=== PATIENT | male | born 1985 | race Caucasian/White ===

== ENCOUNTER 2023-12-01 16:04 | Inpatient (IN) | payer OTHER, SELFPAY ==
[2023-12-01] VITALS (11 sets, daily range): BP systolic 125–167; BP diastolic 82–116; BMI 19.1
--- NOTE | 2023-12-01 11:17 | ED.GENMED ---
History of Present Illness
General
Chief Complaint: Withdrawal Symptoms
Source: patient
Exam Limitations: none
Time Seen by Provider: 12/01/23 10:47
Nursing documentation reviewed up to this point in time: agreed with
Travel History
Have you had any contact with someone who has COVID-19?: No
Do you have any symptoms of coronavirus? Fever > 100 degrees, chills, cough, shortness of breath, sore throat, loss of taste or smell, muscle aches, or headache?: No
History of Present Illness
History of Present Illness:
38-year-old male with a history of hypertension, alcohol abuse disorder, pancreatitis
here with symptoms of alcohol withdrawal since he stopped drinking alcohol
was drinking 1 pint of whiskey a day
had been sober at the beginning of this year after most recent hospitalization in 06/29 but then relapsed a month later and has been drinking more regularly the past few weeks, binge drinking, having withdrawal shakes and n/v int he morning that
will only stop if he drinks more
he stopped drinking 2 days ago and has had many episodes of vomiting since, most recnet while in ED room
some mild upper abd pain
feels anxious, a little agitated, having some tactile disturbances/burning/crawlers
no halluciations auditory or visual
no headche
no confusion
no h/o alcohol withrawal seizure
Past History
Past History
ED Past Medical History: Other (Alcohol abuse)
ED Past Surgical History: None
Social History
Tobacco: Smoker
Alcohol: Chronic alcoholic
Drug: None
Personal: Single
Living: with family
Employment: Employed
Family History
Family History: Other (Noncontributory)
Review of Systems
Review of Systems
Allergies reviewed?: Yes
All Other Systems: Not applicable
Phy Exam
Physical Exam
Physical Exam:
GENERAL: Alert , in no apparent distress
EYE: pupils equal and reactive
NECK: Supple
ENT: o/p clr, mmm.
CARDIAC: tachycardia
LUNGS: Clear breath sounds bilaterally, no acute respiratory distress, no wheezes/rales/rhonchi
ABDOMEN: Soft, without focal tenderness, no r/g, no cvat, normal bowel sounds
NEUROLOGICAL: Alert and oriented, no focal neuro deficits, tremor with movement only
SKIN: Warm and dry, skin intact. no diparhoesis
MUSCULOSKELETAL: No edema, well perfused. neg lali's sign
PSYCH: Normal and appropriate interaction mild anxiety;
Scores
Withdrawal Assessment of Alcohol
Withdrawal Assessment Completed?: Yes
Nausea and Vomiting: Constant nausea, frequent dry heaves and vomiting
Tactile Disturbances: Mild itching, pins and needles, burning or numbness
Tremor: Not visible, but can be felt fingertip to fingertip
Auditory Disturbances: Not present
Paroxysmal Sweats: No sweat visible
Visual Disturbances: Not present
Anxiety: Mild anxiety
Headache, Fullness in Head: Not present
Agitation: Normal activity
Orientation and clouding of sensorium: Oriented and can do serial additions
Total CIWA Score: 11
Alcohol Withdrawal Medication Recommendation: Equal to MSAS Score 5-7. Lorazepam 1mg IV or PO NOW & re-assess q2hrs
Course
Orders/Labs/Results
Orders:
Orders
12/01/23 10:39
EKG [Electrocardiogram (*1)] Urgent
Reason for Study: Tachycardia
EKG- Treatment ONCE
12/01/23 11:12
Urinalysis Reflex To Culture Urgent
Date Specimen was Collected: 12/01/23
Time Specimen was Collected: 11:18
Urine Drug Abuse Screen Urgent
Date Specimen was Collected: 12/01/23
Time Specimen was Collected: 11:18
Lorazepam [Ativan] 1 mg IV NOW STA
Ondansetron Injectable [Zofran] 4 mg IV NOW STA
Thiamine Injection 100 mg IV NOW STA
12/01/23 11:15
0.9% Sodium Chloride 1000 ml [Nss] 1,000 ml IV 1,000 mls/hr
12/01/23 11:17
Alcohol Urgent
Complete Blood Count/With Diff Urgent
Comprehensive Metabolic Panel Urgent
Lipase Urgent
Comment: ADD ON
Magnesium Urgent
Phosphorus Urgent
Prothrombin Time Urgent
12/01/23 11:20
0.9% Sodium Chloride 1000 ml [Nss] 1,000 ml IV BOLUS
12/01/23 11:42
Add On- LAB Urgent
Tests Added?: lipase
12/01/23 12:36
CT Abd/Pel (IV only)-DH only Urgent
Comment:
Reason For Exam: pancreaitis
12/01/23 12:42
Lactated Ringers [Lr] 1,000 ml IV BOLUS
12/01/23 13:34
Pantoprazole [Protonix IV] 40 mg IV NOW STA
12/01/23 13:40
Venous Blood Gas Urgent
%Oxygen/Room Air: 21
12/01/23 13:53
Dextrose 5%/Lactringers 1000ML [D5lr] 1,000 ml IV 1,000 mls/hr
12/01/23 14:00
Dextrose 5%/Lactringers 1000ML [D5lr] 1,000 ml IV 1,000 mls/hr
Dextrose 5%/Lactringers 1000ML [D5lr] 1,000 ml IV 200 mls/hr
Abnormal Lab Results
12/01/23
11:17
WBC 3.3 L 10^3/uL
(4.8-10.8)
MCH 33.3 H pg
(27.0-31.0)
Absolute Lymphs (auto) 0.7 L 10^3/uL
(1.2-3.4)
Lymphocytes % 20.2 L %
(20.5-51.1)
Monocytes % 16.0 H %
(1.7-9.3)
Sodium 130 L mmol/L
(135-145)
Chloride 80 L mmol/L
(98-107)
Phosphorus 2.1 L mg/dl
(2.5-4.5)
Total Bilirubin 1.8 H mg/dl
(0.2-1.3)
AST 291 H U/L
(17-59)
ALT 295 H U/L
(0-50)
Alkaline Phosphatase 129 H U/L
(38-126)
Total Protein 8.9 H g/dl
(6.3-8.2)
Albumin 5.4 H g/dl
(3.5-5.0)
Lipase 539 H U/L
(23-300)
12/01/23 11:17
12/01/23 11:17
Vital Signs
Initial and Last Documented VS:
Initial Vital Signs
Temp Pulse Resp BP Pulse Ox
98.3 F 104 20 167/116 100
12/01/23 10:34 12/01/23 10:34 12/01/23 10:34 12/01/23 10:34 12/01/23 10:34
Last Documented Vital Signs
Temp Pulse Resp BP Pulse Ox
98.3 F 84 19 141/104 100
12/01/23 10:34 12/01/23 12:30 12/01/23 12:30 12/01/23 12:00 12/01/23 12:30
MDM/Problems Addressed
Differential Diagnosis Includes:
pancreatitis, alcohol withdrawal
MDM/Problems Addressed:
james spears 38 y/o M alcoholic pancreatitis/vomiting/withdrawal
stopped drinking saturday night
vomiting for the past few days even before he stopped drinking
ciwa was 11 initially
1 mg ativan and now 7 or8
labs show transamitiis, which pt whas h/o but this is acutely worse
na 130
AG 21 will add dextrose to LR fluids
will check VBG
lipase 500s and ct shows some peripancreatic edema
pt requires admission
*Critical Care Note
Total Time (30-74mins, 75-104mins- exclusive of procedures): Not Applicable
ED Attending Note
-
Portions of this chart may have been created with voice recognition software.� Occasional wrong word or��sound alike� substitutions may have occurred due to the inherent limitations of voice recognition software.
Discharge Plan
Departure
Patient Disposition: Admit
Date of Disposition: 12/01/23
Time of Disposition: 13:29
Admit to: Med/Surg
Presentation/result/management discussed w/ accepting MD/DO: Hospitalist
Condition: Fair
Covid-19: Not Applicable
Discharge Problem:
Acute pancreatitis, Alcohol withdrawal
Prescriptions:
No Action
thiamine HCl (vitamin B1) 100 MG tablet
100 mg PO DAILY
multivitamin with folic acid [Tab-A-Bernie] 1 TABLET tablet
1 tab PO DAILY
folic acid 1 mg tablet
1 mg PO DAILY
pantoprazole [Protonix] 40 mg tablet,delayed release (DR/EC)
40 mg PO DAILYPRN PRN (Reason: gerd)
Referrals:
Mauro Abraham MD [Family Provider] -
Interventions
Interventions:
*Risk Screen - Suicide Last Done: 12/01/23 10:34
*General Assessment Last Done: 12/01/23 10:34
*Neglect/Abuse Screening Last Done: 12/01/23 10:34
*ED COVID-19 Vaccine History Last Done: 12/01/23 10:34
ED- Neurological Assessment Last Done: 12/01/23 11:13
ED-Psychological Assessment Last Done: 12/01/23 11:13
Discharge Date and Time
Print Language: TAJIK
[2023-12-01] MEDS: ZOFRAN 4 MG IV ×2 (11:20→21:57)
[2023-12-01] MEDS: THIAMINE INJECTION 100 MG IV (11:20)
[2023-12-01] MEDS: ATIVAN 1 MG IV (11:22)
[2023-12-01 11:24] LABS: % Basophils 0.9 % (0-2); % Eosinophils 0.3 % (0-6); % Immature Granulocytes 0.3 % (0-0.5); % Lymphocytes 20.2 % (20.5-51.1); % Neutrophils 62.3 % (42.2-75.2); Absolute Lymphocytes 0.7 10^3/uL (1.2-3.4); Absolute Monocytes 0.5 10^3/uL (0.1-0.6); Hematocrit 43.5 % (39.0-52.0); Hemoglobin 15.9 g/dL (13.0-18.0); Mean Corp Hgb Conc. 36.6 g/dL (33.0-37.0); Mean Corpuscular Hgb 33.3 pg (27.0-31.0); Mean Platelet Volume 9.9 fL (7.4-10.4); Nucleated Red Blood Cells % 0 % (-); Platelet Count 168 10^3/uL (130-400); Red Blood Cell Count 4.78 10^6/uL (4.70-6.10); Red Cell Dist. Width 12.3 % (11.5-14.5); White Blood Cell Count 3.3 10^3/uL (4.8-10.8)
[2023-12-01] MEDS: NSS 1000 IV ×3 (11:24→21:57)
[2023-12-01 11:33] LABS: INR 1.01; PT 13.1 Sec (11.4-14.6)
[2023-12-01 11:40] LABS: ALT (SGPT) 295 U/L (0-50); AST (SGOT) 291 U/L (17-59); Albumin 5.4 g/dl (3.5-5.0); Alcohol None Detected; Alkaline Phosphatase 129 U/L (38-126); Blood Urea Nitrogen 14 mg/dl (9-20); Calcium 10.2 mg/dl (8.4-10.2); Carbon Dioxide 29 mmol/L (22-30); Chloride 80 mmol/L (98-107); Glucose 85 mg/dl (70-99); Magnesium 1.9 mg/dl (1.6-2.3); Phosphorus 2.1 mg/dl (2.5-4.5); Potassium 3.7 mmol/L (3.5-5.1); Sodium 130 mmol/L (135-145); Total Bilirubin 1.8 mg/dl (0.2-1.3); Total Protein 8.9 g/dl (6.3-8.2); eGFR > 60.00
[2023-12-01 11:59] LABS: Lipase 539 U/L (23-300)
[2023-12-01] MEDS: LR 1000 IV (13:29)
[2023-12-01] MEDS: PROTONIX IV 40 MG IV (13:51)
[2023-12-01] MEDS: D5LR 1000 IV (13:57)
[2023-12-01 14:10] LABS: Venous Blood Gas B.E. 5.4 mmol/L (-4 to +4); Venous Blood Gas O2 Sat % 99.2 %; Venous Blood Gas pCO2 38 mmHg (35-48); Venous Blood Gas pH 7.49 (7.32-7.43); Venous Blood Gas pO2 96 mmHg (30-50)
--- NOTE | 2023-12-01 15:31 | HPS.HSE ---
Family Physician
-
Family Physician: Mauro Abraham
Chief Complaint
-
nausea, vomiting
History of Present Illness
38-year-old man with a history of hypertension, alcohol abuse disorder, pancreatitis comes to hospital today with symptoms of alcohol withdrawal since he stopped drinking alcohol. He was drinking 1 pint of whiskey a day, he had been sober at the
beginning of this yea,r after most recent hospitalization in 06/29, but then relapsed a month later and has been drinking since then. He has also been binge drinking, and having withdrawal shakes, and n/v int he morning that will only stop if he
drinks more. He stopped drinking 2 days ago and has had many episodes of vomiting since then. While in ED he has had mild upper abd pain, feels anxious, agitated, tactile disturbances/burning/crawlers. However, he has had no halluciations
auditory or visual, no headache, no confusion, no h/o alcohol withrawal seizure.
Medical History
Past Medical History
Past Medical History: Reports Other
Additional Past Medical History:
Alcohol abuse
Pancreatitis
Gerd
Evelyne-Sage tear
alcoholic hepatitis
Past Surgical History: Reports None
Social History
Tobacco: Non-smoker
Alcohol: Chronic Alcoholic
Drug: None
Family History
Family History: Not pertinent
Allergies / Home Medications
Allergies reflects when Allergies were last updated in [facility].
Home Medications with original date entered in [facility]
Allergy/Medication List:
Allergies
Allergy/AdvReac Type Severity Reaction Status Date / Time
Sulfa (Sulfonamide Allergy Mild Rash Verified 12/01/23 10:33
Antibiotics)
Home Medications
multivitamin with folic acid 400 mcg tablet (Tab-A-Bernie) 1 tab PO DAILY Supplement 10/03/21
thiamine HCl (vitamin B1) 100 mg tablet 100 mg PO DAILY Supplement 10/03/21
folic acid 1 mg tablet 1 mg PO DAILY Supplement 06/18/23
pantoprazole 40 mg tablet,delayed release (Protonix) 40 mg PO DAILYPRN PRN gerd 12/01/23
Review of Systems
-
History Source: Patient
A 12 point ROS was completed and negative except as noted: Yes
Physical Exam
Vital Signs
Vital Signs
Temp Pulse Resp BP Pulse Ox
98.3 F 96 21 141/99 100
12/01/23 10:34 12/01/23 15:00 12/01/23 15:00 12/01/23 15:00 12/01/23 15:00
Physical Exam
General: Well Developed, Well Nourished, No Apparent Distress, Comfortable and Conversant
HEENT: NormoCephalic, Moist mucous membranes, Nose Appears Normal and Ears Appear Normal
Respiratory: Clear
Cardiac: S1/S2 and Regular Rhythm
GI: Soft, Non Tender and Non Distended
Musculoskeletal: No Clubbing, No Cyanosis and No Edema
Skin: Warm and Dry; No Rash or Jaundice
Neuro: Awake, Alert, Oriented and AO x 3
Psych: Calm
Laboratory Results
-
12/01/23 11:17
12/01/23 11:17
Laboratory Results
PT 13.1 Sec (11.4-14.6) 12/01/23 11:17
INR 1.01 12/01/23 11:17
Total Bilirubin 1.8 mg/dl (0.2-1.3) H 12/01/23 11:17
AST 291 U/L (17-59) H 12/01/23 11:17
ALT 295 U/L (0-50) H 12/01/23 11:17
Alkaline Phosphatase 129 U/L (38-126) H 12/01/23 11:17
Lipase 539 U/L (23-300) H 12/01/23 11:17
Data Reviewed
-
Lab Data: Labs Reviewed by me
Impression/Plan
-
IMPRESSION:
38 man with alcohol withdrawal and pancreatitis. Significant findings:
WBC 3.3
Na 130
Phos 2.1
TB 1.8
AST 291
ALT 295
Aphos 129
Lipase 539
Suspected minimal edematous changes of the pancreas, suggesting minimal/early acute pancreatitis.
No focal abnormal peripancreatic fluid collection.
Diffuse fatty liver.
Cannot exclude small hiatal hernia.
Likely sigmoid diverticulosis.
PLAN:
1. Pancreatitis - likely from alcohol
NPO
IV saline
Pain control
2. Alcohol WD
Benzodiazepines per protocol
3. Low Na - likely hypovolemic
IV saline
4. Low phos - likely malnutrition
Supplement
5. Alcoholism - will need outpt support to maintain sobriety
Social work consult
Full code
VCD for DVTp
[2023-12-01 16:42] LABS: Urine Albumin Trace (Neg - Trace); Urine Bilirubin 1+ (Negative); Urine Character Clear (Clear); Urine Color Yellow; Urine Glucose 3+ (Negative); Urine Ketone 3+ (Negative); Urine Leukocyte Negative (Negative); Urine Nitrite Negative (Negative); Urine Occult Blood Negative (Negative); Urine Specific Gravity 1.005 (<1.030); Urine Urobilinogen 2+ (Neg - 1+)
[2023-12-01 16:52] LABS: Amphetamines Negative (Negative); Barbiturates Negative (Negative); Benzodiazepines Positive (Negative); Buprenorphine Negative (Negative); Cocaine Negative (Negative); Marijuana Positive (Negative); Methadone Negative (Negative); Methamphetamines Negative (Negative); Opiates Negative (Negative); Phencyclidine Negative (Negative); Tricyclic Antidepressants Negative (Negative)
[2023-12-01 17:08] LABS: Fentanyl, Urine Negative (Negative)
[2023-12-01 17:41] LABS: INR 1.17; PT 14.8 Sec (11.4-14.6)
[2023-12-01 17:42] LABS: APTT 27.2 Sec (23.4-35.0)
[2023-12-01 17:43] LABS: Magnesium 1.7 mg/dl (1.6-2.3); Phosphorus 1.1 mg/dl (2.5-4.5)
[2023-12-01] MEDS: THIAMINE INJECTION 200 MG IV ×2 (18:15→23:50)
--- NOTE | 2023-12-01 21:45 | PTCARENOTE ---
Pt requested sleep medication. ALTERATIONS EXPERT made aware, new order provided, see MAR. Will continue to monitor.
--- NOTE | 2023-12-01 21:50 | PTCARENOTE ---
Pt complained of post nasal drip, requested saline spray. Pt complained of 5/10 pain throughout RUQ. MARKETING AND OUTREACH COORDINATOR made aware, new orders provided, see MAR.
[2023-12-01] MEDS: PROTONIX 40 MG PO (21:57)
[2023-12-01] MEDS: MELATONIN 5 MG PO (21:57)
[2023-12-01] MEDS: OCEAN, SALINE MIST 1 SPRAYS NASAL (22:06)
[2023-12-01] MEDS: TORADOL 15 MG IV (22:30)
[2023-12-02] MEDS: NSS 1000 IV ×3 (02:53→13:09)
[2023-12-02 06:58] LABS: Hematocrit 35.7 % (39.0-52.0); Hemoglobin 12.9 g/dL (13.0-18.0); Mean Corp Hgb Conc. 36.1 g/dL (33.0-37.0); Mean Corpuscular Hgb 33.4 pg (27.0-31.0); Mean Corpuscular Volume 92.5 fL (80.0-94.0); Mean Platelet Volume 10.7 fL (7.4-10.4); Platelet Count 139 10^3/uL (130-400); Red Blood Cell Count 3.86 10^6/uL (4.70-6.10); Red Cell Dist. Width 12.1 % (11.5-14.5); White Blood Cell Count 3.9 10^3/uL (4.8-10.8)
[2023-12-02 07:00] VITALS: BP 130/93
[2023-12-02 07:21] LABS: ALT (SGPT) 189 U/L (0-50); AST (SGOT) 189 U/L (17-59); Albumin 3.8 g/dl (3.5-5.0); Alkaline Phosphatase 89 U/L (38-126); Blood Urea Nitrogen 5 mg/dl (9-20); Calcium 8.4 mg/dl (8.4-10.2); Carbon Dioxide 27 mmol/L (22-30); Chloride 96 mmol/L (98-107); Estimated Creatinine Clearance 114 ml/min; Glucose 71 mg/dl (70-99); Lipase 580 U/L (23-300); Magnesium 1.7 mg/dl (1.6-2.3); Potassium 3.4 mmol/L (3.5-5.1); Sodium 133 mmol/L (135-145); Total Bilirubin 1.9 mg/dl (0.2-1.3); Total Protein 6.5 g/dl (6.3-8.2); eGFR > 60.00
[2023-12-02] MEDS: THIAMINE INJECTION 200 MG IV ×3 (07:55→23:54)
[2023-12-02] MEDS: ZOFRAN 4 MG IV ×2 (08:04→21:33)
--- NOTE | 2023-12-02 13:07 | W.PN.HOSP.TC ---
Today's Communication/Plan
-
trial of CL diet
slow IVF
continue monitoring for alc withdrawal
Assessment / Plan
Assessment / Plan
CT a/p
Suspected minimal edematous changes of the pancreas, suggesting minimal/early acute pancreatitis. No focal abnormal peripancreatic fluid collection.
Diffuse fatty liver.
Cannot exclude small hiatal hernia.
Likely sigmoid diverticulosis.

1. Acute pancreatitis
History of recurrent pancreatitis
Elevated liver enzymes
-Presumed alcohol use related pancreatitis
-CTAP report as above
-Minimal lipase elevation of 539 at admission
-Was maintained on IV fluid overnight
-Start on trial of clear liquid diet
-Check right upper quadrant ultrasound
2. Alcohol use disorder
History of alcohol withdrawal
-Patient had tried alcohol rehab 3 times
-Was sober few months back although relapsed
-Last reported drink on Saturday
-Admitted on MSAS with Ativan
3. GERD
-Continue oral Protonix, increase frequency to twice
4. Nausea/vomiting
-Likely from pancreatitis
-Continue symptomatic care
Normocytic anemia
Mild hyponatremia
Hypokalemia
Hepatic steatosis
Diverticulosis
DVT prophylaxis -SCD
Full code
Anticipated Discharge: 24 - 48 hours
Subjective/Interval History
-
Date of Service: December 02, 2023
Denies having excessive abdominal pain
Some nausea without vomiting
Afebrile overnight
Objective Data
-
Labs:
Laboratory Results
12/02/23
05:38
WBC 3.9 L
Hgb 12.9 L
Hct 35.7 L
Plt Count 139
Sodium 133 L
Potassium 3.4 L
Chloride 96 L
Carbon Dioxide 27
BUN 5 L
Creatinine 0.7
Glucose 71
Calcium 8.4 D
Total Bilirubin 1.9 H
AST 189 H
ALT 189 H
Alkaline Phosphatase 89
Vital Signs:
Vital Signs
Temp Pulse Resp BP Pulse Ox
98.1 F 84 16 130/93 98
12/02/23 07:00 12/02/23 07:00 12/02/23 07:00 12/02/23 07:00 12/02/23 07:00
I&O
12/01/23 12/02/23 12/03/23
06:59 06:59 06:59
Intake Total 2520 / 2520
Output Total 0 / 0
Balance 2520 / 2520
Review of Systems
-
Respiratory: Reports No Symptoms
Cardiac: Reports No Symptoms
Abdomen/GI: Reports Abdominal Pain and Nausea; Denies Vomiting
Physical Exam
-
General: Negative Appears in Distress
HEENT: Negative Oxygen
GI: Soft and Tender (epigastric )
Musculoskeletal: No Edema
Neuro: Awake, Alert and Oriented
Psych: Calm
[2023-12-02] MEDS: KCL 20 MEQ PO (13:39)
[2023-12-02] MEDS: TYLENOL 650 MG PO (13:40)
[2023-12-02 15:00] VITALS: BP 134/87
[2023-12-02 15:05] VITALS: BMI 19.1
[2023-12-02] MEDS: THERAGRAN 1 TABLET PO (18:03)
[2023-12-02] MEDS: OCEAN, SALINE MIST 1 SPRAYS NASAL (21:30)
--- NOTE | 2023-12-02 21:30 | PTCARENOTE ---
Pt requested medication to sleep, REGIONAL ADMINISTRATIVE ASSISTANT made aware, new order provided, see MAR. Will continue to monitor.
[2023-12-02] MEDS: PROTONIX 40 MG PO (21:33)
[2023-12-02] MEDS: MELATONIN 5 MG PO (21:58)
[2023-12-02 23:00] VITALS: BP 128/93
[2023-12-03] MEDS: NSS 1000 IV ×2 (00:24→09:05)
[2023-12-03 06:32] LABS: ALT (SGPT) 191 U/L (0-50); AST (SGOT) 232 U/L (17-59); Albumin 4.2 g/dl (3.5-5.0); Alkaline Phosphatase 93 U/L (38-126); Blood Urea Nitrogen 2 mg/dl (9-20); Calcium 9.6 mg/dl (8.4-10.2); Carbon Dioxide 24 mmol/L (22-30); Chloride 99 mmol/L (98-107); Estimated Creatinine Clearance > 125 ml/min; Glucose 86 mg/dl (70-99); Magnesium 1.7 mg/dl (1.6-2.3); Phosphorus 2.1 mg/dl (2.5-4.5); Potassium 3.5 mmol/L (3.5-5.1); Sodium 135 mmol/L (135-145); Total Bilirubin 1.6 mg/dl (0.2-1.3); Total Protein 7.1 g/dl (6.3-8.2); eGFR > 60.00
--- NOTE | 2023-12-03 06:32 | PTCARENOTE ---
Pt complained of reflux, COLOR PRINTER OPERATOR made aware, new order provided, see MAR. Will continue to monitor.
[2023-12-03] MEDS: TUMS 1 TABLET PO (06:34)
[2023-12-03 07:00] VITALS: BP 131/91
[2023-12-03] MEDS: THERAGRAN 1 TABLET PO (09:05)
[2023-12-03] MEDS: THIAMINE INJECTION 200 MG IV ×3 (09:05→23:27)
--- NOTE | 2023-12-03 11:38 | W.PN.HOSP.TC ---
Today's Communication/Plan
-
FL diet for lunch and LF for dinner
d/c further IVF
possible d/c in 24 hrs
Assessment / Plan
Assessment / Plan
CT a/p
Suspected minimal edematous changes of the pancreas, suggesting minimal/early acute pancreatitis. No focal abnormal peripancreatic fluid collection.
Diffuse fatty liver.
Cannot exclude small hiatal hernia.
Likely sigmoid diverticulosis.

1. Acute pancreatitis
History of recurrent pancreatitis
Elevated liver enzymes
-Presumed alcohol use related pancreatitis
-CTAP report as above
-Minimal lipase elevation of 539 at admission
-Right upper quadrant ultrasound showing hepatic steatosis. No gallstones
-Start trial of full liquid diet from lunch and advance as tolerated to low-fat diet
2. Alcohol use disorder
History of alcohol withdrawal
-Patient had tried alcohol rehab 3 times
-Was sober few months back although relapsed
-Last reported drink on Saturday
-Admitted on [facility] with Ativan
-No signs of withdrawal at this point
3. GERD
-Continue oral Protonix, increase frequency to twice
4. Nausea/vomiting
-Likely from pancreatitis
-Slowly improving, continue symptomatic care
Normocytic anemia
Mild hyponatremia
Hypokalemia
Hepatic steatosis
Diverticulosis
DVT prophylaxis -SCD
Full code
Anticipated Discharge: Within 24 hours
Subjective/Interval History
-
Date of Service: December 03, 2023
Denies of having any abdominal pain and night
Nausea is improved
Able to tolerate diet without problem
Objective Data
-
Labs:
Laboratory Results
12/03/23
05:16
Sodium 135
Potassium 3.5
Chloride 99
Carbon Dioxide 24
BUN 2 L
Creatinine 0.6 L
Glucose 86
Calcium 9.6
Total Bilirubin 1.6 H
AST 232 H
ALT 191 H
Alkaline Phosphatase 93
Vital Signs:
Vital Signs
Temp Pulse Resp BP Pulse Ox
98.7 F 86 16 131/91 97
12/03/23 07:00 12/03/23 07:00 12/03/23 07:00 12/03/23 07:00 12/03/23 07:00
I&O
12/02/23 12/03/23 12/04/23
06:59 06:59 06:59
Intake Total 2520 / 2520 5880 / 5880
Output Total 0 / 0
Balance 2520 / 2520 5880 / 5880
Review of Systems
-
Respiratory: Reports No Symptoms
Cardiac: Reports No Symptoms
Abdomen/GI: Reports Nausea; Denies Abdominal Pain or Vomiting
Physical Exam
-
General: Negative Appears in Distress
HEENT: Negative Oxygen
GI: Soft, Nontender and Nondistended
Musculoskeletal: No Edema
Neuro: Awake, Alert and Oriented
Psych: Calm
[2023-12-03 15:00] VITALS: BP 130/93
--- NOTE | 2023-12-03 15:05 | CM ---
Alert awake oriented patient who lives with his parents Walt Roth who lives in a 2 story home with 3 step to enter and 30 steps to bed and bathroom. He is independent in all activities of daily living.He was offered VN he declined need.He
declined substance abuse counseling he has been in many program in past..
NO VN hx / No SNF history
Pharmacy [facility]
PCP DR Wild Bravo
PLAN Home Declined VN
[2023-12-03] MEDS: ZOFRAN 4 MG IV (17:28)
[2023-12-03] MEDS: PROTONIX 40 MG PO (21:25)
[2023-12-03] MEDS: MELATONIN 5 MG PO (21:25)
[2023-12-03 23:25] VITALS: BP 120/83
[2023-12-04 06:22] LABS: ALT (SGPT) 346 U/L (0-50); AST (SGOT) 503 U/L (17-59); Albumin 4.4 g/dl (3.5-5.0); Alkaline Phosphatase 106 U/L (38-126); Blood Urea Nitrogen 6 mg/dl (9-20); Calcium 9.9 mg/dl (8.4-10.2); Carbon Dioxide 25 mmol/L (22-30); Chloride 100 mmol/L (98-107); Estimated Creatinine Clearance 114 ml/min; Glucose 107 mg/dl (70-99); Potassium 3.9 mmol/L (3.5-5.1); Sodium 134 mmol/L (135-145); Total Bilirubin 1.3 mg/dl (0.2-1.3); Total Protein 7.4 g/dl (6.3-8.2); eGFR > 60.00
--- NOTE | 2023-12-04 06:31 | PTCARENOTE ---
Critical AST of 503 reported to KIKE Strong. No new orders at this time. Care ongoing.
[2023-12-04 07:30] VITALS: BP 123/88
[2023-12-04] MEDS: THIAMINE INJECTION 200 MG IV (08:00)
[2023-12-04] MEDS: THERAGRAN 1 TABLET PO (08:00)
--- NOTE | 2023-12-04 12:49 | CON.GI ---
Addendum entered and electronically signed by Eugenia Martin MD 12/04/23 16:00:
I saw and examined the patient.
The ETL LEAD's note was reviewed and I agree with the note.
Comment: This is a 38-year-old male who has a history of alcoholism, alcohol hepatitis, recurrent alcohol pancreatitis and has had multiple visits to the ER for alcohol withdrawal. He also has a history of LA grade D esophagitis which did improve
on PPI on repeat endoscopy in 2022 and has been on Protonix. He has been in rehab a few times in the past both inpatient and outpatient but unfortunately had relapsed he says he also has tried naltrexone in the past. He had been drinking alcohol
up until 11/28 and he presented to the emergency room on 11/30 with symptoms of nausea vomiting and withdrawal and also was noted to have mild alcohol pancreatitis with abnormal LFTs. His symptoms had improved and he was actually going to be
discharged home today but he was noted to have an acute rise in transaminitis with AST greater than ALT for which we were consulted. He says that he been drinking excessive amounts of alcohol especially during COVID in 2018 and he was drinking
about 2 pints of whiskey daily then and he has been cutting back to 1 pint daily.
Assessment and plan 1 alcohol withdrawal symptoms which have improved and mild recurrent alcohol pancreatitis which also has improved
2 abnormal LFTs with worsening AST and ALT today, bilirubin and alkaline phosphatase have trended down. I do still think this is most likely alcohol hepatitis, ultrasound shows hepatic steatosis no obvious cirrhosis noted and no gallstones noted no
ductal dilatation seen. Will get acute viral hepatitis serologies and repeat LFTs in a.m. if they are still trending up then will proceed with further workup to rule out other underlying chronic liver diseases including autoimmune hepatitis. may
also need MRI. If LFTs are trending down will need further workup as outpatient including FibroScan and also advised strict alcohol abstinence told him to follow-up for outpatient rehab he does not want to go for inpatient alcohol rehab and also
consider restarting naltrexone he said he did not really have much success with AA meetings in the past.
3. History of esophagitis continue PPI
Original Note:
Consultation
-
Date/Time Consultation Requested: 12/04/23 @ 08:09
Date/Time Consultation Performed: 12/04/23 @ 14:00
Requesting Provider: Dr. Glasgow
Performing Provider: KIKE Barakat; Dr. Martin
Reason for Consultation: acute transaminitis
Medical History
Chief Complaint / HPI
Chief Complaint: nausea, vomiting
History of Present Illness:
The pt is a 38 yo male with a PMH significant for HTN, alcohol abuse, prior episode of pancreatitis, alcoholic hepatitis, LA grade D esophagitis on PPI, who initially presented to the ER with complaints of nausea and vomiting on 11/30. He presented
with symptoms of alcohol withdrawal after stopping alcohol use. He had stopped drinking 2 days prior to admission, and developed nausea with vomiting. Also with complaints of abdominal pain, anxiety, and shakes. He underwent CT imaging of the
abdomen and pelvis which showed findings consistent with minimal/early pancreatitis with no fluid collections or necrosis. Other findings include diffuse fatty liver, possible small hiatal hernia, and sigmoid diverticulosis without evidence of
diverticulitis although limited given no oral contrast. Initially on admission his LFTs were elevated showing a total bilirubin of 1.8, AST 291, ALT 295, and alk phos 129. His lipase was mildly elevated at 539. He was treated for pancreatitis
with IV fluids along with clear liquid diet as he improved. Also being monitored for alcohol withdrawal. He was treated symptomatically for his nausea and vomiting. He subsequently underwent ultrasound of the abdomen which did not show any acute
findings such as biliary ductal dilation or evidence of cholecystitis or gallstone. This morning his LFTs were repeated and noted to be up-trending with an AST of 503, and ALT 346 with a normalized alk phos and total bilirubin. Pertinent lab
findings include sodium 134, WBC 3.9, hemoglobin 12.9, albumin 4.4, potassium 3.9. We are now being asked to evaluate for his increasing transaminases. Upon review of prior records, he was seen by our group in June 2022 with hematemesis. At
that time thought to be secondary to Evelyne-Sage tear with a normal hemoglobin. He underwent EGD with Dr. Mcneill on 06/12/2022 which did show LA grade D esophagitis and was advised to continue on PPI twice daily. He had subsequent endoscopy
outpatient on August 03, 2022 which showed improvement with LA grade a reflux esophagitis with no evidence of Kaiser's esophagus and mild gastritis. He was advised to continue on PPI twice daily and then taper to once daily. The patient notes he
has had recurrent ER evaluations and admissions due to alcohol abuse. He notes trying to quit multiple times in the past and has been through rehab with no success. He notes that his last drink was on Saturday. After stopping he developed
significant sweats, nausea, and vomiting. These are very typical symptoms he experiences when he stops alcohol. He does note he has had some increased indigestion with near regurgitation, despite taking pantoprazole 40 mg daily, but he notes that
he did taper off of this recently. He developed significant pain in the upper abdomen that radiated to his back, that was severe in nature therefore warranting ER evaluation. He denies any unintentional weight loss, change in bowel habits, signs
of bleeding such as melena, hematochezia, or hematemesis, fevers, or chills.He denies any unintentional weight loss, change in bowel habits, signs of bleeding such as melena, hematochezia, or hematemesis, fevers, or chills.He denies any history of
hepatitis or liver disease. He does drink alcohol chronically about 1 pint of liquor daily. He was smoking cigarettes up to 6 months ago and has since quit. He denies any history of IV drug use but does have a history of opioid use in the past.
He notes at this point in time his nausea and vomiting has subsided and he is tolerating a regular diet. His pain is also improving as well. Prior EGD as noted above. He has never had a colonoscopy. He does note he has a family history of
autoimmune disease in which his brother and father have celiac disease. He was tested in the past and was negative. He has had pancreatitis in the past thought to be secondary to alcohol use. He notes he does take Tylenol as needed but not in
excess. He denies any new medications started at home. I did review his medication list here and there are no significant medications that would induce liver injury. Upon review of prior labs he does have chronic elevation of his AST and ALT
anywhere from normal to the upper 300 range over the past 4 years.
Past Medical History
Past Medical History: GERD, HTN and Other (Alcohol abuse, pancreatitis, alcoholic hepatitis, Evelyne-Sage tear)
Past Surgical History: None
Social History
Tobacco: Former Smoker
Alcohol: Chronic Alcoholic
Drug: Former User (opiates)
Living: With Family
Family History
Family History: Other (celiac disease- brother and father)
Allergies / Home Medications
Allergy/AdvReac Type Severity Reaction Status Date / Time
Sulfa (Sulfonamide Allergy Rash Verified 12/03/23 21:20
Antibiotics)
�Medication �Instructions �Recorded
multivitamin with folic acid 400 1 tab PO DAILY Supplement 10/03/21
mcg tablet (Tab-A-Bernie)
thiamine HCl (vitamin B1) 100 mg 100 mg PO DAILY Supplement 10/03/21
tablet
folic acid 1 mg tablet 1 mg PO DAILY Supplement 06/18/23
pantoprazole 40 mg tablet,delayed 40 mg PO DAILYPRN PRN gerd 12/01/23
release (Protonix)
Review of Systems
-
History Source: Patient
Constitutional: Reports Night Sweats
EENT: Reports No Symptoms
Respiratory: Reports No Symptoms
Cardiac: Reports No Symptoms
Abdomen/GI: Reports Abdominal Pain, Nausea and Vomiting
: Reports No Symptoms
Vital Signs
Temp Pulse Resp BP Pulse Ox
98.2 F 100 16 123/88 98
12/04/23 07:30 12/04/23 07:30 12/04/23 07:30 12/04/23 07:30 12/04/23 07:30
Physical Exam
Exam
General: Well Developed, Well Nourished and Other (Thin appearing male, appears stated age, in no acute distress)
HEENT: Normocephalic, Anicteric and Atraumatic
Respiratory: Clear
Cardiac: S1/S2 and Regular Rhythm
Breast: N/A
GI: Soft, Non Tender, Non Distended, Normal Bowel Sounds and Flat
Rectal: Deferred by Provider
Musculoskeletal: No Edema
Skin: Warm and Dry
Neuro: Awake, Alert and Oriented
Psych: Calm
Results
WBC 3.9 10^3/uL (4.8-10.8) L 12/02/23 05:38
Hgb 12.9 g/dL (13.0-18.0) L 12/02/23 05:38
Hct 35.7 % (39.0-52.0) L 12/02/23 05:38
MCV 92.5 fL (80.0-94.0) 12/02/23 05:38
Plt Count 139 10^3/uL (130-400) 12/02/23 05:38
Absolute Neuts (auto) 2.0 10^3/uL (1.4-6.5) 12/01/23 11:17
PT 14.8 Sec (11.4-14.6) H 12/01/23 17:24
INR 1.17 12/01/23 17:24
APTT 27.2 Sec (23.4-35.0) 12/01/23 17:24
Sodium 134 mmol/L (135-145) L 12/04/23 05:18
Potassium 3.9 mmol/L (3.5-5.1) 12/04/23 05:18
Chloride 100 mmol/L (98-107) 12/04/23 05:18
Carbon Dioxide 25 mmol/L (22-30) 12/04/23 05:18
BUN 6 mg/dl (9-20) L 12/04/23 05:18
Creatinine 0.7 mg/dL (0.7-1.3) 12/04/23 05:18
Calcium 9.9 mg/dl (8.4-10.2) 12/04/23 05:18
Total Bilirubin 1.3 mg/dl (0.2-1.3) 12/04/23 05:18
AST 503 U/L (17-59) H* 12/04/23 05:18
ALT 346 U/L (0-50) H 12/04/23 05:18
Alkaline Phosphatase 106 U/L (38-126) 12/04/23 05:18
Lipase 580 U/L (23-300) H 12/02/23 05:38
Diagnostic Image Results:
12/03/23 US abdomen:
'1. Increased hepatic echogenicity most consistent with severe fatty infiltration.
2. Limited pancreatic evaluation at ultrasound. No abnormal focal pancreatic lesion or peripancreatic collection is identified.'
12/01/23 CT A/P w/IV contrast only: IMPRESSION: 'Suspected minimal edematous changes of the pancreas, suggesting minimal/early acute pancreatitis. No focal abnormal peripancreatic fluid collection. Diffuse fatty liver. Cannot exclude small hiatal
hernia. Likely sigmoid diverticulosis.'
Prior GI Procedures:
EGD: Dr. Mcneill on 06/12/2022 which did show LA grade D esophagitis. celiac negative.
August 03, 2022, Dr. Mcneill: LA grade a reflux esophagitis with no evidence of Kaiser's esophagus and mild gastritis.
Colonoscopy: none
Assessment / Plan
-
The pt is a 38 yo male with a PMH significant for HTN, alcohol abuse, prior episode of pancreatitis, alcoholic hepatitis, LA grade D esophagitis on PPI, who initially presented to the ER with complaints of nausea and vomiting on 11/30. He presented
with symptoms of alcohol withdrawal after stopping alcohol use. Upon CT imaging he was found to have findings consistent with a very mild pancreatitis with no complications. His LFTs were elevated on admission with normalization of his bilirubin
and alkaline phosphatase, but up-trending AST and ALT with unclear etiology. Ultrasound imaging was done which showed no acute findings. There have been no new medications. He denies history of hepatitis or IV drug use. AST in the 500s and ALT
in the 300s, possibly secondary to alcoholic hepatitis. On admission his INR was normal with a minimally elevated PT. he has been improved symptomatically from a pancreatitis perspective and is tolerating a low-fat diet.
Problem list:
-pancreatitis 2/2 alcohol use
-chronic ETOH abuse
-Abnormal LFT's, hepatocellular pattern
-mild hyponatremia
-family hx of celiac disease
-CT/US imaging showing hepatic steatosis
-hx GERD/LA grade D esophagitis
Recommendations:
-Etiology of rising LFT's possibly secondary to alcoholic induced liver injury v underlying autoimmune component v other. AST>ALT pattern consistent with alcohol.
---Imaging with no significant findings aside from hepatic steatosis.
-At this time will check hepatitis serologies and autoimmune markers, given chronicity of LFT elevation primarily transaminases
-Recheck INR to make sure this is not up-trending
-Check Tylenol level
-DF is low at 9.6, no steroids indicated
-Avoid hepatotoxins
-Consider MRI imaging for further evaluation if LFT's are up-trending
-Advised on alcohol abstinence
-He will need OP GI follow-up for fatty liver eval for Fibroscan and further underlying liver work-up
-Alcohol withdrawal protocol
-Further recommendations pending above
Data Reviewed
-
CT Scan: Report Reviewed by me
Ultrasound: Report Reviewed by me
-
-
Thank you for consultation and allowing me to participate in the patient's care. Please call the media relations manager GI physician during the after hours with any questions or concerns.
--- NOTE | 2023-12-04 12:52 | W.PN.HOSP.TC ---
Today's Communication/Plan
-
GI eval
f/u LFT in AM
Assessment / Plan
Assessment / Plan
CT a/p
Suspected minimal edematous changes of the pancreas, suggesting minimal/early acute pancreatitis. No focal abnormal peripancreatic fluid collection.
Diffuse fatty liver.
Cannot exclude small hiatal hernia.
Likely sigmoid diverticulosis.

1. Acute pancreatitis
History of recurrent pancreatitis
-Presumed alcohol use related pancreatitis
-CTAP report as above
-Minimal lipase elevation of 539 at admission
-Right upper quadrant ultrasound showing hepatic steatosis. No gallstones
-tolerating LF diet
2. Acute transaminitis
-LFT uptrending today.
-concern of possible alcoholic hepatitis
-GI involved in care for further help
2. Alcohol use disorder
History of alcohol withdrawal
-Patient had tried alcohol rehab 3 times
-Was sober few months back although relapsed
-Last reported drink on Saturday
-No signs of withdrawal at this point
-stop further MSAS/ativan, out of window
3. GERD
-Continue oral Protonix, increase frequency to twice
4. Nausea/vomiting - resolved
-Likely from pancreatitis
-Slowly improving, continue symptomatic care
Normocytic anemia
Mild hyponatremia
Hypokalemia
Hepatic steatosis
Diverticulosis
DVT prophylaxis -SCD
Full code
Anticipated Discharge: Within 24 hours
Subjective/Interval History
-
Date of Service: December 04, 2023
denies abd pain/n/v
no new issues reported overnight
Objective Data
-
Labs:
Laboratory Results
12/04/23
05:18
Sodium 134 L
Potassium 3.9
Chloride 100
Carbon Dioxide 25
BUN 6 L
Creatinine 0.7
Glucose 107 H
Calcium 9.9
Total Bilirubin 1.3
AST 503 H*
ALT 346 H
Alkaline Phosphatase 106
Vital Signs:
Vital Signs
Temp Pulse Resp BP Pulse Ox
98.2 F 100 16 123/88 98
12/04/23 07:30 12/04/23 07:30 12/04/23 07:30 12/04/23 07:30 12/04/23 07:30
I&O
12/03/23 12/04/23 12/05/23
06:59 06:59 06:59
Intake Total 5880 / 5880 2360 / 2360
Balance 5880 / 5880 2360 / 2360
Review of Systems
-
Respiratory: Reports No Symptoms
Cardiac: Reports No Symptoms
Abdomen/GI: Reports No Symptoms
Physical Exam
-
General: Negative Appears in Distress
HEENT: Negative Oxygen
GI: Soft, Nontender and Nondistended
Musculoskeletal: No Edema
Neuro: Awake, Alert and Oriented
Psych: Calm
[2023-12-04 15:15] VITALS: BP 122/88
[2023-12-04 15:33] LABS: INR 0.98
[2023-12-04 16:07] LABS: Acetaminophen < 10 ug/ml (10-30)
[2023-12-04] MEDS: MELATONIN 5 MG PO (20:50)
--- NOTE | 2023-12-04 21:00 | PTCARENOTE ---
Patient rang call lora and stated that he was having some back pain r/t the bed. Patient rates pain at 3/10. Patient requesting Tylenol, Tylenol discontinued r/t increasing AST/ALT. KIKE Perez notified, order received for Liodocaine Patch. Care
ongoing.
[2023-12-04] MEDS: LIDOCAINE 4% PATCH 1 PATCH TOPICAL (21:22)
[2023-12-04 23:27] VITALS: BP 118/79
--- NOTE | 2023-12-05 04:40 | PTCARENOTE ---
Patient reports he is having back pain again, states it is 4/10. KIKE Bergeron notified. No new medications ordered d/t increasing LFTs. Patient encouraged to sit in chair, ambulate, or change positions to alleviate back pain from hospital bed.
Care ongoing.
[2023-12-05 06:37] LABS: ALT (SGPT) 456 U/L (0-50); AST (SGOT) 521 U/L (17-59); Albumin 4.4 g/dl (3.5-5.0); Alkaline Phosphatase 82 U/L (38-126); Blood Urea Nitrogen 13 mg/dl (9-20); Calcium 10.1 mg/dl (8.4-10.2); Carbon Dioxide 26 mmol/L (22-30); Chloride 96 mmol/L (98-107); Estimated Creatinine Clearance 114 ml/min; Glucose 83 mg/dl (70-99); Potassium 3.6 mmol/L (3.5-5.1); Sodium 135 mmol/L (135-145); Total Bilirubin 0.8 mg/dl (0.2-1.3); Total Protein 7.3 g/dl (6.3-8.2); eGFR > 60.00
[2023-12-05 07:00] VITALS: BP 142/95
[2023-12-05] MEDS: PROTONIX 40 MG PO (07:47)
[2023-12-05] MEDS: THERAGRAN 1 TABLET PO (07:47)
--- NOTE | 2023-12-05 10:10 | CM ---
Addendum entered by Zoraida Leach 12/05/23 16:35:
Patient stated that he is for discharge home and that his father was present to take him home. Patient indicated that he has no needs at this time and that he felt better about his stay following his conversations with nursing. CM will continue to
follow for discharge planning needs.
Original Note:
Patient seen at bedside with mother also present. Patient with concerns about stay, nursing and reverse unit operator fisherman updated. Patient anticipates discharge home with no needs at this time. CM will continue to follow for discharge planning needs.
Plan; home with no needs anticipated currently
--- NOTE | 2023-12-05 13:25 | W.PN.HOSP.TC ---
Today's Communication/Plan
-
f/u LFT
await repeat GI eval today
Assessment / Plan
Assessment / Plan
CT a/p
Suspected minimal edematous changes of the pancreas, suggesting minimal/early acute pancreatitis. No focal abnormal peripancreatic fluid collection.
Diffuse fatty liver.
Cannot exclude small hiatal hernia.
Likely sigmoid diverticulosis.

1. Acute pancreatitis - resolved
History of recurrent pancreatitis
-Presumed alcohol use related pancreatitis
-CTAP report as above
-Minimal lipase elevation of 539 at admission
-Right upper quadrant ultrasound showing hepatic steatosis. No gallstones
-tolerating LF diet
2. Acute transaminitis
-LFT remains up trended, plateauing somewhat
-concern of possible alcoholic hepatitis
-Await GI eval, considering possible MRI abd
-Serology collected for ROMELIA/mitochondrial antibody/F-actin ab
2. Alcohol use disorder
History of alcohol withdrawal
-Patient had tried alcohol rehab 3 times
-Was sober few months back although relapsed
-Last reported drink on Saturday
-No signs of withdrawal at this point
-stop further MSAS/ativan, out of window
3. GERD
-Continue oral Protonix, increase frequency to twice
4. Nausea/vomiting - resolved
-Likely from pancreatitis
-Slowly improving, continue symptomatic care
Normocytic anemia
Mild hyponatremia
Hypokalemia
Hepatic steatosis
Diverticulosis
DVT prophylaxis -SCD
Full code
Anticipated Discharge: Within 24 hours
Subjective/Interval History
-
Date of Service: December 05, 2023
Denies abdominal pain/nausea/vomiting
No other acute issues overnight
Objective Data
-
Labs:
Laboratory Results
12/05/23
05:10
Sodium 135
Potassium 3.6
Chloride 96 L
Carbon Dioxide 26
BUN 13
Creatinine 0.7
Glucose 83
Calcium 10.1
Total Bilirubin 0.8
AST 521 H*
ALT 456 H
Alkaline Phosphatase 82
Vital Signs:
Vital Signs
Temp Pulse Resp BP Pulse Ox
97.7 F 111 17 142/95 100
12/05/23 07:00 12/05/23 07:00 12/05/23 07:00 12/05/23 07:00 12/05/23 07:00
I&O
12/04/23 12/05/23 12/06/23
06:59 06:59 06:59
Intake Total 2360 / 2360 2099
Balance 2360 / 2360 2099
Review of Systems
-
Respiratory: Reports No Symptoms
Cardiac: Reports No Symptoms
Abdomen/GI: Reports No Symptoms
Physical Exam
-
General: Negative Appears in Distress
HEENT: Negative Oxygen
GI: Soft, Nontender and Nondistended
Musculoskeletal: No Edema
Neuro: Awake, Alert and Oriented
Psych: Calm
[2023-12-05 15:00] VITALS: BP 125/88
--- NOTE | 2023-12-05 15:42 | PTCARENOTE ---
Pt arrived from [facility] around 1535. Pt was a stand and pivot to the bed, no complaints of dizziness. Pt is alert and oriented x3. Denies any pain. Tele monitor placed on patient. VSS. Pt is currently resting in bed. Call lora is within reach.
--- NOTE | 2023-12-05 16:38 | W.PN.GI.CBS2 ---
Addendum entered and electronically signed by Eugenia Martin MD 12/05/23 17:46:
I saw and examined the patient.
The AUTOMOBILE RADIATOR MECHANIC's note was reviewed and I agree with the note.
Comment: No abdominal pain. LFTs still elevated but only slightly higher than yesterday. DF is still low. Advised strict alcohol abstinence. okay for DC home with repeat LFTs on Saturday and again 1 week after discharge to follow-up in the GI
office and he already has an appointment made for 12/25. His hepatitis serologies,ROMELIA, AMA and ASMA are pending. If his repeat LFTs from next week are also still elevated will need other labs. Will also schedule for FibroScan as outpatient.
Original Note:
Today's Communication / Plan
-
Okay for discharge from GI standpoint. Repeat labs on Saturday, prescription provided. Follow-up in the GI office in 2 to 3 weeks, office visit 12/25 @ 11:30am. He should abstain from alcohol.
Assessment / Plan
-
The pt is a 38 yo male with a PMH significant for HTN, alcohol abuse, prior episode of pancreatitis, alcoholic hepatitis, LA grade D esophagitis on PPI, who initially presented to the ER with complaints of nausea and vomiting on 11/30. He presented
with symptoms of alcohol withdrawal after stopping alcohol use. Upon CT imaging he was found to have findings consistent with a very mild pancreatitis with no complications. His LFTs were elevated on admission with normalization of his bilirubin
and alkaline phosphatase, but up-trending AST and ALT with unclear etiology. Ultrasound imaging was done which showed no acute findings. There have been no new medications. He denies history of hepatitis or IV drug use. AST in the 500s and ALT
in the 300s, possibly secondary to alcoholic hepatitis. On admission his INR was normal with a minimally elevated PT. he has been improved symptomatically from a pancreatitis perspective and is tolerating a low-fat diet.
Problem list:
-pancreatitis 2/2 alcohol use
-chronic ETOH abuse
-Abnormal LFT's, hepatocellular pattern
-mild hyponatremia
-family hx of celiac disease
-CT/US imaging showing hepatic steatosis
-hx GERD/LA grade D esophagitis
Recommendations:
-Etiology of rising LFT's possibly secondary to alcoholic induced liver injury v underlying autoimmune component v other. AST>ALT pattern consistent with alcohol.
---Imaging with no significant findings aside from hepatic steatosis.
-His LFTs seem to be plateauing although still elevated. He has no complaints of pain and imaging does not reveal any concern for stones. His LFTs are likely related to alcohol hepatitis.
-Discussed with Dr. Martin, okay for discharge today with close follow-up in the office outpatient. We have gotten him an office visit on December 25 at 11:30 AM with our physician or assistant Stella.
-He will repeat his liver enzymes along with CBC and INR on Saturday, and the prescription was provided to him.
-Will plan for further outpatient liver workup and FibroScan.
-Awaiting autoimmune labs and hepatitis serologies which can be reviewed at his follow-up unless abnormal we will call him with the results.
-He should avoid hepatotoxins
-I again reinforced alcohol cessation
-If he develops any recurrent abdominal pain or jaundice he should return to the hospital for further evaluation.
-I did send a [place] text to the hospitalist notifying him he is okay for discharge from GI standpoint with the above recommendations.
Discharge recommendations: Follow-up in the office in 2 to 3 weeks scheduled for December 25 at 11:30 AM. Repeat CBC, PT/INR, and LFTs on Friday 12/08. Abstain from alcohol completely. Avoid hepatotoxins. Follow-up on autoimmune labs and hepatitis
serologies. He will need FibroScan outpatient along with additional underlying liver lab workup pending the autoimmune hepatitis serologies.
Subjective
Subjective
Date of Service: December 05, 2023
The patient was seen and examined at the bedside. He has no complaints of pain. He is tolerating a low-fat diet. Noted with a mild increase in LFTs primarily AST and ALT otherwise normal bilirubin and alk phos. He is hopeful to go home today.
Objective
Data Reviewed
Laboratory Data:
Laboratory Results
12/02/23 05:38
12/05/23 05:10
Laboratory Results
PT 13.0 Sec (11.4-14.6) 12/04/23 14:43
INR 0.98 12/04/23 14:43
APTT 27.2 Sec (23.4-35.0) 12/01/23 17:24
Phosphorus 2.1 mg/dl (2.5-4.5) L 12/03/23 05:16
Magnesium 1.7 mg/dl (1.6-2.3) 12/03/23 05:16
Total Bilirubin 0.8 mg/dl (0.2-1.3) 12/05/23 05:10
AST 521 U/L (17-59) H* 12/05/23 05:10
ALT 456 U/L (0-50) H 12/05/23 05:10
Alkaline Phosphatase 82 U/L (38-126) 12/05/23 05:10
Lipase 580 U/L (23-300) H 12/02/23 05:38
Vital Signs and I&O:
Vital Signs
Temp Pulse Resp BP Pulse Ox
98.4 F 96 16 125/88 99
12/05/23 15:00 12/05/23 15:00 12/05/23 15:00 12/05/23 15:00 12/05/23 15:00
I&O
12/04/23 12/05/23 12/06/23
06:59 06:59 06:59
Intake Total 2359
Balance 2359
Physical Exam
Physical Exam
HEENT: Anicteric
Pulmonary: Clear
GI: Soft, Non Distended, Non Tender and Normal Bowel Sounds
Neuro: Non Focal
[2023-12-05 17:50] VITALS: BP 135/91
--- NOTE | 2023-12-05 18:47 | W.DCSUMMARY ---
Discharge Summary
Discharge Data
Date of Admission: 12/01/23
Date of Discharge: 12/05/23
-
Pending Results: No
Hospital Course
Discharging Physician : Dr Rad Glasgow
Disposition : Home
Primary care physician : Dr Mauro Abraham
Principal Discharge diagnosis :
Acute pancreatitis from alcohol use
Alcoholic hepatitis
Alcohol use disorder
Alcohol withdrawal
Chronic Discharge diagnosis :
History of recurrent pancreatitis
History of alcohol withdrawal
Gastroesophageal reflux disease
Hepatic steatosis
History of diverticulosis
Hospital Course :
Patient is a 38-year-old male with above-mentioned past medical history came to ER for having abdominal pain nausea and vomiting. Patient have history of alcohol abuse and was noted to be tremulous/anxious and concern of alcohol withdrawal at
admission. Patient was started on as needed Ativan protocol to help with the symptoms of withdrawal. CT abdomen pelvis was done this part of workup which was showing some edematous changes of pancreas and minimal lipase elevation of 540. Patient
was simultaneously diagnosed to having mild acute pancreatitis as well likely from alcohol use related. Right upper quadrant ultrasound was done which showed hepatic steatosis and no gallstones. Patient had improvement in symptoms of pancreatitis
and alcohol withdrawal in next 48 hours. Patient had a new elevation in LFT and GI was involved in care. Patient was diagnosed to have minor alcohol hepatitis and LFT was monitored. Low discriminant score and not a candidate for steroid therapy.
After improvement clinically patient was discharged home with follow-up LFT outpatient and GI office.
Important imaging findings :
None
Procedure findings :
None
Discharge Plan
-
Patient Disposition: Home (Routine Discharge)
Discharge Diagnosis/Procedures: Acute pancreatitis, acute trans-aminitis
Condition: Fair
Diet: Regular
Additional Diets: Avoid alcohol use
Activity: With assistance
Driving Restrictions: As prior to admission
Bathing Restrictions: OK to Shower
Blood Work: CMP in 1-2 week
Referrals:
Mauro Abraham MD [Family Provider] - in one week
Stella Soto PA-C [Specified Professional Personl] - 12/26/23 11:30 am (call if you cannot make this appt)
Prescriptions:
Continued
thiamine HCl (vitamin B1) 100 MG tablet
100 mg PO DAILY
multivitamin with folic acid [Tab-A-Bernie] 1 TABLET tablet
1 tab PO DAILY
folic acid 1 mg tablet
1 mg PO DAILY
pantoprazole [Protonix] 40 mg tablet,delayed release (DR/EC)
40 mg PO DAILYPRN PRN (Reason: gerd)
Discharge Orders:
Discharge Patient (As Directed); Ordered 12/05/23
Ordered By: Rad Glasgow
Discharge Date and Time
Discharge Date/Time: 12/05/23 18:05
Print Language: CONGOLESE
[2023-12-05 20:30] LABS: Hepatitis B Surface Antibody Positive
[2023-12-05 21:13] LABS: Hepatitis B Surface Antigen Negative (Negative)
[2023-12-05 21:31] LABS: Hepatitis B Core Ab, Total Negative (Negative); Hepatitis C Antibody Negative (Negative)
[2023-12-05 22:13] LABS: Hepatitis A Antibody, Total Negative (Negative)
[2023-12-07 02:45] LABS: F-Actin Antibody IgG 9 Units (0-19); Mitochondrial M2 Ab, IgG 16.3 Units (0.0-24.9)
[2023-12-07 03:02] LABS: ANA, IgG Reflex to HEp-2 Detected (None Detected)
[2023-12-09 08:34] LABS: ANA, HEp-2, IgG <1:80 (<1:80)
== END 2023-12-05 18:05 | disposition home or self-care (01) | DRG 439 ==
LOC: 3 WEST ACU 16:04
PROVIDERS: Nurse Practitioner Family; Physician Assistant; ADMITTING PHYSICIAN Internal Medicine; ATTENDING PHYSICIAN Hospitalist; CONSULT PHYSICIAN Internal Medicine Gastroenterology; EMERGENCY PHYSICIAN Student in an Organized Health Care Education/Training Program; FAMILY PHYSICIAN Family Medicine
DX: K85.90 Acute pancreatitis without necrosis or infection, unspecified (principal); E87.1 Hypo-osmolality and hyponatremia; F10.239 Alcohol dependence with withdrawal, unspecified; F17.200 Nicotine dependence, unspecified, uncomplicated; K21.00 Gastro-esophageal reflux disease with esophagitis, without bleeding; K76.0 Fatty (change of) liver, not elsewhere classified; K57.30 Diverticulosis of large intestine without perforation or abscess without bleeding; K70.10 Alcoholic hepatitis without ascites
CPT/HCPCS: 74177; 76700; 80053; 80143; 80306; 80307; 81003; 82077; 82805; 83690; 83735; 84100; 85025; 85027; 85610; 85730; 86015; 86038; 86039; 86381; 86704; 86706; 86708; 86709; 86803; 87340; 93005; 96361; 96374; 96375; 99285; Q9967

== ENCOUNTER 2024-01-18 19:10 | Emergency (ER) | payer OTHER, SELFPAY ==
[2024-01-18 19:14] VITALS: BP 156/110
[2024-01-18 19:29] LABS: % Basophils 0.3 % (0-2); % Immature Granulocytes 0.4 % (0-0.5); % Lymphocytes 5.5 % (20.5-51.1); % Monocytes 5.7 % (1.7-9.3); % Neutrophils 88.1 % (42.2-75.2); Absolute Lymphocytes 0.6 10^3/uL (1.2-3.4); Absolute Monocytes 0.6 10^3/uL (0.1-0.6); Absolute Neutrophils 9.4 10^3/uL (1.4-6.5); Hematocrit 46.1 % (39.0-52.0); Hemoglobin 16.4 g/dL (13.0-18.0); Mean Corp Hgb Conc. 35.6 g/dL (33.0-37.0); Mean Corpuscular Hgb 32.3 pg (27.0-31.0); Mean Corpuscular Volume 90.9 fL (80.0-94.0); Mean Platelet Volume 9.5 fL (7.4-10.4); Nucleated Red Blood Cells % 0 % (-); Platelet Count 304 10^3/uL (130-400); Red Blood Cell Count 5.07 10^6/uL (4.70-6.10); Red Cell Dist. Width 12.4 % (11.5-14.5); White Blood Cell Count 10.6 10^3/uL (4.8-10.8)
[2024-01-18 20:17] LABS: ALT (SGPT) 43 U/L (0-50); AST (SGOT) 68 U/L (17-59); Albumin 5.8 g/dl (3.5-5.0); Alkaline Phosphatase 123 U/L (38-126); Blood Urea Nitrogen 17 mg/dl (9-20); Calcium 10.6 mg/dl (8.4-10.2); Carbon Dioxide 16 mmol/L (22-30); Chloride 87 mmol/L (98-107); Glucose 124 mg/dl (70-99); Potassium 4.4 mmol/L (3.5-5.1); Sodium 134 mmol/L (135-145); Total Bilirubin 2.1 mg/dl (0.2-1.3); Total Protein 9.3 g/dl (6.3-8.2); eGFR > 60.00
[2024-01-18 20:26] LABS: Lipase 112 U/L (23-300)
[2024-01-18 20:28] LABS: Alcohol None Detected
[2024-01-18] MEDS: ATIVAN 1 MG IV (20:42)
[2024-01-18 21:16] LABS: Creatine Phosphokinase 228 U/L (55-170)
[2024-01-18] MEDS: MULTIVITAMIN 1011 ML IV (21:18)
[2024-01-18] MEDS: MULTIVITAMIN 1011 MG IV (21:18)
--- NOTE | 2024-01-18 21:40 | ED.GENMED ---
History of Present Illness
General
Chief Complaint: Abdominal Symptoms
Source: patient and family
Exam Limitations: none
Time Seen by Provider: 01/18/24 20:31
Nursing documentation reviewed up to this point in time: agreed with
History of Present Illness
History of Present Illness:
38-year-old male presents with symptoms of alcohol withdrawal and dehydration. Patient is an admitted alcoholic who states that he was clean for a while but started drinking again 3 weeks ago. He drinks half a pint of whiskey per day. His last
drink was yesterday. Patient was on vacation in [place] and started to feel heat related symptoms while there. He tried consuming more water but still feels shakiness and dehydration. Denies chest pain or shortness of breath. Reports no
headache. He does report upper abdominal pain and has a history of pancreatitis.
Vital signs are stable. Patient not hypoxic
Nursing note reviewed. I agree with nursing documentation up to this point in time.
Home Meds and allergies reviewed.
NUMBER AND COMPLEXITY OF PROBLEMS ADDRESSED AT THE ENCOUNTER
� Chronic conditions affecting care: Alcoholism
� Acute Exacerbation and/or Progression of Chronic Illness: Alcoholism
� Differential Diagnosis includes: Dehydration, alcohol withdrawal
AMOUNT AND/OR COMPLEXITY OF DATA TO BE REVIEWED AND ANALYZED
I performed an independent evaluation of the following and my interpretation is:
EKG:
CT:
X-rays:
Ultrasound:
Laboratory Studies: Lipase is 112. T. bili is 2.1. AST is 68. CK is 228.
Other:
Review of other/old records:
Clinical information was obtained by an independent historian:
Prescriptions/Medications Considered but not given:
Further testing considered but not performed:
RISK OF COMPLICATIONS AND/OR MORBIDITY OR MORTALITY OF PATIENT MANAGEMENT
Social determinants of health affecting care: Good Social Support
Discussion with other providers: Patient spoke with the cares. Patient refused all help. He wishes to be discharged to home.
Escalation of care including admission/observation vs risk of discharge considered: Patient does not wish to have help with his alcohol issue
CRITICAL CARE NOTE:
Total Time (exclusive of procedures):
Update:
Past History
Past History
ED Past Medical History: Other (Alcohol abuse)
ED Past Surgical History: None
Social History
Tobacco: Smoker
Alcohol: Chronic alcoholic
Drug: None
Personal: Single
Living: with family
Employment: Employed
Family History
Family History: Other (Noncontributory)
Phy Exam
Physical Exam
Physical Exam:
Physical Exam
Vital signs and allergy list reviewed and agreed with.
GENERAL: Alert , in minimal apparent distress
EYE: pupils equal, EOMI, anicteric
NECK: Supple, no significant adenopathy. No masses. Trachea midline
ENT: Oropharynx is clear, mmm.
CARDIAC: Regular rate and rhythm . No M/R/G
LUNGS: Clear breath sounds bilaterally, no acute respiratory distress, no wheezes/rales/rhonchi
ABDOMEN: Soft, without focal tenderness, no r/g, no cvat. Normal BSx4q
NEUROLOGICAL: Alert and oriented, no focal neuro deficits
SKIN: Warm and dry, skin intact.
MUSCULOSKELETAL: No edema, well perfused. Moves all 4 extremities
PSYCH: Normal and appropriate interaction.
Course
Orders/Labs/Results
Orders:
Orders
01/18/24 19:19
ECG [Electrocardiogram (*1)] Urgent
Reason for Study: Abdominal Pain
Cardiology Consult: Unknown
01/18/24 19:20
EKG- Treatment ONCE
01/18/24 19:21
Alcohol Urgent
Complete Blood Count/With Diff Urgent
Comprehensive Metabolic Panel Urgent
Creatine Phosphokinase Urgent
Lipase Urgent
01/18/24 20:39
Lorazepam [Ativan] 1 mg IV NOW STA
01/18/24 20:40
Add On- LAB Urgent
Tests Added?: cpk
01/18/24 21:00
0.9% Sodium Chloride 1000 ml [Nss] 1,000 ml Mvi, Adult [Multivitamin] 10 ml Thiamine Injection 100 mg IV 250 mls/hr
01/18/24 21:42
Pantoprazole [Protonix IV] 80 mg IV NOW STA
Sucralfate Suspension [Carafate Suspension] 1 gm PO NOW STA
Abnormal Lab Results
01/18/24
19:21
MCH 32.3 H pg
(27.0-31.0)
Absolute Neuts (auto) 9.4 H 10^3/uL
(1.4-6.5)
Absolute Lymphs (auto) 0.6 L 10^3/uL
(1.2-3.4)
Neutrophils % 88.1 H %
(42.2-75.2)
Lymphocytes % 5.5 L %
(20.5-51.1)
Sodium 134 L mmol/L
(135-145)
Chloride 87 L mmol/L
(98-107)
Carbon Dioxide 16 L mmol/L
(22-30)
Glucose 124 H mg/dl
(70-99)
Calcium 10.6 H mg/dl
(8.4-10.2)
Total Bilirubin 2.1 H mg/dl
(0.2-1.3)
AST 68 H U/L
(17-59)
Creatine Kinase 228 H U/L
(55-170)
Total Protein 9.3 H g/dl
(6.3-8.2)
Albumin 5.8 H g/dl
(3.5-5.0)
01/18/24 19:21
01/18/24 19:21
Vital Signs
Initial and Last Documented VS:
Initial Vital Signs
Temp Pulse Resp BP Pulse Ox
98.1 F 85 20 156/110 98
01/18/24 19:14 01/18/24 19:14 01/18/24 19:14 01/18/24 19:14 01/18/24 19:14
Last Documented Vital Signs
Temp Pulse Resp BP Pulse Ox
98.1 F 86 20 143/80 100
01/18/24 19:14 01/19/24 00:50 01/18/24 19:14 01/19/24 00:50 01/19/24 00:50
*Critical Care Note
Total Time (30-74mins, 75-104mins- exclusive of procedures): Not Applicable
ED Attending Note
-
Portions of this chart may have been created with voice recognition software.� Occasional wrong word or��sound alike� substitutions may have occurred due to the inherent limitations of voice recognition software.
Discharge Plan
Departure
Patient Disposition: Home (Routine Discharge)
Date of Disposition: 01/19/24
Time of Disposition: 01:29
Patient with high blood pressure during this ER visit?: Yes
Discharge Problem:
Acute dehydration, Alcohol use disorder
Instructions: Dehydration, Adult (DC), Alcohol Use Disorder (DC), BLOOD PRESSURE
Prescriptions:
New
lorazepam [Ativan] 0.5 mg tablet
0.5 mg PO BID PRN (Reason: alcohol withdrawal) Qty: 10 0RF
No Action
thiamine HCl (vitamin B1) 100 MG tablet
100 mg PO DAILY
multivitamin with folic acid [Tab-A-Bernie] 1 TABLET tablet
1 tab PO DAILY
folic acid 1 mg tablet
1 mg PO DAILY
pantoprazole [Protonix] 40 mg tablet,delayed release (DR/EC)
40 mg PO DAILYPRN PRN (Reason: gerd)
Referrals:
Mauro Abraham MD [Family Provider] -
Activity Restrictions/Additional Instructions:
[facility] cares will follow-up with you tomorrow.
It was a pleasure meeting you and taking part in your care. We hope for your continued healing and wellness.
Please read discharge instructions in their entirety. However, they are for general education and may not describe your exact diagnosis at discharge. Information on your ER visit and medical conditions were discussed with you along with appropriate
follow up information...
If indicated, please take your medications as instructed and indicated on discharge paperwork.
Please schedule a follow up appointment as directed. Call to schedule an appointment
Please return to the emergency department with ANY change in, persisting, or worsening of symptoms. If any of your symptoms do not improve, or persist, or become more severe within 6-12 hours, please return to the emergency department for further
care.
Please return to the emergency department if you develop a headache, neck pain/stiffness, fever greater than 100.4F, chest pain, shortness of breath, persistent nausea, vomiting, slurred speech, difficulty walking, numbness/tingling, weakness, signs
of infection or any other symptoms that are worrisome to you.
If you have any questions or concerns please do not hesitate to call the Hospital at or E-mail me directly at [email or web address]
Interventions
Interventions:
*Risk Screen - Suicide Last Done: 01/18/24 19:14
*General Assessment Last Done: 01/18/24 19:14
*Neglect/Abuse Screening Last Done: 01/18/24 19:14
ED- Fall Risk Assessment Last Done: 01/18/24 19:14
*ED COVID-19 Vaccine History Last Done: 01/18/24 19:14
*Nursing Disposition Last Done: 01/19/24 02:07
VS-Allzot-Qvmwrxrybj Assessment Last Done: 01/18/24 21:46
ED- Neurological Assessment Last Done: 01/18/24 21:46
ED-Psychological Assessment Last Done: 01/18/24 21:46
Discharge Date and Time
Discharge Date/Time: 01/19/24 02:07
Print Language: SCOTTISH
[2024-01-18] MEDS: PROTONIX IV 80 MG IV (22:02)
[2024-01-18] MEDS: CARAFATE SUSPENSION 1 GM PO (22:02)
[2024-01-19 00:50] VITALS: BP 143/80
== END 2024-01-19 02:07 | disposition home or self-care (01) ==
LOC: EMR 19:10
PROVIDERS: Student in an Organized Health Care Education/Training Program; EMERGENCY PHYSICIAN Student in an Organized Health Care Education/Training Program; FAMILY PHYSICIAN Family Medicine
DX: R10.10 Upper abdominal pain, unspecified (principal); E86.0 Dehydration; F10.20 Alcohol dependence, uncomplicated; R03.0 Elevated blood-pressure reading, without diagnosis of hypertension; F17.200 Nicotine dependence, unspecified, uncomplicated; F41.9 Anxiety disorder, unspecified; Z86.16 Personal history of COVID-19; Z87.19 Personal history of other diseases of the digestive system
CPT/HCPCS: 99284; 96365; 96366 ×2; 96375 ×2; 80053; 82077; 82550; 83690; 85025; 93005

== ENCOUNTER 2024-02-11 19:07 | Inpatient (IN) | payer OTHER, SELFPAY ==
[2024-02-11] VITALS (11 sets, daily range): BP systolic 116–163; BP diastolic 75–108; BMI 20.7
[2024-02-11 13:00] LABS: % Basophils 0.3 % (0-2); % Immature Granulocytes 0.7 % (0-0.5); % Lymphocytes 4.7 % (20.5-51.1); % Monocytes 6.9 % (1.7-9.3); % Neutrophils 87.4 % (42.2-75.2); Absolute Immature Granulocytes 0.1 10^3/uL (0-0.05); Absolute Lymphocytes 0.7 10^3/uL (1.2-3.4); Absolute Neutrophils 12.5 10^3/uL (1.4-6.5); Hematocrit 51.4 % (39.0-52.0); Hemoglobin 17.4 g/dL (13.0-18.0); Mean Corp Hgb Conc. 33.9 g/dL (33.0-37.0); Mean Corpuscular Hgb 32.3 pg (27.0-31.0); Mean Corpuscular Volume 95.5 fL (80.0-94.0); Mean Platelet Volume 9.8 fL (7.4-10.4); Nucleated Red Blood Cells % 0 % (-); Platelet Count 314 10^3/uL (130-400); Red Blood Cell Count 5.38 10^6/uL (4.70-6.10); Red Cell Dist. Width 13.4 % (11.5-14.5); White Blood Cell Count 14.4 10^3/uL (4.8-10.8)
--- NOTE | 2024-02-11 13:11 | ED.GENMED ---
History of Present Illness
General
Chief Complaint: Abdominal Symptoms
Time Seen by Provider: 02/11/24 12:34
History of Present Illness
History of Present Illness:
38-year-old male with history of alcohol abuse presenting to the emergency department for nausea, vomiting, abdominal discomfort. Patient reports 3 days ago he was in the sun and felt like he was starting to get dehydrated. The following day, he
started to have nausea and vomiting and has since been unable to tolerate p.o. He also reports that he has been drinking half a pint of whiskey a day with last ingestion 6 PM yesterday. He reports some generalized abdominal cramping. He has been
having chills without fever. Denies chest pain or difficulty breathing. Denies any drug abuse. Reports that this has happened to him in the past, requiring IV fluids and sometimes hospitalization. Denies additional acute complaints
Past History
Past History
ED Past Medical History: Other (Alcohol abuse)
ED Past Surgical History: None
Social History
Tobacco: Smoker
Alcohol: Chronic alcoholic
Drug: None
Personal: Single
Living: with family
Employment: Employed
Family History
Family History: Other (Noncontributory)
Phy Exam
Physical Exam
Physical Exam:
General: Well-appearing, no clinical signs of dehydration, nontoxic and in no acute distress
HEENT: protecting airway
Neck: appears supple
CV: Tachycardic, regular rhythm, no evidence of cyanosis
Resp: No accessory muscle use, no increased work of breathing, lungs clear to auscultation bilaterally
Abd: Soft and non-distended, no tenderness to palpation, normal bowel sounds
Extremities: No deformities, no swelling, no erythema, pulses and sensation intact
Neuro: alert, no focal neurologic deficit
: deferred
Rectal: deferred
Psych: Normal affect
Skin: Intact
Course
Orders/Labs/Results
Orders:
Orders
02/11/24 12:46
Alcohol Urgent
CBC/With Diff [Complete Blood Count/With Diff] Urgent
CMP [Comprehensive Metabolic Panel] Urgent
Lipase Urgent
02/11/24 12:57
Add On- LAB Urgent
Tests Added?: lipase
0.9% Sodium Chloride 1000 ml [Nss] 1,000 ml IV BOLUS
Lorazepam [Ativan] 1 mg IV NOW STA
Ondansetron Injectable [Zofran] 4 mg IV NOW STA
Thiamine Injection 100 mg IM NOW STA
02/11/24 13:07
Thiamine Injection 100 mg IV NOW STA
02/11/24 15:39
0.9% Sodium Chloride 1000 ml [Nss] 1,000 ml IV BOLUS
Ondansetron Injectable [Zofran] 4 mg IV NOW STA
Abnormal Lab Results
02/11/24
12:46
WBC 14.4 H 10^3/uL
(4.8-10.8)
MCV 95.5 H fL
(80.0-94.0)
MCH 32.3 H pg
(27.0-31.0)
Abs Immat Gran (auto) 0.1 H 10^3/uL
(0-0.05)
Absolute Neuts (auto) 12.5 H 10^3/uL
(1.4-6.5)
Absolute Lymphs (auto) 0.7 L 10^3/uL
(1.2-3.4)
Absolute Monos (auto) 1.0 H 10^3/uL
(0.1-0.6)
Immature Gran % 0.7 H %
(0-0.5)
Neutrophils % 87.4 H %
(42.2-75.2)
Lymphocytes % 4.7 L %
(20.5-51.1)
Potassium 5.3 H mmol/L
(3.5-5.1)
Chloride 95 L mmol/L
(98-107)
Carbon Dioxide 6 L* mmol/L
(22-30)
Glucose 232 H mg/dl
(70-99)
Total Bilirubin 1.5 H mg/dl
(0.2-1.3)
AST 75 H U/L
(17-59)
ALT 63 H U/L
(0-50)
Alkaline Phosphatase 181 H U/L
(38-126)
Total Protein 9.5 H g/dl
(6.3-8.2)
Albumin 5.8 H g/dl
(3.5-5.0)
02/11/24 12:46
02/11/24 12:46
Vital Signs
Initial and Last Documented VS:
Initial Vital Signs
Temp Pulse Resp BP Pulse Ox
97 F 125 22 163/108 99
02/11/24 12:21 02/11/24 12:21 02/11/24 12:21 02/11/24 12:21 02/11/24 12:21
Last Documented Vital Signs
Temp Pulse Resp BP Pulse Ox
97 F 107 16 129/82 100
02/11/24 12:21 02/11/24 17:15 02/11/24 17:15 02/11/24 17:00 02/11/24 17:15
MDM/Problems Addressed
MDM/Problems Addressed:
38-year-old male with history of alcohol abuse presenting for nausea, vomiting, inability to tolerate p.o. Vital signs and arrival significant for tachycardia.
On exam, patient is resting comfortably, no acute distress. Slight dryness to mucous membranes. Benign cardiac and pulmonary exam with the exception of mild tachycardia. No reproducible tenderness to abdomen. Suspect source of symptoms and
secondary to alcohol abuse, possible mild withdrawal, dehydration. Patient notes that he has had electrolyte abnormality in the past. Will screen with laboratory analysis and treat with IV fluids. Patient requesting thiamine, Ativan, Zofran.
Will administer.
15:45 -Labs relatively unremarkable with normal lipase. On reassessment, still reporting some nausea after fluids. Requesting another bag. Will administer as well as another dose of Zofran and reassess
18:00 -patient unable to tolerate p.o. after multiple rounds of antiemetics. For this reason we will admit for intractable vomiting. Patient agreeable plan, requesting banana bag
*Critical Care Note
Total Time (30-74mins, 75-104mins- exclusive of procedures): Not Applicable
ED Attending Note
-
Portions of this chart may have been created with voice recognition software.� Occasional wrong word or��sound alike� substitutions may have occurred due to the inherent limitations of voice recognition software.
Discharge Plan
Departure
Prescriptions:
No Action
multivitamin with folic acid [Tab-A-Bernie] 1 TABLET tablet
1 tab PO DAILY
pantoprazole [Protonix] 40 mg tablet,delayed release (DR/EC)
40 mg PO DAILYPRN PRN (Reason: gerd)
milk thistle 175 mg Tablet
175 mg PO DAILY
cyanocobalamin (vitamin B-12) 1,000 mcg Tablet
1,000 mcg PO DAILY
potassium 99 mg Tablet
99 mg PO DAILY
ascorbic acid (vitamin C) [Vitamin C] 500 mg Tablet
500 mg PO DAILY
ibuprofen [Advil] 200 mg Tablet
400 mg PO Q8HPRN PRN (Reason: mild pain)
folic acid 1 mg Tablet
1 mg PO DAILY
cholecalciferol (vitamin D3) [Vitamin D3] 25 mcg (1,000 unit) Tablet
25 mcg PO DAILY
magnesium oxide 400 mg magnesium Tablet
400 mg PO DAILY
turmeric 400 mg Capsule
400 mg PO DAILY
Referrals:
Mauro Abraham MD [Family Provider] -
Interventions
Interventions:
*Risk Screen - Suicide Last Done: 02/11/24 12:21
*General Assessment Last Done: 02/11/24 12:21
*Neglect/Abuse Screening Last Done: 02/11/24 12:21
*ED COVID-19 Vaccine History Last Done: 02/11/24 15:19
FN-Xpuqzg-Gcwktroact Assessment Last Done: 02/11/24 13:01
Discharge Date and Time
Print Language: ROMANSH
[2024-02-11] MEDS: NSS 1000 IV ×2 (13:20→15:45)
[2024-02-11 13:21] LABS: AST (SGOT) 75 U/L (17-59); Albumin 5.8 g/dl (3.5-5.0); Alkaline Phosphatase 181 U/L (38-126); Blood Urea Nitrogen 12 mg/dl (9-20); Carbon Dioxide 6 mmol/L (22-30); Chloride 95 mmol/L (98-107); Glucose 232 mg/dl (70-99); Potassium 5.3 mmol/L (3.5-5.1); Sodium 136 mmol/L (135-145); Total Bilirubin 1.5 mg/dl (0.2-1.3); Total Protein 9.5 g/dl (6.3-8.2); eGFR > 60.00
[2024-02-11] MEDS: ZOFRAN 4 MG IV ×3 (13:21→20:41)
[2024-02-11] MEDS: THIAMINE INJECTION 100 MG IV (13:22)
[2024-02-11] MEDS: ATIVAN 1 MG IV ×2 (13:24→21:07)
[2024-02-11 14:41] LABS: ALT (SGPT) 63 U/L (0-50); Alcohol None Detected; Lipase 114 U/L (23-300)
--- NOTE | 2024-02-11 18:33 | HPS.HSE ---
Family Physician
-
Family Physician: Mauro Abraham
Chief Complaint
-
alcohol withdrawal
History of Present Illness
38-year-old male past medical history of alcohol use disorder, alcoholic hepatitis, recurrent alcoholic pancreatitis, GERD, diverticulosis presenting with nausea and vomiting and abdominal discomfort. 3 days ago he was in the sun and felt like he
was dehydrated. The next day he was having nausea and vomiting and since has been unable to tolerate p.o. He has been drinking half a pint of whiskey per day last ingestion at 6 PM yesterday. He has some generalized abdominal cramping. He has
chills and sweating without fever. He has tremors and anxiety. Denies any chest pain or shortness of breath.
He is having intermittent abdominal pain/cramping focus in the epigastric region with radiation up to the throat.
Uses marijuana occasionally. He stopped smoking nicotine 6 months ago.
Medical History
Past Medical History
Past Medical History: Reports Other ( alcohol use disorder, alcoholic hepatitis, recurrent alcoholic pancreatitis, GERD, diverticulosis)
Past Surgical History: Reports None
Social History
Tobacco: Former Smoker
Alcohol: Daily
Drug: Marijuana
Family History
Family History: Not pertinent
Allergies / Home Medications
Allergies reflects when Allergies were last updated in [employer].
Home Medications with original date entered in [employer]
Allergy/Medication List:
Allergies
Allergy/AdvReac Type Severity Reaction Status Date / Time
Sulfa (Sulfonamide Allergy Rash Verified 02/11/24 12:21
Antibiotics)
Home Medications
multivitamin with folic acid 400 mcg tablet (Tab-A-Bernie) 1 tab PO DAILY Supplement 10/03/21
pantoprazole 40 mg tablet,delayed release (Protonix) 40 mg PO DAILYPRN PRN gerd 12/01/23
ascorbic acid (vitamin C) 500 mg tablet (Vitamin C) 500 mg PO DAILY 02/11/24
cholecalciferol (vitamin D3) 25 mcg (1,000 unit) tablet (Vitamin D3) 25 mcg PO DAILY 02/11/24
cyanocobalamin (vitamin B-12) 1,000 mcg tablet 1,000 mcg PO DAILY 02/11/24
folic acid 1 mg tablet 1 mg PO DAILY 02/11/24
ibuprofen 200 mg tablet (Advil) 400 mg PO Q8HPRN PRN mild pain 02/11/24
magnesium oxide 400 mg PO DAILY 02/11/24
milk thistle 175 mg tablet 175 mg PO DAILY 02/11/24
potassium 99 mg tablet 99 mg PO DAILY 02/11/24
turmeric 400 mg capsule 400 mg PO DAILY 02/11/24
Review of Systems
-
History Source: Patient
A 12 point ROS was completed and negative except as noted: Yes
Constitutional: Reports No Symptoms
EENT: Reports No Symptoms
Respiratory: Reports No Symptoms
Cardiac: Reports No Symptoms
Abdomen/GI: Reports See HPI
: Reports No Symptoms
Musculoskeletal: Reports No Symptoms
Skin: Reports No Symptoms
Neurological: Reports No Symptoms
Endocrine: Reports No Symptoms
Hematologic/Lymphatic: Reports No Symptoms
Psych: Reports No Symptoms
Physical Exam
Vital Signs
Vital Signs
Temp Pulse Resp BP Pulse Ox
97 F 107 16 129/82 100
02/11/24 12:21 02/11/24 17:15 02/11/24 17:15 02/11/24 17:00 02/11/24 17:15
Physical Exam
General: Well Developed, Well Nourished and No Apparent Distress
HEENT: NormoCephalic, Moist mucous membranes and Atraumatic
Respiratory: Clear
Cardiac: S1/S2 and Regular Rhythm; No Murmur or Rub
GI: Soft, Non Distended, Normal Bowel Sounds and Tender (diffusely ); No Organomegaly
Rectal: Deferred by Provider
Musculoskeletal: No Clubbing, No Cyanosis and No Edema
Skin: No Rash
Neuro: Nonfocal/grossly intact
Laboratory Results
-
02/11/24 12:46
02/11/24 12:46
Laboratory Results
Total Bilirubin 1.5 mg/dl (0.2-1.3) H 02/11/24 12:46
AST 75 U/L (17-59) H 02/11/24 12:46
ALT 63 U/L (0-50) H 02/11/24 12:46
Alkaline Phosphatase 181 U/L (38-126) H 02/11/24 12:46
Lipase 114 U/L (23-300) 02/11/24 12:46
Data Reviewed
-
Lab Data: Labs Reviewed by me
Old Records: Reviewed
Impression/Plan
-
IMPRESSION:
PLAN:
# Alcohol withdrawal exacerbated by dehydration
-banana bag +NS fluids
-Thiamine and folate
-Alcohol withdrawal protocol
-Zofran
-N.p.o., advance diet as tolerated
# Anion gap metabolic acidosis secondary to alcoholic ketoacidosis
-IV fluids with normal saline since blood sugar elevated
# Hyperkalemia secondary to potassium supplementation/hypovolemia
-Hold potassium supplement
# Abdominal pain likely alcoholic gastritis
-Lipase 100
-Continue Protonix daily
-Hold ibuprofen
# Transaminitis secondary to alcohol use
-Continue to monitor
Full code
DVT prophylaxis�heparin
N.p.o.
[2024-02-11] MEDS: MULTIVITAMIN 1011 ML IV (19:02)
[2024-02-11] MEDS: MULTIVITAMIN 1011 MG IV (19:02)
[2024-02-11] MEDS: NSS (PRESERVATIVE FREE) 0.5 ML IV (21:07)
[2024-02-11] MEDS: TUMS 1 TABLET PO (22:16)
[2024-02-11] MEDS: HEPARIN 5000 UNITS SC (22:17)
[2024-02-12] MEDS: ATIVAN 1 MG PO (01:13)
[2024-02-12] MEDS: NSS 1000 IV ×3 (02:05→23:53)
[2024-02-12] MEDS: MULTIVITAMIN 1011 MG IV (02:05)
[2024-02-12] MEDS: MULTIVITAMIN 1011 ML IV (02:05)
[2024-02-12 03:02] VITALS: BP 122/77
[2024-02-12 07:00] VITALS: BP 122/75
[2024-02-12] MEDS: VITAMIN B-12 1000 MCG PO (07:49)
[2024-02-12] MEDS: FOLVITE 1 MG PO (07:49)
[2024-02-12] MEDS: THERAGRAN 1 TABLET PO (07:49)
[2024-02-12] MEDS: VITAMIN C 500 MG PO (07:50)
[2024-02-12] MEDS: HEPARIN 5000 UNITS SC ×2 (07:50→20:20)
[2024-02-12] MEDS: VITAMIN D3 (cholecalciferol) 25 MCG PO (07:50)
[2024-02-12] MEDS: MAG-TAB SR 84 MG PO (07:50)
[2024-02-12 09:31] LABS: % Basophils 0.1 % (0-2); % Immature Granulocytes 0.4 % (0-0.5); % Monocytes 13.6 % (1.7-9.3); % Neutrophils 69.9 % (42.2-75.2); Absolute Lymphocytes 1.3 10^3/uL (1.2-3.4); Absolute Monocytes 1.1 10^3/uL (0.1-0.6); Absolute Neutrophils 5.6 10^3/uL (1.4-6.5); Mean Corpuscular Hgb 33.6 pg (27.0-31.0); Mean Corpuscular Volume 95.9 fL (80.0-94.0); Mean Platelet Volume 9.8 fL (7.4-10.4); Nucleated Red Blood Cells % 0 % (-); Platelet Count 207 10^3/uL (130-400); Red Blood Cell Count 4.17 10^6/uL (4.70-6.10); Red Cell Dist. Width 13.2 % (11.5-14.5)
[2024-02-12 10:19] LABS: ALT (SGPT) 35 U/L (0-50); AST (SGOT) 42 U/L (17-59); Albumin 3.9 g/dl (3.5-5.0); Alkaline Phosphatase 115 U/L (38-126); Blood Urea Nitrogen 10 mg/dl (9-20); Calcium 8.7 mg/dl (8.4-10.2); Carbon Dioxide 17 mmol/L (22-30); Chloride 105 mmol/L (98-107); Estimated Creatinine Clearance 99 ml/min; Glucose 63 mg/dl (70-99); Sodium 133 mmol/L (135-145); Total Bilirubin 1.2 mg/dl (0.2-1.3); Total Protein 6.5 g/dl (6.3-8.2); eGFR > 60.00
[2024-02-12 11:00] VITALS: BP 131/87
[2024-02-12] MEDS: ZOFRAN 4 MG IV (11:26)
[2024-02-12 15:00] VITALS: BP 138/90
[2024-02-12] MEDS: NSS (PRESERVATIVE FREE) 10 ML IV (15:11)
[2024-02-12] MEDS: PROTONIX IV 40 MG IV (15:11)
[2024-02-12] MEDS: LUMINAL 97.2 MG PO ×2 (15:15→22:29)
[2024-02-12 16:50] LABS: TSH 0.28 uIU/ml (0.47-4.68)
--- NOTE | 2024-02-12 17:38 | W.PN.HOSP.TC ---
Today's Communication/Plan
-
Continue DVT management
Continue IV fluids for severe metabolic acidosis.
Assessment / Plan
Assessment / Plan
Impression:
Alcohol withdrawal with risk for delirium tremens.
Severe dehydration.
Alcoholic ketoacidosis
Hyperkalemia
Alcoholic hepatitis
Abdominal pain suspect alcoholic gastritis
Plan:
Alcohol withdrawal with risk for delirium tremens.
Awake with no tremors or distress.
Patient does have severe alcohol use disorder with multiple rehospitalizations, as well as history of inpatient treatment.
Continue MSAS with lorazepam.
Add oral phenobarbital taper starting at 97 mg p.o. 3 times daily
Continue thiamine
Social work consultation for disposition. Currently patient would not consider inpatient option.
Evaded LFTs secondary to alcoholic hepatitis
Normal lipase.
Trending down.
Continue to follow
Severe increased anion gap metabolic acidosis/alcoholic ketoacidosis.
Hyperkalemia secondary to above and dehydration.
Improving with IV fluids
Continue normotonic solution
Hold potassium supplements
Follow BMP
Epigastric pain.
Lipase normal.
Suspect alcoholic gastritis.
Hold and avoid NSAIDs.
Start PPI
Patient reports family history of thyroid disease.
TSH slightly suppressed, possibly euthyroid sick syndrome in acute settings
Will check free T4
Anticipated Discharge: > 48 hours
Subjective/Interval History
-
Date of Service: February 12, 2024
Objective Data
-
Labs:
Laboratory Results
02/12/24
07:24
WBC 8.0
Hgb 14.0
Hct 40.0
Plt Count 207 D
Sodium 133 L
Potassium 4.0
Chloride 105
Carbon Dioxide 17 L
BUN 10
Creatinine 0.9
Glucose 63 L
Calcium 8.7
Total Bilirubin 1.2
AST 42
ALT 35
Alkaline Phosphatase 115
Vital Signs:
Vital Signs
Temp Pulse Resp BP Pulse Ox
98.6 F 90 18 138/90 97
02/12/24 15:00 02/12/24 15:00 02/12/24 15:00 02/12/24 15:00 02/12/24 15:00
I&O
02/11/24 02/12/24 02/13/24
06:59 06:59 06:59
Intake Total 1500 / 1500
Balance 1500 / 1500
Physical Exam
-
General: Well Developed and No Apparent Distress
HEENT: Normocephalic, Atraumatic and Moist Mucous Membranes
Respiratory: Clear to Auscultation
Cardiac: Regular Rhythm and S1/S2; Negative Murmur, Rub or Gallop
GI: Soft, Nontender, Nondistended and Normal Bowel Sounds; Negative Organomegaly
Rectal: Deferred by Provider
Musculoskeletal: No Clubbing, No Cyanosis and No Edema
Skin: Negative Rash
Neuro: Awake, Alert, Oriented, AO x 3 and Nonfocal/Grossly Intact; Negative Tremors
[2024-02-12 18:36] LABS: Free T4 1.05 ng/dl (0.78-2.19)
[2024-02-12 19:31] VITALS: BP 139/89
[2024-02-12] MEDS: TUMS 1 TABLET PO (20:17)
[2024-02-12 22:27] VITALS: BP 140/93
[2024-02-13 02:52] VITALS: BP 126/78
[2024-02-13 06:39] LABS: % Basophils 0.5 % (0-2); % Eosinophils 0.5 % (0-6); % Immature Granulocytes 0.4 % (0-0.5); % Monocytes 15.3 % (1.7-9.3); % Neutrophils 46.3 % (42.2-75.2); Absolute Lymphocytes 2.1 10^3/uL (1.2-3.4); Absolute Monocytes 0.9 10^3/uL (0.1-0.6); Absolute Neutrophils 2.6 10^3/uL (1.4-6.5); Hematocrit 40.4 % (39.0-52.0); Hemoglobin 14.5 g/dL (13.0-18.0); Mean Corp Hgb Conc. 35.9 g/dL (33.0-37.0); Mean Corpuscular Hgb 33.3 pg (27.0-31.0); Mean Corpuscular Volume 92.7 fL (80.0-94.0); Mean Platelet Volume 9.4 fL (7.4-10.4); Nucleated Red Blood Cells % 0 % (-); Platelet Count 170 10^3/uL (130-400); Red Blood Cell Count 4.36 10^6/uL (4.70-6.10); Red Cell Dist. Width 12.7 % (11.5-14.5); White Blood Cell Count 5.6 10^3/uL (4.8-10.8)
[2024-02-13 07:09] LABS: ALT (SGPT) 32 U/L (0-50); AST (SGOT) 44 U/L (17-59); Albumin 3.6 g/dl (3.5-5.0); Alkaline Phosphatase 101 U/L (38-126); Blood Urea Nitrogen 4 mg/dl (9-20); Calcium 8.8 mg/dl (8.4-10.2); Carbon Dioxide 27 mmol/L (22-30); Chloride 102 mmol/L (98-107); Estimated Creatinine Clearance > 125 ml/min; Glucose 86 mg/dl (70-99); Potassium 3.6 mmol/L (3.5-5.1); Sodium 135 mmol/L (135-145); Total Bilirubin 1.3 mg/dl (0.2-1.3); Total Protein 6.3 g/dl (6.3-8.2); eGFR > 60.00
[2024-02-13 07:48] VITALS: BP 108/70
[2024-02-13] MEDS: NSS 1000 IV (07:55)
[2024-02-13] MEDS: LUMINAL 97.2 MG PO ×3 (07:56→21:07)
[2024-02-13] MEDS: MAG-TAB SR 84 MG PO (07:57)
[2024-02-13] MEDS: VITAMIN C 500 MG PO (07:57)
[2024-02-13] MEDS: THERAGRAN 1 TABLET PO (07:57)
[2024-02-13] MEDS: FOLVITE 1 MG PO (07:57)
[2024-02-13] MEDS: HEPARIN 5000 UNITS SC ×2 (07:57→21:03)
[2024-02-13] MEDS: VITAMIN D3 (cholecalciferol) 25 MCG PO (07:57)
[2024-02-13] MEDS: VITAMIN B-12 1000 MCG PO (07:57)
[2024-02-13] MEDS: PROTONIX IV 40 MG IV (07:58)
[2024-02-13] MEDS: NSS (PRESERVATIVE FREE) 10 ML IV (07:58)
[2024-02-13 11:39] VITALS: BP 146/90
--- NOTE | 2024-02-13 12:13 | W.PN.HOSP.TC ---
Today's Communication/Plan
-
await SW
cont phenobarb taper
d/c planning
Assessment / Plan
Assessment / Plan
pt is a 38 year old male
Alcohol withdrawal with risk for delirium tremens--severe alcohol use disorder with multiple hospitalizations, as well as history of inpatient treatment.
Continue MSAS with lorazepam.
Add oral phenobarbital taper starting at 97 mg p.o. 3 times daily
Continue thiamine/folate
Social work consultation for disposition. Currently patient would not consider inpatient option--wants to do on his own
Evaded LFTs secondary to alcoholic hepatitis with normal lipase--Trending down.
Severe increased anion gap metabolic acidosis/alcoholic ketoacidosis--resolved--d/c fluids--Hyperkalemia secondary to above and dehydration--Follow BMP
Epigastric pain--Lipase normal--Suspect alcoholic gastritis--Hold and avoid NSAIDs--Start PPI
Patient reports family history of thyroid disease--TSH slightly suppressed, possibly euthyroid sick syndrome in acute settings--free T4 WNL
code status -- FULL CODE
Anticipated Discharge: 24 - 48 hours
Subjective/Interval History
-
Date of Service: February 13, 2024
pt feels better--no tremors
Objective Data
-
Labs:
Laboratory Results
02/13/24
06:30
WBC 5.6
Hgb 14.5
Hct 40.4
Plt Count 170
Sodium 135
Potassium 3.6
Chloride 102
Carbon Dioxide 27
BUN 4 L
Creatinine 0.7
Glucose 86
Calcium 8.8
Total Bilirubin 1.3
AST 44
ALT 32
Alkaline Phosphatase 101
Vital Signs:
max temp for 24 hours
02/13/24
11:39
Temp 98.5 F
Vital Signs
Temp Pulse Resp BP Pulse Ox
98.5 F 67 16 146/90 100
02/13/24 11:39 02/13/24 11:39 02/13/24 11:39 02/13/24 11:39 02/13/24 11:39
I&O
02/12/24 02/13/24 02/14/24
06:59 06:59 06:59
Intake Total 1500 / 1500 720 / 720
Balance 1500 / 1500 720 / 720
Review of Systems
-
All other systems: Reviewed and negative
Physical Exam
-
General: Well Developed, Well Nourished and No Apparent Distress
HEENT: Normocephalic and Atraumatic
Respiratory: Clear to Auscultation; Negative Wheezes or Rhonchi
Cardiac: Regular Rhythm and S1/S2; Negative Murmur
GI: Soft, Nontender, Nondistended and Normal Bowel Sounds
Musculoskeletal: No Clubbing, No Cyanosis and No Edema
Neuro: Awake and Alert; Negative Tremors
Psych: Calm
--- NOTE | 2024-02-13 14:42 | CM ---
Reviewed chart, spoke with attending, met with patient to obtain information for assessment. Patient's dad was at bedside. Patient stated that he lives with his mother and father in a three story townhouse with 2 steps to enter.
Patient described himself as independent with his ADLs, personal care, dressing, bathing and he ambulates without device. 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 He drives and can get to his appointments and do all of his own shopping.
Patient denied any DME in his home.
He has not had VN services.
He has never been to a SNF.
He has a prescription plan and uses, [facility] in [place] on [phone] for all of his medications.
His provider is, Mauro Abraham.
Patient was asked if he would be agreeable to ETOH resources. He shared that he has been to various programs from residential to IOP, multiple times and found them to be helpful but not to the point that he has been able to sustain any real length
of sobriety. He has had help from [facility]. He has support from his mother and father.
Patient not currently employed, He expressed that he very much wants to get better and acknowledged that he has a lot of work to do but feels that no resource at this point would help him.
Patient was advised of how to get a hold of CM if he changes his mind. He was appreciative.
Plan: Case management will continue to follow and assist with discharge planning. Home with parents when medically cleared for discharge.
[2024-02-13 15:22] VITALS: BP 148/100
[2024-02-13 19:18] VITALS: BP 138/90
[2024-02-13 23:25] VITALS: BP 111/73
[2024-02-14 03:25] VITALS: BP 118/72
[2024-02-14 03:59] VITALS: BP 118/72
[2024-02-14 07:32] LABS: Hematocrit 46.1 % (39.0-52.0); Hemoglobin 16.5 g/dL (13.0-18.0); Mean Corp Hgb Conc. 35.8 g/dL (33.0-37.0); Mean Corpuscular Hgb 33.2 pg (27.0-31.0); Mean Corpuscular Volume 92.8 fL (80.0-94.0); Mean Platelet Volume 9.9 fL (7.4-10.4); Platelet Count 192 10^3/uL (130-400); Red Blood Cell Count 4.97 10^6/uL (4.70-6.10); Red Cell Dist. Width 12.8 % (11.5-14.5); White Blood Cell Count 4.8 10^3/uL (4.8-10.8)
[2024-02-14 07:54] VITALS: BP 132/91
[2024-02-14 08:09] LABS: ALT (SGPT) 45 U/L (0-50); AST (SGOT) 59 U/L (17-59); Albumin 4.4 g/dl (3.5-5.0); Alkaline Phosphatase 107 U/L (38-126); Blood Urea Nitrogen 10 mg/dl (9-20); Calcium 9.7 mg/dl (8.4-10.2); Carbon Dioxide 29 mmol/L (22-30); Chloride 98 mmol/L (98-107); Estimated Creatinine Clearance 111 ml/min; Glucose 89 mg/dl (70-99); Potassium 3.8 mmol/L (3.5-5.1); Sodium 133 mmol/L (135-145); Total Protein 7.3 g/dl (6.3-8.2); eGFR > 60.00
[2024-02-14] MEDS: VITAMIN D3 (cholecalciferol) 25 MCG PO (09:41)
[2024-02-14] MEDS: PROTONIX IV 40 MG IV (09:41)
[2024-02-14] MEDS: NSS (PRESERVATIVE FREE) 10 ML IV (09:41)
[2024-02-14] MEDS: HEPARIN 5000 UNITS SC (09:41)
[2024-02-14] MEDS: MAG-TAB SR 84 MG PO (09:42)
[2024-02-14] MEDS: LUMINAL 97.2 MG PO (09:42)
[2024-02-14] MEDS: VITAMIN B-12 1000 MCG PO (09:42)
[2024-02-14] MEDS: VITAMIN C 500 MG PO (09:42)
[2024-02-14] MEDS: FOLVITE 1 MG PO (09:42)
[2024-02-14] MEDS: THERAGRAN 1 TABLET PO (09:43)
--- NOTE | 2024-02-14 10:17 | W.PN.HOSP.TC ---
Addendum entered and electronically signed by Radha Simeon MD 02/14/24 13:47:
total DC time 36 min
Original Note:
Today's Communication/Plan
-
see A/P
Assessment / Plan
Assessment / Plan
A/P:
# Alcohol withdrawal POA with risk for delirium tremens
# severe alcohol use disorder with multiple hospitalizations, as well as history of inpatient treatment.
Continue MSAS with lorazepam.
Added oral phenobarbital taper
Continue thiamine/folate
Social work consultation for disposition. Currently patient would not consider inpatient option, wants to do on his own
# Evaded LFTs secondary to alcoholic hepatitis with normal lipase, LFT has normalized
# Severe increased anion gap metabolic acidosis/alcoholic ketoacidosis, resolved
Off IVF
# Resolved Hyperkalemia
# Mild hyponatremia
# Epigastric pain, Suspect alcoholic gastritis
Lipase normal
Hold and avoid NSAIDs
Started PPI
# Patient reports family history of thyroid disease
TSH slightly suppressed at 0.28, free T4 WNL at 1.05
can follow up with endo outpt
code status: FULL CODE
Anticipated Discharge: Within 24 hours
Subjective/Interval History
-
Date of Service: February 14, 2024
Objective Data
-
Labs:
Laboratory Results
02/14/24
07:08
WBC 4.8
Hgb 16.5
Hct 46.1
Plt Count 192
Sodium 133 L
Potassium 3.8
Chloride 98
Carbon Dioxide 29
BUN 10
Creatinine 0.8
Glucose 89
Calcium 9.7
Total Bilirubin 1.0
AST 59
ALT 45
Alkaline Phosphatase 107
Vital Signs:
Vital Signs
Temp Pulse Resp BP Pulse Ox
36.6 C 83 16 132/91 98
02/14/24 07:54 02/14/24 07:54 02/14/24 07:54 02/14/24 07:54 02/14/24 07:54
I&O
02/13/24 02/14/24 02/15/24
06:59 06:59 06:59
Intake Total 720 / 720 3180 / 3180
Balance 720 / 720 3180 / 3180
Review of Systems
-
All other systems: Reviewed and negative
Physical Exam
-
General: Well Developed, Well Nourished, No Apparent Distress, Comfortable and Conversant
HEENT: Normocephalic and Atraumatic
Respiratory: Clear to Auscultation and Non Labored Respirations; Negative Accessory Resp Muscle Use
Cardiac: Regular Rhythm and S1/S2; Negative Murmur
GI: Soft, Nontender, Nondistended and Normal Bowel Sounds
Musculoskeletal: No Clubbing, No Cyanosis and No Edema
Neuro: Awake and Alert; Negative Tremors
Psych: Calm and Intact Judgement/Insight
Data Reviewed
-
Labs: Labs Reviewed by me
[2024-02-14 13:15] VITALS: BP 126/79
--- NOTE | 2024-02-14 13:25 | W.DCSUMMARY ---
Discharge Summary
Discharge Data
Date of Admission: 02/11/24
Date of Discharge: 02/14/24
-
Pending Results: No
Hospital Course
Principal Diagnosis:
Alcohol withdrawal
Resolved transaminitis secondary to alcoholic hepatitis; LFT has normalized
Resolved anion gap metabolic acidosis/alcoholic ketoacidosis
Resolved epigastric pain, suspect due to alcoholic gastritis
Chronic Diagnoses:�
Severe alcohol use disorder with multiple hospitalizations, as well as history of inpatient treatment.
Consultations:�
None
Procedures:�
None
Clinical course:�
This is a 38-year-old male, with past medical history as noted above, who presented with nausea, vomiting, and epigastric pain due to alcohol withdrawal.
Problem 1:
Alcohol withdrawal on admission with resolved transaminitis and alcoholic ketoacidosis
Patient was covered with IV Ativan and was started with oral phenobarbital for alcohol withdrawal while in the hospital.
He has been informed to follow-up outpatient for rehab/counseling.
Problem 2:
Possible subclinical hyperthyroidism.
Patient reported family history of thyroid disease.
His TSH was slightly suppressed at 0.28, but his free T4 was WNL at 1.05.
He can follow up with endo outpatient.
As for the rest of his medical problems, they were stable during his hospital stay.
Discharge Plan
-
Patient Disposition: Home (Routine Discharge)
Discharge Diagnosis/Procedures: alcohol withdrawal; resolved transaminitis; resolved alcoholic ketoacidosis
Condition: Fair
Diet: As tolerated
Activity: As tolerated
Driving Restrictions: As prior to admission
Activity Restrictions/Additional Instructions:
Follow up with endocrine outpatient (your TSH slightly suppressed at 0.28, free T4 WNL at 1.05)
Referrals:
Mauro Abraham MD [Family Provider] - in less than 1 week
Prescriptions:
Continued
multivitamin with folic acid [Tab-A-Bernie] 1 TABLET tablet
1 tab PO DAILY
pantoprazole [Protonix] 40 mg tablet,delayed release (DR/EC)
40 mg PO DAILYPRN PRN (Reason: gerd)
milk thistle 175 mg Tablet
175 mg PO DAILY
cyanocobalamin (vitamin B-12) 1,000 mcg Tablet
1,000 mcg PO DAILY
potassium 99 mg Tablet
99 mg PO DAILY
ascorbic acid (vitamin C) [Vitamin C] 500 mg Tablet
500 mg PO DAILY
ibuprofen [Advil] 200 mg Tablet
400 mg PO Q8HPRN PRN (Reason: mild pain)
folic acid 1 mg Tablet
1 mg PO DAILY
cholecalciferol (vitamin D3) [Vitamin D3] 25 mcg (1,000 unit) Tablet
25 mcg PO DAILY
magnesium oxide 400 mg magnesium Tablet
400 mg PO DAILY
turmeric 400 mg Capsule
400 mg PO DAILY
Discharge Orders:
Discharge Patient (As Directed); Ordered 02/14/24
Ordered By: Radha Simeon
Discharge Date and Time
Print Language: SLOVENIAN
== END 2024-02-14 14:09 | disposition home or self-care (01) | DRG 897 ==
LOC: 3 WEST ACU 19:07
PROVIDERS: Emergency Medicine; Internal Medicine; ADMITTING PHYSICIAN Hospitalist; ATTENDING PHYSICIAN Internal Medicine; EMERGENCY PHYSICIAN Student in an Organized Health Care Education/Training Program; FAMILY PHYSICIAN Family Medicine
DX: F10.239 Alcohol dependence with withdrawal, unspecified (principal); E87.29 Other acidosis; K70.10 Alcoholic hepatitis without ascites; K29.20 Alcoholic gastritis without bleeding; E05.90 Thyrotoxicosis, unspecified without thyrotoxic crisis or storm; E86.0 Dehydration; E87.5 Hyperkalemia; E86.1 Hypovolemia; K21.9 Gastro-esophageal reflux disease without esophagitis; K57.30 Diverticulosis of large intestine without perforation or abscess without bleeding; F41.9 Anxiety disorder, unspecified; F12.90 Cannabis use, unspecified, uncomplicated; R25.1 Tremor, unspecified; R68.83 Chills (without fever); R73.9 Hyperglycemia, unspecified; Z79.899 Other long term (current) drug therapy; Z87.891 Personal history of nicotine dependence; Z87.19 Personal history of other diseases of the digestive system; Z88.2 Allergy status to sulfonamides; Z83.49 Family history of other endocrine, nutritional and metabolic diseases
CPT/HCPCS: 80053; 82077; 83690; 83735; 84439; 84443; 85025; 85027; 96361; 96374; 96375; 96376; 99285

== ENCOUNTER 2024-03-06 20:48 | Inpatient (IN) | payer OTHER, SELFPAY ==
[2024-03-06] VITALS (10 sets, daily range): BP systolic 125–154; BP diastolic 85–105; BMI 20.8; BMI 20.1
[2024-03-06 18:16] LABS: % Basophils 0.5 % (0-2); % Immature Granulocytes 0.2 % (0-0.5); % Lymphocytes 8.1 % (20.5-51.1); % Monocytes 5.1 % (1.7-9.3); % Neutrophils 86.1 % (42.2-75.2); Absolute Lymphocytes 0.5 10^3/uL (1.2-3.4); Absolute Monocytes 0.3 10^3/uL (0.1-0.6); Absolute Neutrophils 5.5 10^3/uL (1.4-6.5); Hematocrit 52.8 % (39.0-52.0); Hemoglobin 18.4 g/dL (13.0-18.0); Mean Corp Hgb Conc. 34.8 g/dL (33.0-37.0); Mean Corpuscular Hgb 32.2 pg (27.0-31.0); Mean Corpuscular Volume 92.5 fL (80.0-94.0); Mean Platelet Volume 9.6 fL (7.4-10.4); Nucleated Red Blood Cells % 0 % (-); Platelet Count 246 10^3/uL (130-400); Red Blood Cell Count 5.71 10^6/uL (4.70-6.10); Red Cell Dist. Width 13.7 % (11.5-14.5); White Blood Cell Count 6.3 10^3/uL (4.8-10.8)
[2024-03-06 18:26] LABS: AST (SGOT) 115 U/L (17-59); Albumin 5.6 g/dl (3.5-5.0); Alcohol 111 mg/dl; Alkaline Phosphatase 192 U/L (38-126); Blood Urea Nitrogen 7 mg/dl (9-20); Carbon Dioxide 8 mmol/L (22-30); Chloride 95 mmol/L (98-107); Glucose 119 mg/dl (70-99); Potassium 5.1 mmol/L (3.5-5.1); Sodium 139 mmol/L (135-145); Total Bilirubin 0.9 mg/dl (0.2-1.3); Total Protein 9.1 g/dl (6.3-8.2); eGFR > 60.00
[2024-03-06 18:28] LABS: Troponin I < 0.012 ng/ml
[2024-03-06 18:30] LABS: ALT (SGPT) 68 U/L (0-50)
[2024-03-06 19:45] LABS: Lipase 93 U/L (23-300)
--- NOTE | 2024-03-06 19:46 | ED.GENMED ---
History of Present Illness
General
Chief Complaint: Abdominal Symptoms
Source: patient
Time Seen by Provider: 03/06/24 19:19
History of Present Illness
History of Present Illness:
38-year-old male with a history of alcohol use disorder presents emergency department intractable nausea and vomiting that began this morning continues. He denies coffee-ground emesis or bright red blood in his emesis. He is unable to tolerate
solids or liquids. He tried to drink alcohol today without success, thinks he vomited back up. His last bowel movement was yesterday. He describes upper abdominal and back discomfort typical of when he develops these episodes. He feels that his
esophagus is 'burning' particular when he vomits. He denies dizziness, fever, chills, chest pain, shortness of breath, or other complaints. Patient drinks approximately a half a pint of whiskey per day. He declines to be CARES consult at this
time.
Past History
Past History
ED Past Medical History: Other (Alcohol abuse, reflux)
ED Past Surgical History: None
Social History
Tobacco: Smoker
Alcohol: Chronic alcoholic
Drug: Marijuana
Personal: Single
Living: with family
Employment: Employed
Family History
Family History: Other (Noncontributory)
Phy Exam
Physical Exam
Physical Exam:
GENERAL: Alert , in no apparent distress, appears nauseous
EYE: pupils equal and reactive
NECK: Supple, no significant adenopathy.
ENT: o/p clr, mm very dry
CARDIAC: Regular rate and rhythm .
LUNGS: Clear breath sounds bilaterally, no acute respiratory distress, no wheezes/rales/rhonchi
ABDOMEN: Soft, without focal tenderness, no r/g, no cvat
NEUROLOGICAL: Alert and oriented, no focal neuro deficits
SKIN: Warm and dry, skin intact.
MUSCULOSKELETAL: No edema, well perfused.
PSYCH: Normal and appropriate interaction.
Course
Orders/Labs/Results
Orders:
Orders
03/06/24 Dinner
Clear Liquid
At Your Request: Full Participation
Does patient need a safe tray?: No
03/06/24 17:44
Electrocardiogram (*1) Urgent
Reason for Study: Chest Pain
EKG- Treatment ONCE
03/06/24 17:56
Alcohol Urgent
Complete Blood Count/With Diff Urgent
Comprehensive Metabolic Panel Urgent
Lipase Urgent
Comment: ADD ON
Magnesium Urgent
Comment: ADDON
Phosphorus Urgent
Troponin I Urgent
03/06/24 19:11
Add On- LAB Urgent
Tests Added?: lipase
03/06/24 19:40
IV Insert/Care/Rem.- Treatment PRN
03/06/24 19:41
Urine Drug Abuse Screen Urgent
Date Specimen was Collected: 03/07/24
Time Specimen was Collected: 02:53
Thiamine Injection 200 mg IV NOW STA
03/06/24 19:45
0.9% Sodium Chloride 1000 ml [Nss] 1,000 ml IV 1,000 mls/hr
03/06/24 19:46
Lorazepam [Ativan] 1 mg IV NOW STA
03/06/24 19:47
Pantoprazole [Protonix IV] 80 mg IV NOW STA
03/06/24 19:58
Ondansetron Injectable [Zofran] 4 mg IV NOW STA
03/06/24 20:16
Admit/Transfer Patient As Directed
Co-Sign Provider:
Level of Care: Inpatient admission
Assign to:: ICU
Physician / Group: saqib keating
Diagnosis: alcoholic ketoacidosis, etoh intox, alcoholic gastritis/hepatitis
Reason for Hospitalization: alcoholic ketoacidosis, etoh intox, alcoholic gastritis/hepatitis
Expected length of stay greater than two midnights?: Yes
ELOS- Estimated Length of Stay in days: 4
I certify the patient meets the requirements for IP care: Yes
Code Status As Directed
Resuscitation Status: Full Code
03/06/24 20:20
PRN Pain Medication Management As Directed
May give lesser potent ordered pain med per pt: Yes
preference::
Protocol:: Medication orders for pain may be administered in a
manner that supports deferring to patient preference
when the pt is:
- Requesting an ordered lesser potent pain medication.
Least to most potent pain medications are defined
as: acetaminophen < NSAID < tramadol < opioids
(morphine, oxycodone, hydromorphone).
- Requesting a lesser dose of the same medication IF
ORDERED.
- Requesting a less intrusive route of administration
if both routes are prescribed by the provider (PO <
IV).
03/06/24 20:42
FOLic ACID [Folvite] 1 mg 0.9% Sodium Chloride 50 ml [Nss] 50 ml IV NOW
03/06/24 21:00
0.9% Sodium Chloride 1000 ml [Nss] 1,000 ml Mvi, Adult [Multivitamin] 10 ml Thiamine Injection 100 mg IV 500 mls/hr
03/06/24 21:18
0.9% Sodium Chloride 1000 ml [Nss] 1,000 ml IV 100 mls/hr
0.9% Sodium Chloride [Nss (Preservative Free)] See Protocol IV PRN PRN
FOLic ACID [Folvite] 1 mg 0.9% Sodium Chloride 50 ml [Nss] 50 ml IV DAILYPRN
Lorazepam [Ativan] 1 mg IV Q1HPRN PRN
Lorazepam [Ativan] 1 mg PO Q2HPRN PRN
Lorazepam [Ativan] 2 mg IV Q1HPRN PRN
03/06/24 21:18
Case Management Consult Once
Case Management Consult: Other
Comment: Substance abuse counseling
DIETARY CONSULT Routine
Reason for Consult: Nutrition support, possible refeeding guidelines
Urinalysis Routine
Date Specimen was Collected: 03/07/24
Time Specimen was Collected: 02:53
Activity As Directed
Activity Level: With Assistance
Intake/ Output As Directed
Frequency: Per unit guidelines
MSAS SCORE As Directed
MSAS Score 0-4: Repeat MSAS every 2 hours until 0-4 for three consecutive assessments, then every 4 hours x 48
hours.
MSAS Score 5-7: For MILD withdrawl symptoms. Repeat MSAS and RASS every 2 hours
MSAS Score 8-11: For MODERATE withdrawal symptoms. Repeat MSAS and RASS every 1 hour. Consider ICU or IMU
level of care.
MSAS Score > 11: For SEVERE withdrawal symptoms. Repeat MSAS and RASS every 1 hour. Notify provider, consider
ICU level of care.
MSAS Additional Instructions: If no improvement or no decrease in score from severe to moderate within 12
hours, consult psychiatry
MSAS Notify Provider: Notify provider if patient requires more than 10 mg of Lorazepam in eight hour period.
Vital Signs As Directed
Frequency: Per unit guidelines
Ot Eval And Treat Routine
Pt Eval And Treat Routine
Activity Level: As Tolerated
DX Deep Vein Thrombosis Video Routine
03/06/24 21:24
Phenobarbital Sodium [Phenobarbital] 260 mg 0.9% Sodium Chloride 100 ml [Nss] 100 ml IV NOW
03/06/24 22:00
Nystatin Suspension [Mycostatin Oral Suspension] 5 ml PO QID
03/06/24 23:00
COVID-19 Antigen Urgent
Source: Nasal Swab
PTT Urgent
Prothrombin Time Urgent
03/07/24 00:00
Thiamine Injection 200 mg IV Q8
03/07/24 02:45
Complete Blood Count/With Diff IN AM
Comprehensive Metabolic Panel IN AM
03/07/24 08:00
FOLic ACID [Folvite] 1 mg PO DAILY
Magnesium Oxide 400 mg PO DAILY
Pantoprazole [Protonix IV] 40 mg IV DAILY
Phenobarbital Sodium [Phenobarbital] 97.5 mg IV TID
03/07/24 18:00
Enoxaparin Sodium [Lovenox] 40 mg SC QPM
03/08/24 07:38
Complete Blood Count/With Diff IN AM
Comprehensive Metabolic Panel IN AM
03/09/24 08:00
Phenobarbital [Luminal] 64.8 mg PO TID
03/10/24 08:00
Thiamine HCl [Vitamin B1] 100 mg PO BID
03/11/24 08:00
Phenobarbital [Luminal] 32.4 mg PO TID
Abnormal Lab Results
03/06/24
17:56
Hgb 18.4 H g/dL
(13.0-18.0)
Hct 52.8 H %
(39.0-52.0)
MCH 32.2 H pg
(27.0-31.0)
Absolute Lymphs (auto) 0.5 L 10^3/uL
(1.2-3.4)
Neutrophils % 86.1 H %
(42.2-75.2)
Lymphocytes % 8.1 L %
(20.5-51.1)
Chloride 95 L mmol/L
(98-107)
Carbon Dioxide 8 L* mmol/L
(22-30)
BUN 7 L mg/dl
(9-20)
Glucose 119 H mg/dl
(70-99)
Phosphorus 5.1 H mg/dl
(2.5-4.5)
AST 115 H U/L
(17-59)
ALT 68 H U/L
(0-50)
Alkaline Phosphatase 192 H U/L
(38-126)
Total Protein 9.1 H g/dl
(6.3-8.2)
Albumin 5.6 H g/dl
(3.5-5.0)
03/06/24 17:56
03/06/24 17:56
Vital Signs
Initial and Last Documented VS:
Initial Vital Signs
Temp Pulse Resp BP Pulse Ox
98.4 F 119 16 154/105 97
03/06/24 17:40 03/06/24 17:40 03/06/24 17:40 03/06/24 17:40 03/06/24 17:40
Last Documented Vital Signs
Temp Pulse Resp BP Pulse Ox
98.9 F 89 18 132/96 97
03/08/24 15:37 03/08/24 15:37 03/08/24 15:37 03/08/24 15:37 03/08/24 15:37
*Critical Care Note
Total Time (30-74mins, 75-104mins- exclusive of procedures): Not Applicable
Update Note
Update Note:
Patient presents to the Emergency Department with ___intractable vomiting
Number and Complexity of Problems Addressed at the Encounter
� Chronic conditions affecting care:
� Acute Exacerbation and/or Progression of Chronic Illness:
� Differential Diagnosis includes: DKA, AKA, dehydration, pancreatitis, hepatitis, bowel obstruction, etc. etc.
Amount and/or Complexity of Data to be Reviewed and Analyzed
� I performed an independent evaluation of and my interpretation is:
EKG:
CT:
Xrays:
Laboratory Studies:
Other:
� Review of other/old records reveals: Prior hospitalization for similar event February 2024
� Clinical information was obtained by an independent historian:
� Prescriptions/Medications Considered but not given:
� Further testing considered but not performed:
Risk of Complications and/or Morbidity or Mortality of Patient Management
� Social determinants of health affecting care:
� Discussion with other providers (PCP, Hospitalists, Consultants, etc):
� Escalation of care including admission/observation vs risk of discharge considered: Treatment initiated with IV fluids, thiamine, antiemetics, benzos for potential impending alcohol withdrawal, etc. Case discussed with Dr. JENKINS
for admission suggest ICU given degree of acidosis. Patient is awake and alert. Some labs are pending including mag and Phos. Patient denies my suggestion for OB cares consult now but is agreeable to 1 in the morning, this was discussed with
Dr. MACHADO Y
ED Attending Note
-
Portions of this chart may have been created with voice recognition software.� Occasional wrong word or��sound alike� substitutions may have occurred due to the inherent limitations of voice recognition software.
Discharge Plan
Departure
Patient Disposition: Admit
Date of Disposition: 03/06/24
Time of Disposition: 19:55
Admit to: ICU
Admit to doctor: zuri
Presentation/result/management discussed w/ accepting MD/DO: Hospitalist
Condition: Critical
Discharge Problem:
Alcoholic ketoacidosis
Interventions
Interventions:
*Risk Screen - Suicide Last Done: 03/06/24 21:21
*General Assessment Last Done: 03/06/24 17:40
*Neglect/Abuse Screening Last Done: 03/06/24 17:40
ED- Fall Risk Assessment Last Done: 03/06/24 19:51
*ED COVID-19 Vaccine History Last Done: 03/06/24 21:21
*Nursing Disposition Last Done: 03/06/24 21:17
IU-Tbavvs-Bcagafowyg Assessment Last Done: 03/06/24 19:51
Discharge Date and Time
Discharge Date/Time: 03/06/24 21:18
--- NOTE | 2024-03-06 19:58 | HPS.HSE ---
Family Physician
-
Family Physician:
Chief Complaint
-
Epigastric pain, painful swallowing, oral thrush, nausea, vomiting, alcohol abuse
History of Present Illness
38-year-old male complaining of intractable nausea and vomiting that began this a.m. He is unable to tolerate solids or liquids. He reports he was able to drink alcohol today at 12 noon, but threw up several hours later. His current alcohol level
is 111 on labs. He complains of epigastric pain through to his back burning in sensation. He also complains of painful swallowing and oral thrush which she has had several times. He denies coffee-ground emesis, black stools, chest pain,
palpitations, shortness of breath, cough. He typically drinks approximately half pint of whiskey per day.
He had a recent admission 8 02/14/2024 for alcohol withdrawal, anion gap metabolic acidosis/alcoholic ketoacidosis, epigastric pain due to alcoholic gastritis with transaminase secondary to alcoholic hepatitis LFTs normalized.
He has past medical history of chronic alcohol abuse/alcoholic gastritis, alcoholic hepatitis, anion gap metabolic acidosis, GERD, active smoker, marijuana use.
Medical History
Past Medical History
Past Medical History: Reports Other ( alcohol use disorder, alcoholic hepatitis, recurrent alcoholic pancreatitis, GERD, diverticulosis)
Past Surgical History: Reports None
Social History
Tobacco: Former Smoker (Smoked from -)
Alcohol: Daily (1/2 pint of whiskey per day)
Drug: Marijuana (Smokes marijuana oil in a bong)
Personal: Single
Employment: Employed
Family History
Family History: Not pertinent
Allergies / Home Medications
Allergies reflects when Allergies were last updated in [employer]
Home Medications with original date entered in [employer]
Allergy/Medication List:
Allergies
Allergy/AdvReac Type Severity Reaction Status Date / Time
Sulfa (Sulfonamide Allergy Rash Verified 02/11/24 12:21
Antibiotics)
Home Medications
multivitamin with folic acid 400 mcg tablet (Tab-A-Bernie) 1 tab PO DAILY Supplement 10/03/21
pantoprazole 40 mg tablet,delayed release (Protonix) 40 mg PO DAILYPRN PRN gerd 12/01/23
ascorbic acid (vitamin C) 500 mg tablet (Vitamin C) 500 mg PO DAILY 02/11/24
cholecalciferol (vitamin D3) 25 mcg (1,000 unit) tablet (Vitamin D3) 25 mcg PO DAILY 02/11/24
cyanocobalamin (vitamin B-12) 1,000 mcg tablet 1,000 mcg PO DAILY 02/11/24
folic acid 1 mg tablet 1 mg PO DAILY 02/11/24
ibuprofen 200 mg tablet (Advil) 400 mg PO Q8HPRN PRN mild pain 02/11/24
magnesium oxide 400 mg PO DAILY 02/11/24
milk thistle 175 mg tablet 175 mg PO DAILY 02/11/24
potassium 99 mg tablet 99 mg PO DAILY 02/11/24
turmeric 400 mg capsule 400 mg PO DAILY 02/11/24
Review of Systems
-
History Source: Patient
A 12 point ROS was completed and negative except as noted: Yes
Constitutional: Denies Fever or Chills
EENT: Reports Sore Throat and Other (Oral thrush); Denies Runny Nose
Respiratory: Denies Cough or Trouble Breathing
Cardiac: Denies Chest Pain, Diaphoresis, Palpitations or Syncope
Abdomen/GI: Reports Abdominal Pain (Epigastric), Nausea and Vomiting; Denies Diarrhea, Constipated, Bloody Stools, Black Stools or Anorexia
: Denies Dysuria, Frequency, Flank Pain, Incontinence, Difficulty Voiding, Urgency, Bleeding or Dark Urine
Musculoskeletal: Denies Joint Pain or Edema
Skin: Denies Itching or Rash
Neurological: Reports Dizzy and Headache; Denies Weakness
Endocrine: Reports No Symptoms
Hematologic/Lymphatic: Reports No Symptoms
Psych: Reports Calm
Physical Exam
Vital Signs
Vital Signs
Temp Pulse Resp BP Pulse Ox
98.4 F 119 16 154/105 97
03/06/24 17:40 03/06/24 17:40 03/06/24 17:40 03/06/24 17:40 03/06/24 17:40
Physical Exam
General: Conversant and Pain (Epigastric burning); No Fever or Chills
HEENT: NormoCephalic, Anicteric, PERRLA, [place] Conjunctivae, No Ptosis and Other (Positive oral thrush present)
Respiratory: Clear; No Wheezes, Rales or Rhonchi
Cardiac: S1/S2 and Tachycardia (Sinus tachycardia 124 bpm on monitor); No Murmur, Rub, Gallop or Peripheral Edema
Breast: Deferred by me
GI: Soft, Non Distended, Normal Bowel Sounds and Tender (Epigastric area)
Rectal: Deferred by Provider
Genito-urinary: Deferred by me
Musculoskeletal: No Clubbing, No Cyanosis and No Edema
Skin: Warm and Dry; No Rash
Neuro: AO x 3, No Motor Deficits, Nonfocal/grossly intact, Cranial Nerves Intact and No Sensory Deficits; No Slurred Speech, Facial Droop or Tremors
Psych: Anxious
Laboratory Results
-
03/06/24 17:56
03/06/24 17:56
Laboratory Results
Total Bilirubin 0.9 mg/dl (0.2-1.3) 03/06/24 17:56
AST 115 U/L (17-59) H 03/06/24 17:56
ALT 68 U/L (0-50) H 03/06/24 17:56
Alkaline Phosphatase 192 U/L (38-126) H 03/06/24 17:56
Troponin I < 0.012 ng/ml 03/06/24 17:56
Lipase 93 U/L (23-300) 03/06/24 17:56
Impression/Plan
-
Impression/plan:
Admit to ICU
#Recurrent anion gap metabolic acidosis/alcoholic ketoacidosis
Carbon dioxide serum 8
-NSS with MVI and thiamine x 1 L in ER then NSS 100 cc/h
#Acute on chronic alcohol abuse
Alcohol level 111
MSSA screen with protocol
-Start phenobarb taper
-IV thiamine, folate
-Consult psychiatry
#Intractable vomiting likely secondary to alcoholic gastritis
-IV Protonix 80 mg given in ER
-Start IV PPI 40 mg daily
#Concern for oral thrush
-Will give nystatin swish and swallow
#Acute on chronic transaminitis secondary to alcoholic hepatitis
Will follow CMP
DVT prophylaxis
Subcu Lovenox
Full code
[2024-03-06] MEDS: NSS 1000 IV (20:05)
[2024-03-06] MEDS: PROTONIX IV 80 MG IV (20:06)
[2024-03-06] MEDS: ATIVAN 1 MG IV ×2 (20:06→22:56)
[2024-03-06] MEDS: ZOFRAN 4 MG IV (20:06)
--- NOTE | 2024-03-06 20:09 | W.PN.UPDATE ---
Addendum entered and electronically signed by Bryan Guzman MD 03/06/24 20:21:
This note serves as an addendum to the H&P by lien searcher SPRING Katharine AGUIRRE
- Consult Psych
Original Note:
Update Note
Progress Note Update
HPI
38M HX significant EIH Use disorder, ETOH gastritis seen at ER for intractable nausea and vomiting
- onset since this AM
- vomited with ETOH intake today
- associated with upper abdominal and back discomfort
- reports drinks approximately a half a pint of whiskey per day.
ROS
denies coffee-ground emesis or bright red blood in his emesis
denies dizziness, fever, chills, chest pain, shortness of breath, or other complaints.
PMHX: (Alcohol abuse, reflux)
PSHX: None
SHX:
Tobacco: Smoker
Alcohol: Chronic alcoholic
Drug: Marijuana
Personal: Single
Living: with family
Employment: Employed
FHX: Other (Noncontributory)
Reviewed VS: Afebrile HR: ST 119 BP 155.105 RR 16
PE
Gen: thin , appropriate, alert
HEENT: anicteric . severely coated tongue, can not scrapped with wooden sabulum, did not see oral mucalsal thrush
Neck: supple
Lungs: CTA
Cor:RRR S1 S2
Abdomen: soft , NT NG
TELEGRAPH REPEATER TECHNICIAN: AAO3, interactive and , approbate
MS: no e
Psych: normal affect, normal mood
Data
08/20/21 10/02/21 03/06/24
13:08 19:34 17:56
WBC 6.3
Hgb 18.4 H
Plt Count 246
Sodium 139
Potassium 5.1
Chloride 95 L
Carbon Dioxide 8 L*
BUN 7 L
Creatinine 1.0
eGFR > 60.00
AST 115 H
ALT 68 H
Alkaline Phosphatase 192 H
Albumin 5.6 H
U Marijuana (THC) Screen Positive H
Alcohol, Quantitative < 10 111
EKG
SINUS TACHYCARDIA
OTHERWISE NORMAL ECG
WHEN COMPARED WITH ECG OF 18-JAN-2024 19:37,
VENT. RATE HAS INCREASED BY 37 BPM
Last hospitalist admission: 02/11/24 -02/14/24
Alcohol withdrawal
Resolved transaminitis secondary to alcoholic hepatitis; LFT has normalized
Resolved anion gap metabolic acidosis/alcoholic ketoacidosis
Resolved epigastric pain, suspect due to alcoholic gastritis
ASSESSMENT & PLAN
Pending Rx reconciliation
Severe AG MA of 36 due to ETOH ketoacidosis
Asso. with intractable N & V
Associated volume contraction
- Fluid resusciciation with IV NS @ 140/H
- check B- hydroxy butyrate
- trend AG MA
Hi risk for Alcohol withdrawal syndrome
So far ETOH level is in 111
- Banana bag +NS fluids
- Thiamine and folate
- Alcohol withdrawal protocol with PHB protocol
- Zofran PRN
- clear for now and ADAT
Mild Hyperkalemia secondary to AG MA
- Hold potassium supplement
Transaminitis secondary to alcohol hepatitis
Abdominal pain likely alcoholic gastritis
- Continue IV Protonix daily
- Hold ibuprofen
DVT Px: SQH
Code: full code
ICU
[2024-03-06 20:38] LABS: Magnesium 1.7 mg/dl (1.6-2.3); Phosphorus 5.1 mg/dl (2.5-4.5)
[2024-03-06] MEDS: FOLVITE 50.2 MG IV (21:19)
[2024-03-06] MEDS: MULTIVITAMIN 1011 ML IV (21:19)
[2024-03-06] MEDS: MULTIVITAMIN 1011 MG IV (21:19)
--- NOTE | 2024-03-06 21:45 | PTCARENOTE ---
Received pt from ED, pt able to ambulate to bed, AAOx4 MSAS 5 thrush on tongue, sinus tach mildly diaphoretic + radials and pedals no edema, lungs clears B/L throughout RR 18, urinal @ bedside due to void, BSx4 pt nauseous and complains of 7/10 pain
throughout abdomen and middle of back states its from the N/V, no wounds or skin break down, 20G LFA NS 100ml, able to make needs known call lora within reach, otherwise refer to documentation.
[2024-03-06] MEDS: PHENOBARBITAL 104 MG IV (21:50)
[2024-03-06] MEDS: MAGNESIUM SULFATE 102 GRAMS IV (22:43)
[2024-03-06] MEDS: MYCOSTATIN ORAL SUSPENSION 5 ML PO (22:43)
[2024-03-06] MEDS: NSS (PRESERVATIVE FREE) 0.5 ML IV (22:56)
[2024-03-07] VITALS (24 sets, daily range): BP systolic 117–147; BP diastolic 78–98; PULSE 91–94; O2SAT 100; BMI 20.8
[2024-03-07] MEDS: NSS IV ×4 (00:10→00:12)
[2024-03-07] MEDS: THIAMINE INJECTION 200 MG IV ×4 (01:14→23:23)
[2024-03-07] MEDS: NSS 1000 IV ×3 (01:15→17:11)
[2024-03-07 03:07] LABS: COVID-19 Antigen Negative (Negative)
[2024-03-07 03:13] LABS: % Basophils 0.2 % (0-2); % Immature Granulocytes 0.4 % (0-0.5); % Lymphocytes 12.2 % (20.5-51.1); % Monocytes 11.6 % (1.7-9.3); % Neutrophils 75.6 % (42.2-75.2); Absolute Monocytes 0.9 10^3/uL (0.1-0.6); Absolute Neutrophils 6.1 10^3/uL (1.4-6.5); Hematocrit 45.6 % (39.0-52.0); Hemoglobin 15.8 g/dL (13.0-18.0); Mean Corp Hgb Conc. 34.6 g/dL (33.0-37.0); Mean Corpuscular Hgb 33.1 pg (27.0-31.0); Mean Corpuscular Volume 95.4 fL (80.0-94.0); Mean Platelet Volume 9.7 fL (7.4-10.4); Nucleated Red Blood Cells % 0 % (-); Platelet Count 182 10^3/uL (130-400); Red Blood Cell Count 4.78 10^6/uL (4.70-6.10); Red Cell Dist. Width 13.4 % (11.5-14.5); White Blood Cell Count 8.1 10^3/uL (4.8-10.8)
[2024-03-07 03:14] LABS: Urine Albumin Trace (Neg - Trace); Urine Bilirubin Negative (Negative); Urine Character Clear (Clear); Urine Color Yellow; Urine Glucose Negative (Negative); Urine Ketone 3+ (Negative); Urine Leukocyte Negative (Negative); Urine Nitrite Negative (Negative); Urine Occult Blood Negative (Negative); Urine Specific Gravity 1.025 (<1.030); Urine Urobilinogen Negative (Neg - 1+)
[2024-03-07 03:20] LABS: INR 1.15; PT 14.6 Sec (11.4-14.6)
[2024-03-07 03:21] LABS: APTT 27.5 Sec (23.4-35.0)
[2024-03-07 03:49] LABS: ALT (SGPT) 52 U/L (0-50); AST (SGOT) 73 U/L (17-59); Albumin 4.3 g/dl (3.5-5.0); Alkaline Phosphatase 130 U/L (38-126); B-Hydroxybutyrate 5.43 mmol/L (0.02-0.27); Blood Urea Nitrogen 6 mg/dl (9-20); Calcium 8.9 mg/dl (8.4-10.2); Carbon Dioxide 14 mmol/L (22-30); Chloride 99 mmol/L (98-107); Estimated Creatinine Clearance 108 ml/min; GGTP 134 U/L (15-73); Glucose 127 mg/dl (70-99); Phosphorus 2.3 mg/dl (2.5-4.5); Potassium 5.2 mmol/L (3.5-5.1); Sodium 134 mmol/L (135-145); Total Bilirubin 1.1 mg/dl (0.2-1.3); eGFR > 60.00
[2024-03-07 03:54] LABS: Barbiturates Positive (Negative)
[2024-03-07 03:55] LABS: Amphetamines Negative (Negative); Benzodiazepines Positive (Negative); Buprenorphine Negative (Negative); Cocaine Negative (Negative); Marijuana Positive (Negative); Methadone Negative (Negative); Methamphetamines Negative (Negative); Opiates Negative (Negative); Phencyclidine Negative (Negative); Tricyclic Antidepressants Negative (Negative)
--- NOTE | 2024-03-07 03:58 | PTCARENOTE ---
systems reviewed, pt remains alert and calm, 20G placed in RFA and labs drawn, pt urinated 600, otherwise refer to documentation.
[2024-03-07 04:06] LABS: Fentanyl, Urine Negative (Negative)
--- NOTE | 2024-03-07 08:10 | PTCARENOTE ---
Received pt with his eyes closed. Easily awoken with verbal and tactile stimuli. Left FA #20g protective catheter with 0.9nss@100ml/hr. Right FA#20g protective catheter flushed and patent. Good peripheral pulses, no edema. Lings CTA, RA sat 98%.
Denies SOB. Stated his abdominal symptoms improved. No nausea. He was instructed to call if he has nausea, vomiting or any S/S of withdrawal that he reported was tremors, sweating, palpitations and anxiety in the past. He verbalized his
understanding of calling for any of those symptoms. +BSX4. Tolerating clears. Hypoactive BSX4. I also reviewed the plan of care regarding managing his alcohol withdrawal symptoms and when medications would be warranted. Towels supplied for when he
is ready to get cleaned up for the day and perform mouth care.
[2024-03-07] MEDS: MAGNESIUM OXIDE 400 MG PO (08:37)
[2024-03-07] MEDS: FOLVITE 1 MG PO (08:37)
[2024-03-07] MEDS: MYCOSTATIN ORAL SUSPENSION 5 ML PO ×4 (08:38→22:14)
[2024-03-07] MEDS: PHENOBARBITAL 97.5 MG IV ×3 (08:38→22:10)
[2024-03-07] MEDS: PROTONIX IV 40 MG IV (10:30)
--- NOTE | 2024-03-07 10:30 | PTCARENOTE ---
Pt's mother at the bedside. She too was informed of the plan of care in managing his symptoms of withdrawal. She had no questions.
--- NOTE | 2024-03-07 10:39 | PTCARENOTE ---
Pt OOB to chair. His mother remains present in the room. He was encouraged to stay in the chair. No changes otherwise. Warm blanket provided. Safe environment maintained.
--- NOTE | 2024-03-07 11:06 | CON.INTV ---
Consultation
Consultation Request
Date/Time Consultation Requested: 03/07/2024
Date/Time Consultation Performed: 03/07/2024
Requesting Provider: Dr. Bowman
Performing Provider: Dr. Mirza Oconnor
Reason for Consultation: Alcohol withdrawal/metabolic acidosis
Medical History
-
History of Present Illness:
38-year-old male with history of alcoholism recently discharged from the hospital for alcoholic acidosis/starvation ketosis and alcohol withdrawal. Comes back on 03/06/2024 complaining of intractable nausea and vomiting since the morning. Unable to
tolerate any solids or liquids. He tried to drink alcohol yesterday but threw up several hours later. On admission alcohol level was 111.
Complains of epigastric pain. Reports painful to swallow and has oral thrush.
Denies any black stool, bloody vomiting, shortness of breath or cough with phlegm production.
He drinks on a daily basis mainly whiskey about a pint per day.
Again, discharged from the hospital on 02/14/2024 for alcohol withdrawal and acidosis with alcoholic gastritis and transaminitis.
See assessment and plan.
Transferred to the critical care unit for management of alcohol withdrawal
Past Medical History
Past Medical History: Other
Social History
Tobacco: Former Smoker
Alcohol: Daily
Drug: Marijuana
Personal: Single
Employment: Employed
Family History
Family History: Reviewed & Not Pertinent
Allergies / Home Medications
Allergies
Allergy/AdvReac Type Severity Reaction Status Date / Time
Sulfa (Sulfonamide Allergy Rash Verified 02/11/24 12:21
Antibiotics)
Home Medications
�Medication �Instructions �Recorded �Confirmed �Last Taken �Type
multivitamin with folic acid 400 1 tab PO DAILY Supplement 10/03/21 03/06/24 02/09/24 History
mcg tablet (Tab-A-Bernie)
pantoprazole 40 mg tablet,delayed 40 mg PO DAILY Gastrointestinal 12/01/23 03/06/24 Unknown History
release (Protonix) Issue
ascorbic acid (vitamin C) 500 mg 500 mg PO DAILY Supplement 02/11/24 03/06/24 02/09/24 History
tablet (Vitamin C)
cholecalciferol (vitamin D3) 25 25 mcg PO DAILY Supplement 02/11/24 03/06/24 02/09/24 History
mcg (1,000 unit) tablet (Vitamin
D3)
cyanocobalamin (vitamin B-12) 1,000 mcg PO DAILY Supplement 02/11/24 03/06/24 02/09/24 History
1,000 mcg tablet
folic acid 1 mg tablet 1 mg PO DAILY Supplement 02/11/24 03/06/24 02/09/24 History
ibuprofen 200 mg tablet (Advil) 400 mg PO Q8HPRN PRN mild pain 02/11/24 03/06/24 02/10/24 History
magnesium oxide 400 mg PO DAILY Supplement 02/11/24 03/06/24 02/09/24 History
milk thistle 175 mg tablet 175 mg PO DAILY Supplement 02/11/24 03/06/24 02/09/24 History
potassium 99 mg tablet 99 mg PO DAILY Supplement 02/11/24 03/06/24 02/09/24 History
turmeric 400 mg capsule 400 mg PO DAILY Supplement 02/11/24 03/06/24 02/09/24 History
thiamine HCl (vitamin B1) 100 mg 100 mg PO DAILY Supplement 03/06/24 03/06/24 Unknown History
tablet
Review of Systems
-
History Source: Patient
All other systems: Negative unless noted
Vitals / Labs / Diagnostic Testing
Vital Signs
Temp Pulse Resp BP Pulse Ox
98 F 100 20 136/97 98
03/07/24 10:39 03/07/24 10:00 03/07/24 10:00 03/07/24 10:00 03/07/24 10:39
Lab Data
03/07/24 02:45
03/07/24 02:45
Laboratory Results
03/07/24
02:45
PT 14.6
INR 1.15
APTT 27.5
Diagnostic Testing:
Physical Exam
-
HEENT: Normocephalic
Cardiovascular: S1/S2
Respiratory: Clear and Non-Labored Respirations
GI: Soft and Tender
Neurology: Awake, Alert, AO x 3, No Motor Deficits and Other (Cooperative. Out of bed)
Skin: Warm
General: Comfortable
Assessment
-
38-year-old man with history of alcohol abuse, readmitted for nausea vomiting, abdominal pain. Found to be again on acidosis. Likely related to alcohol and starvation. Abdominal pain likely due to alcoholic gastritis.
Metabolic acidosis-likely alcoholic/starvation-recurrent
Bicarbonate on admission was 8.
Alcohol withdrawal
Alcohol level on admission 111
Abdominal pain likely related to alcohol gastritis
Alcoholic hepatitis
Conditions present prior admission:
Alcohol abuse
History of alcohol hepatitis
Recurrent alcohol pancreatitis
GERD
Fatty liver
Diverticulosis
Chest x-ray 03/07/2024: Bilateral lung hyperinflation. Otherwise clear
Assessment and plan:
Anion gap metabolic acidosis: Somewhat improved with IV fluids.
Continue IV fluids for now normal saline 100 cc an hour. Seems to be improving with it.
Hopefully as alcohol level decreases acidosis will improve.
Repeat labs at 1 PM today. Will adjust IV fluids depending on results.
If there is worsening acidosis may need to consider bicarbonate drip. Hold for now.
-
Monitor for alcohol withdrawal
Currently sitting out of bed, eating independently.
Cooperative.
MSAS protocol
Phenobarbital taper-monitor respiratory status closely
Aspiration precautions
Thiamine/folate
Monitor for arrhythmias
Daily electrolytes and replete as necessary
-
Gastritis: Continue pantoprazole
Lipase was normal
Will advance diet once nausea and vomiting subside
-
Trend LFTs.
-
DVT prophylaxis subcu Lovenox
-
Critical care statement: A total of 31 minutes of critical care time was provided for this patient today. This includes management of unstable vital signs, evaluation of the patient at bedside, reviewing the patient's pertinent medical records
including ventilator settings, arterial blood gases, radiographs, microbiology, laboratory evaluations and discussion with primary team, critical care nursing, and respiratory therapy.
--- NOTE | 2024-03-07 11:36 | W.PN.UPDATE ---
Update Note
Progress Note Update
At this point, no critical care needs.
Will downgrade to telemetry.
Critical care team will sign off
--- NOTE | 2024-03-07 12:44 | CM ---
CM following re: discharge planning.
Reviewed pt's chart, met with pt.
Pt is a 38 year old male, admitted with primary dx of Metabolic acidosis-likely alcoholic/starvation-recurrent.
Pt reports he lives with parents and a brother in a 2SH, 2 steps to enter. [facility] [place] [facility]/o alcohol abuse. Pt reports he used to drink a gallon of whisky daily, went 3 times to inpatient D&A rehab at [facility] in 4 months. Pt reports he
usually drinks now half a pint to a pint of whisky daily. Pt expressed his agreement to meet with [facility] team. A referral to [facility] made.
D/C plan: most likely inpatient D&A rehab at [facility]. [facility] following.
CM will follow with discharge plan updates as hospitalization progresses
--- NOTE | 2024-03-07 12:57 | CON.MD ---
Consultation - Medical
-
patient seen chart reviewed. spoke with cm. this patient is known to me from [facility] in april of 2020. since that time he has had several admits for etoh rehab. he relapsed soon after. he had a run in with the law when neighbors called police when
he and family were loudly arguing when he was intoxicated. this prompted him to begin to take his addiction seriously and he engaged in a number of rehab in pt and iop stays succeeding at several months of sobriety at a time. he has been
hospitalized medically on several occasions since that time for detox as well most recently earlier this month at . he seems committed this go around to getting sober for good. he is drinking 1/2 to full pint of whiskey daily at some points
consuming much more. etoh level on admit 111. the patient does feel he is a very anxious person but acknowledging that between intoxication, withdrawal sometimes he does not know if this is secondary to that cycle or would be present even if he were
sober. he says he believes he needs to be sober for a time to reassess. he is no depressed. there is no si. there is nothing to suggest psychosis. sleep not great. appetite down. he was admitted this time for n/v/abd pain/ unable to tolerate
eating or drinking.
past psych hx patient had when seen in the past denied psych issues. today he thinks he may have an anxiety disorder see above
medical hx patient w hx pancreatitis, liver inflammation (abd cat shows fatty liver and mild edema pancreas). gerd gp 136/97. patient currently on phenobarb taper and msas. he has not had any ativan prn today. sodium normal current
transaminitis oral thrush macrocytic indices on cbc nl hgb
fh pggf etoh
substance abuse see above re etoh. denies other abuse
social resides w family. parents are supportive of him. close to [employer] [facility]. college grad from [employer]. has a degree in interdisciplinary health services. 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 has friends and a gf no hx abuse currently
not employed
mse alert 0x3 cooperative and pleasant nl speech and thought process mood neutral affect ok no si no psychosis above aver intell insight judgment improving
dx etoh use d/o r/o anxiety d/o
recommendations patient has evolved a bit since last seen when he was rather disparaging of therapy. he seems to realize at this point he needs help to get sober and has been willing for the past couple of years to participate. he has not yet
achieved senior care sobriety but is willing to continue to work towards it. parents favor in patient. he agrees to consider. [facility] to see. for now phenobarb taper and msas. psych iwll follow
[2024-03-07] MEDS: NSS (PRESERVATIVE FREE) 10 ML IV (13:11)
--- NOTE | 2024-03-07 13:59 | W.PN.HOSP.TC ---
Today's Communication/Plan
-
see outlined plan
transfer to floors
Assessment / Plan
Assessment / Plan
Assessment:
Metabolic acidosis-likely alcoholic + starvation ketoacidosis-recurrent
- bicarbonate on admission was 8
- continue IVF
- monitor repeat labs
- diet: advance to regular, monitor Mag/Phos for refeeding syndrome concerns
Hyperkalemia
- monitor BMP
Mild acute alcohol withdrawal
- MSAS protocol
Alcohol gastritis
Hx of GERD
- continue PPI
Hx of Chronic Alcoholism
Hx of Alcoholic hepatitis (underlying history of fatty liver)
HX of Alcoholic pancreatitis
- psych following; CM following for resources
- continue MV/Thiamine/Folate
DVT ppx: SC Heparin
Code: Full
Anticipated Discharge: Within 24 hours
Subjective/Interval History
-
Date of Service: March 07, 2024
denies any significant withdrawal symptoms at present
Objective Data
-
Labs:
Laboratory Results
03/07/24 03/07/24
02:45 13:00
WBC 8.1
Hgb 15.8
Hct 45.6
Plt Count 182 D
PT 14.6
INR 1.15
APTT 27.5
Sodium 134 L Pending
Potassium 5.2 H Pending
Chloride 99 Pending
Carbon Dioxide 14 L* Pending
BUN 6 L Pending
Creatinine 0.8 Pending
Glucose 127 H Pending
Calcium 8.9 Pending
Total Bilirubin 1.1
AST 73 H
ALT 52 H
Alkaline Phosphatase 130 H
Vital Signs:
Vital Signs
Temp Pulse Resp BP Pulse Ox
98 F 93 18 132/85 100
03/07/24 10:39 03/07/24 13:00 03/07/24 13:00 03/07/24 13:00 03/07/24 13:00
I&O
03/06/24 03/07/24 03/08/24
06:59 06:59 06:59
Intake Total 2572.2 / 2672.2 1759
Output Total 600 / 600
Balance 1972.2 / 2.2 1759
Physical Exam
-
General: No Apparent Distress
HEENT: Normocephalic and Atraumatic
Respiratory: Negative Wheezes or Rales
Cardiac: Regular Rhythm and S1/S2
GI: Soft
Genito-urinary: No Costovertebral Tender
Musculoskeletal: No Edema
Neuro: AO x 3
Psych: Calm
Data Reviewed
-
Total Time Spent with Patient (in minutes): 41
Labs: Labs Reviewed by me
[2024-03-07 15:39] LABS: Blood Urea Nitrogen 4 mg/dl (9-20); Calcium 8.7 mg/dl (8.4-10.2); Carbon Dioxide 23 mmol/L (22-30); Chloride 100 mmol/L (98-107); Estimated Creatinine Clearance > 125 ml/min; Glucose 115 mg/dl (70-99); Magnesium 1.9 mg/dl (1.6-2.3); Phosphorus 0.8 mg/dl (2.5-4.5); Potassium 3.5 mmol/L (3.5-5.1); Sodium 133 mmol/L (135-145); eGFR > 60.00
[2024-03-07] MEDS: POTASSIUM PHOSPHATE 259.0909 MEQ IV (16:55)
[2024-03-07] MEDS: LOVENOX 40 MG SC (17:24)
[2024-03-07] MEDS: NEUTRA-PHOS POWDER PACKET 250 MG PO ×2 (17:24→22:07)
--- NOTE | 2024-03-07 17:49 | TRANSFER ---
Report called to [facility] for room 405-1. Pt to be transported via W/C.
--- NOTE | 2024-03-07 18:25 | PTCARENOTE ---
pt. arrived via wheelchair from ICU, no c/o pain, VSS, call lora within reach.
[2024-03-08] MEDS: NSS 1000 IV (03:28)
[2024-03-08 03:38] VITALS: BP 123/87
[2024-03-08 07:35] VITALS: BP 131/87
[2024-03-08 08:23] LABS: % Eosinophils 0.7 % (0-6); % Immature Granulocytes 0.2 % (0-0.5); % Lymphocytes 37.9 % (20.5-51.1); % Monocytes 15.3 % (1.7-9.3); % Neutrophils 44.9 % (42.2-75.2); Absolute Lymphocytes 1.6 10^3/uL (1.2-3.4); Absolute Monocytes 0.6 10^3/uL (0.1-0.6); Absolute Neutrophils 1.9 10^3/uL (1.4-6.5); Hematocrit 43.2 % (39.0-52.0); Hemoglobin 15.4 g/dL (13.0-18.0); Mean Corp Hgb Conc. 35.6 g/dL (33.0-37.0); Mean Corpuscular Hgb 33.3 pg (27.0-31.0); Mean Corpuscular Volume 93.3 fL (80.0-94.0); Mean Platelet Volume 10.2 fL (7.4-10.4); Nucleated Red Blood Cells % 0 % (-); Platelet Count 149 10^3/uL (130-400); Red Blood Cell Count 4.63 10^6/uL (4.70-6.10); Red Cell Dist. Width 13.3 % (11.5-14.5); White Blood Cell Count 4.2 10^3/uL (4.8-10.8)
[2024-03-08 08:50] LABS: ALT (SGPT) 44 U/L (0-50); AST (SGOT) 76 U/L (17-59); Albumin 3.4 g/dl (3.5-5.0); Alkaline Phosphatase 97 U/L (38-126); Blood Urea Nitrogen < 2 mg/dl (9-20); Calcium 8.5 mg/dl (8.4-10.2); Carbon Dioxide 28 mmol/L (22-30); Chloride 100 mmol/L (98-107); Estimated Creatinine Clearance > 125 ml/min; Glucose 83 mg/dl (70-99); Magnesium 1.7 mg/dl (1.6-2.3); Phosphorus 2.2 mg/dl (2.5-4.5); Potassium 3.7 mmol/L (3.5-5.1); Sodium 137 mmol/L (135-145); eGFR > 60.00
[2024-03-08] MEDS: THIAMINE INJECTION 200 MG IV (08:58)
[2024-03-08] MEDS: MYCOSTATIN ORAL SUSPENSION 5 ML PO ×2 (08:58→12:13)
[2024-03-08] MEDS: PHENOBARBITAL 97.5 MG IV (08:58)
[2024-03-08] MEDS: MAGNESIUM OXIDE 400 MG PO (08:58)
[2024-03-08] MEDS: NSS (PRESERVATIVE FREE) 10 ML IV (08:59)
[2024-03-08] MEDS: NEUTRA-PHOS POWDER PACKET 250 MG PO ×2 (08:59→12:13)
[2024-03-08] MEDS: FOLVITE 1 MG PO (08:59)
[2024-03-08] MEDS: PROTONIX IV 40 MG IV (08:59)
--- NOTE | 2024-03-08 09:29 | W.PN.HOSP.TC ---
Addendum entered and electronically signed by Olga Salgado MD 03/08/24 16:20:
More than 30 minutes spent in discharge including
Final examination of the patient
Summarizing hospital stay
Instructions for continuing care to all relevant caregivers
Preparation of discharge records, prescriptions, and referral forms
Total time spent (in minutes): 41
Original Note:
Today's Communication/Plan
-
repeat PM labs if stable, likely DC if tolerating regular diet
[facility] to visit patient today
Assessment / Plan
Assessment / Plan
Assessment:
Metabolic acidosis-likely alcoholic + starvation ketoacidosis-recurrent
- bicarbonate on admission was 8; resolved with IVF
- diet: advance to regular, monitor Mag/Phos for refeeding syndrome concerns
- on phos replacement and received IV
- repeat IV today
- repeat labs 4pm
Hyperkalemia
- monitor BMP
Mild acute alcohol withdrawal
- MSAS protocol, score currently 0 on phenobarbital
Alcohol gastritis
Hx of GERD
- continue PPI
Hx of Chronic Alcoholism
Hx of Alcoholic hepatitis (underlying history of fatty liver)
HX of Alcoholic pancreatitis
- psych following; CM following for resources. [facility] notified.
- continue MV/Thiamine/Folate
Possible oral thrush
- on Nystatin S+S x 14 total days
DVT ppx: Lovenox
Code: Full
Anticipated Discharge: Within 24 hours
Subjective/Interval History
-
Date of Service: March 08, 2024
tolerating full liquids
denies any complaints
Objective Data
-
Labs:
Laboratory Results
03/08/24
07:38
WBC 4.2 L
Hgb 15.4
Hct 43.2
Plt Count 149
Sodium 137
Potassium 3.7
Chloride 100
Carbon Dioxide 28
BUN < 2 L
Creatinine 0.7
Glucose 83
Calcium 8.5
Total Bilirubin 1.0
AST 76 H
ALT 44
Alkaline Phosphatase 97
Vital Signs:
Vital Signs
Temp Pulse Resp BP Pulse Ox
98.3 F 78 16 131/87 97
03/08/24 07:35 03/08/24 07:35 03/08/24 07:35 03/08/24 07:35 03/08/24 07:35
I&O
03/07/24 03/08/24 03/09/24
06:59 06:59 06:59
Intake Total 2572.2 / 2672.2 2460 / 2460
Output Total 600 / 600 1440 / 1440
Balance 1972.2 / 2072.2 1020 / 1020
Physical Exam
-
General: No Apparent Distress
HEENT: Normocephalic and Atraumatic
Respiratory: Negative Wheezes
Cardiac: Regular Rhythm
GI: Soft
Musculoskeletal: No Cyanosis
Neuro: AO x 3
Hematologic / Lymphatic: No Lymphadenopathy
Psych: Calm
Data Reviewed
-
Total Time Spent with Patient (in minutes): 41
Labs: Labs Reviewed by me
--- NOTE | 2024-03-08 09:34 | CM ---
Patient transferred to [facility]. Call to [facility] (Jeff) to confirm he has referral and will be seeing Walt today.
Plan for [facility] visit with Walt today to discuss possible ETOH rehab/counseling services.
[2024-03-08] MEDS: POTASSIUM PHOSPHATE 259.0909 MEQ IV (10:16)
[2024-03-08 10:42] VITALS: BMI 20.8
--- NOTE | 2024-03-08 11:14 | W.PN.UPDATE ---
Update Note
Progress Note Update
Patient is in good spirits, pleasant and cooperative. No symptoms of withdrawal noted, no cognitive deficits.
He has been through several rehabs and OP treatments; he states he does well but than feels he already knows what the therapist will say and starts feeling bored and starts drinking again. He also feels that he may be self medicating with alcohol to
deal with his anxiety; was tried on Zoloft but it apparently did not help.
At this point he wants to have OP psychiatric F/U as well as OP treatment for SA.
I discussed with him several strategies to maintain sobriety.
[2024-03-08 11:20] VITALS: BP 133/86
--- NOTE | 2024-03-08 13:56 | CM ---
Jeff from [facility] met with Walt today to discuss resources for ETOH cessation. Jeff has known Walt for some time; provided him with outpatient resources at [facility], discussed MAT as an option and Walt may consider vivitrol or
another form of MAT. Support Provided.
Psychiatry has been involved in support for Walt during hospitalization; He intends to follow up with an outpatient psychiatrist following discharge.
Plan: Discharge to home with outpatient services at [facility] and to obtain psychiatric care as outpatient.
[2024-03-08 15:37] VITALS: BP 132/96
[2024-03-08 15:52] LABS: Blood Urea Nitrogen < 2 mg/dl (9-20); Calcium 9.4 mg/dl (8.4-10.2); Carbon Dioxide 29 mmol/L (22-30); Chloride 95 mmol/L (98-107); Estimated Creatinine Clearance > 125 ml/min; Glucose 86 mg/dl (70-99); Magnesium 1.6 mg/dl (1.6-2.3); Phosphorus 3.5 mg/dl (2.5-4.5); Potassium 3.7 mmol/L (3.5-5.1); Sodium 135 mmol/L (135-145); eGFR > 60.00
--- NOTE | 2024-03-08 16:02 | W.DS.TRANS ---
DC Summary - Telephone Advice Nurse
-
Discharge Instructions:
Discharge Diagnosis/Procedures acute Alcohol intake, mild withdrawal,
electrolyte disturbances
Diet Regular
Activity As tolerated
Instructions:
Stand-Alone Forms:
Changes to Home Medications: No
Discharge Medications:
DC Medications w/original date entered in [facility]
multivitamin with folic acid 400 mcg tablet (Tab-A-Bernie) 1 tab PO DAILY Supplement 10/03/21
ascorbic acid (vitamin C) 500 mg tablet (Vitamin C) 500 mg PO DAILY Supplement 02/11/24
cholecalciferol (vitamin D3) 25 mcg (1,000 unit) tablet (Vitamin D3) 25 mcg PO DAILY Supplement 02/11/24
cyanocobalamin (vitamin B-12) 1,000 mcg tablet 1,000 mcg PO DAILY Supplement 02/11/24
folic acid 1 mg tablet 1 mg PO DAILY Supplement 02/11/24
magnesium oxide 400 mg PO DAILY Supplement 02/11/24
milk thistle 175 mg tablet 175 mg PO DAILY Supplement 02/11/24
turmeric 400 mg capsule 400 mg PO DAILY Supplement 02/11/24
thiamine HCl (vitamin B1) 100 mg tablet 100 mg PO DAILY Supplement 03/06/24
nystatin 100,000 unit/mL oral suspension 5 ml PO QID #240 mL 03/08/24
pantoprazole 40 mg tablet,delayed release (Protonix) 40 mg PO DAILY Gastrointestinal Issue #30 tabs 03/08/24
Home Medication Changes
Pending Results: No
Total time spent discharging patient (in min): 41
== END 2024-03-08 16:50 | disposition home or self-care (01) | DRG 897 ==
LOC: 4 EAST ACU 20:48
PROVIDERS: Clinical Nurse Specialist Family Health; Physician Assistant; ADMITTING PHYSICIAN Internal Medicine; ATTENDING PHYSICIAN Internal Medicine; CONSULT PHYSICIAN Internal Medicine Critical Care Medicine; CONSULT PHYSICIAN Psychiatry & Neurology Psychiatry; EMERGENCY PHYSICIAN Emergency Medicine; FAMILY PHYSICIAN Family Medicine
DX: F10.239 Alcohol dependence with withdrawal, unspecified (principal); E87.29 Other acidosis; B37.0 Candidal stomatitis; K70.10 Alcoholic hepatitis without ascites; K76.0 Fatty (change of) liver, not elsewhere classified; K29.20 Alcoholic gastritis without bleeding; F10.229 Alcohol dependence with intoxication, unspecified; Y90.5 Blood alcohol level of 100-119 mg/100 ml; F12.90 Cannabis use, unspecified, uncomplicated; K21.9 Gastro-esophageal reflux disease without esophagitis; E87.5 Hyperkalemia; K57.30 Diverticulosis of large intestine without perforation or abscess without bleeding; F17.200 Nicotine dependence, unspecified, uncomplicated; R07.9 Chest pain, unspecified; Z79.899 Other long term (current) drug therapy; Z87.19 Personal history of other diseases of the digestive system; Z88.2 Allergy status to sulfonamides
CPT/HCPCS: 71045; 80048; 80053; 80306; 80307; 81003; 82010; 82077; 82977; 83690; 83735; 84100; 84484; 85025; 85610; 85730; 87811; 93005; 96374; 96375; 97162; 97166; 99285

== ENCOUNTER 2024-03-27 20:54 | Inpatient (IN) | payer OTHER, SELFPAY ==
[2024-03-27] VITALS (9 sets, daily range): BP systolic 102–167; BP diastolic 60–110; BMI 21.0; BMI 21.2
[2024-03-27] MEDS: ZOFRAN ODT (ORALLY DISINTEGRATING) 4 MG PO (15:51)
[2024-03-27] MEDS: NSS 1000 IV ×2 (19:09→21:11)
[2024-03-27] MEDS: ZOFRAN 4 MG IV (19:10)
[2024-03-27 19:19] LABS: % Basophils 0.1 % (0-2); % Immature Granulocytes 0.5 % (0-0.5); % Lymphocytes 7.8 % (20.5-51.1); % Monocytes 5.4 % (1.7-9.3); % Neutrophils 86.2 % (42.2-75.2); Absolute Immature Granulocytes 0.1 10^3/uL (0-0.05); Absolute Lymphocytes 0.9 10^3/uL (1.2-3.4); Absolute Monocytes 0.6 10^3/uL (0.1-0.6); Absolute Neutrophils 9.4 10^3/uL (1.4-6.5); Hematocrit 48.9 % (39.0-52.0); Hemoglobin 17.3 g/dL (13.0-18.0); Mean Corp Hgb Conc. 35.4 g/dL (33.0-37.0); Mean Corpuscular Hgb 31.7 pg (27.0-31.0); Mean Corpuscular Volume 89.7 fL (80.0-94.0); Mean Platelet Volume 9.7 fL (7.4-10.4); Nucleated Red Blood Cells % 0 % (-); Platelet Count 309 10^3/uL (130-400); Red Blood Cell Count 5.45 10^6/uL (4.70-6.10); Red Cell Dist. Width 13.7 % (11.5-14.5); White Blood Cell Count 10.9 10^3/uL (4.8-10.8)
[2024-03-27 19:41] LABS: ALT (SGPT) 64 U/L (0-50); AST (SGOT) 76 U/L (17-59); Albumin 5.7 g/dl (3.5-5.0); Alkaline Phosphatase 158 U/L (38-126); Blood Urea Nitrogen 13 mg/dl (9-20); Calcium 10.4 mg/dl (8.4-10.2); Carbon Dioxide 10 mmol/L (22-30); Chloride 96 mmol/L (98-107); Estimated Creatinine Clearance 90 ml/min; Glucose 141 mg/dl (70-99); Lipase 53 U/L (23-300); Potassium 5.5 mmol/L (3.5-5.1); Sodium 139 mmol/L (135-145); Total Bilirubin 1.1 mg/dl (0.2-1.3); eGFR > 60.00
[2024-03-27 19:42] LABS: Alcohol None Detected
--- NOTE | 2024-03-27 20:10 | ED.GENMED ---
History of Present Illness
General
Chief Complaint: Abdominal Pain
Source: patient
Exam Limitations: none
Time Seen by Provider: 03/27/24 18:12
Nursing documentation reviewed up to this point in time: agreed with
History of Present Illness
History of Present Illness:
Patient to ED with complaint of n/v. Symptoms started overnight and continued today. States he was here last month for tx of pancreatitis. Hx of chronic alcohol use but states he has been sober since his last admission here. Started drinking
again last weekend and has been drinking all week. Radha self to ED for eval.
Past History
Past History
ED Past Medical History: Other (Alcohol abuse, reflux)
ED Past Surgical History: None
Social History
Tobacco: Smoker
Alcohol: Chronic alcoholic
Drug: Marijuana
Personal: Single
Living: with family
Employment: Employed
Family History
Family History: Other (Noncontributory)
Review of Systems
Review of Systems
Allergies reviewed?: Yes
All Other Systems: ROS reviewed and negative except as documented in HPI and ROS
Constitutional: Reports fatigue
Respiratory: Reports no symptoms
Cardiac: Reports no symptoms
ABD/GI: Reports abdominal pain, nausea and vomiting
: Reports no symptoms
Musculoskeletal: Reports no symptoms
Skin: Reports no symptoms
Neurological: Reports headache and weakness
Psychiatric: Reports no symptoms
Phy Exam
General Physical Exam
General Presentation: moderate distress
General age: appears stated age
General Skin: warm and dry
General Habitus: normal
General Mental: alert
Cardiovascular Exam
Cardiovascular Exam: regular rate/rhythm and no edema
Pulmonary Exam
Pulmonary Exam: lungs clear and no respiratory distress
Gastrointestinal Exam
Gastrointestinal Exam: normal bowel sounds, soft and no organomegaly
Palpation: generalized: Mild tenderness
Musculoskeletal Exam
Musculoskeletal Exam: full ROM and neuro vasc intact
Skin Exam
Skin Exam: normal color, warm/dry and no rash
Psychiatric Exam
Psychiatric Exam: normal mood/affect
Scores
Withdrawal Assessment of Alcohol
Withdrawal Assessment Completed?: Yes
Nausea and Vomiting: Constant nausea, frequent dry heaves and vomiting
Tactile Disturbances: None
Tremor: No tremor
Auditory Disturbances: Not present
Paroxysmal Sweats: No sweat visible
Visual Disturbances: Not present
Anxiety: Moderately anxious, or guarded, so anxiety is inferred
Headache, Fullness in Head: Very mild
Agitation: Normal activity
Orientation and clouding of sensorium: Oriented and can do serial additions
Total CIWA Score: 12
Alcohol Withdrawal Medication Recommendation: Equal to MSAS Score 5-7. Lorazepam 1mg IV or PO NOW & re-assess q2hrs
Course
Orders/Labs/Results
Orders:
Orders
03/27/24 Dinner
NPO
Allow oral meds: Yes
Allow clear liquids: Sips of Clears
03/27/24 15:50
Ondansetron Orally Disint [Zofran Odt (Orally Disintegrating)] 4 mg PO NOW STA
03/27/24 15:52
Ondansetron Orally Disint [Zofran Odt (Orally Disintegrating)] 4 mg .ROUTE .STK-MED ONE
03/27/24 18:13
Add On- LAB Urgent
Tests Added?: alcohol
03/27/24 18:15
0.9% Sodium Chloride 1000 ml [Nss] 1,000 ml IV BOLUS
03/27/24 18:44
Ondansetron Injectable [Zofran] 4 mg .ROUTE .STK-MED ONE
03/27/24 18:50
Ondansetron Injectable [Zofran] 4 mg IV NOW STA
03/27/24 19:09
Alcohol Urgent
Complete Blood Count/With Diff Urgent
Comprehensive Metabolic Panel Urgent
Lipase Urgent
03/27/24 20:08
Sodium Bicarbonate 50 meq IV NOW STA
03/27/24 20:10
0.9% Sodium Chloride 1000 ml [Nss] 1,000 ml IV BOLUS
03/27/24 20:11
Lorazepam [Ativan] 1 mg IV NOW STA
03/27/24 20:40
Admit/Transfer Patient As Directed
Co-Sign Provider:
Level of Care: Inpatient admission
Assign to:: Telemetry
Physician / Group: evaristo
Diagnosis: alcohol withdrawal
Reason for Telemetry: Arrhythmia
Date to Stop Telemetry: 03/30/24
Time to Stop Telemetry: 11:00
Reason for Hospitalization: alcohol withdrawal
Expected length of stay greater than two midnights?: Yes
ELOS- Estimated Length of Stay in days: 2
I certify the patient meets the requirements for IP care: Yes
PRN Pain Medication Management As Directed
May give lesser potent ordered pain med per pt: Yes
preference::
Protocol:: Medication orders for pain may be administered in a
manner that supports deferring to patient preference
when the pt is:
- Requesting an ordered lesser potent pain medication.
Least to most potent pain medications are defined
as: acetaminophen < NSAID < tramadol < opioids
(morphine, oxycodone, hydromorphone).
- Requesting a lesser dose of the same medication IF
ORDERED.
- Requesting a less intrusive route of administration
if both routes are prescribed by the provider (PO <
IV).
03/27/24 20:41
Code Status As Directed
Resuscitation Status: Full Code
03/27/24 21:09
Venous Blood Gas Urgent
%Oxygen/Room Air: 100/RA
03/27/24 22:00
0.9% Sodium Chloride 1000 ml [Nss] 1,000 ml Mvi, Adult [Multivitamin] 10 ml Thiamine Injection 100 mg IV 20 mls/hr
0.9% Sodium Chloride [Nss (Preservative Free)] See Protocol IV PRN PRN
FOLic ACID [Folvite] 1 mg 0.9% Sodium Chloride 50 ml [Nss] 50 ml IV DAILYPRN
Lorazepam [Ativan] 1 mg IV Q1HPRN PRN
Lorazepam [Ativan] 1 mg PO Q2HPRN PRN
Lorazepam [Ativan] 2 mg IV Q1HPRN PRN
Ondansetron Injectable [Zofran] 4 mg IV Q6HPRN PRN
Sterile Water For Inj [Sterile Water For Injection 1000 ml] 1,000 ml Sodium Bicarbonate 150 meq IV 80 mls/hr
03/27/24 22:00
Case Management Consult Once
Case Management Consult: Other
Comment: Substance abuse counseling
DIETARY CONSULT Routine
Reason for Consult: Nutrition support, possible refeeding guidelines
Activity As Directed
Activity Level: As Tolerated
MSAS SCORE As Directed
MSAS Score 0-4: Repeat MSAS every 2 hours until 0-4 for three consecutive assessments, then every 4 hours x 48
hours.
MSAS Score 5-7: For MILD withdrawl symptoms. Repeat MSAS and RASS every 2 hours
MSAS Score 8-11: For MODERATE withdrawal symptoms. Repeat MSAS and RASS every 1 hour. Consider ICU or IMU
level of care.
MSAS Score > 11: For SEVERE withdrawal symptoms. Repeat MSAS and RASS every 1 hour. Notify provider, consider
ICU level of care.
MSAS Additional Instructions: If no improvement or no decrease in score from severe to moderate within 12
hours, consult psychiatry
MSAS Notify Provider: Notify provider if patient requires more than 10 mg of Lorazepam in eight hour period.
Vital Signs As Directed
Frequency: Per unit guidelines
DX Deep Vein Thrombosis Video Routine
03/27/24 22:27
Phosphorus Urgent
03/28/24 06:00
Complete Blood Count/With Diff IN AM
Comprehensive Metabolic Panel IN AM
03/28/24 08:00
FOLic ACID [Folvite] 1 mg PO DAILY
Heparin 5,000 units SC Q12
03/30/24 11:00
DC Protocol for Telemetry ONCE
Abnormal Lab Results
03/27/24
19:09
WBC 10.9 H 10^3/uL
(4.8-10.8)
MCH 31.7 H pg
(27.0-31.0)
Abs Immat Gran (auto) 0.1 H 10^3/uL
(0-0.05)
Absolute Neuts (auto) 9.4 H 10^3/uL
(1.4-6.5)
Absolute Lymphs (auto) 0.9 L 10^3/uL
(1.2-3.4)
Neutrophils % 86.2 H %
(42.2-75.2)
Lymphocytes % 7.8 L %
(20.5-51.1)
Potassium 5.5 H mmol/L
(3.5-5.1)
Chloride 96 L mmol/L
(98-107)
Carbon Dioxide 10 L* mmol/L
(22-30)
Glucose 141 H mg/dl
(70-99)
Calcium 10.4 H mg/dl
(8.4-10.2)
AST 76 H U/L
(17-59)
ALT 64 H U/L
(0-50)
Alkaline Phosphatase 158 H U/L
(38-126)
Total Protein 9.0 H g/dl
(6.3-8.2)
Albumin 5.7 H g/dl
(3.5-5.0)
03/27/24 19:09
03/27/24 19:09
Vital Signs
Initial and Last Documented VS:
Initial Vital Signs
Temp Pulse Resp BP Pulse Ox
97.9 F 101 16 167/110 100
03/27/24 15:46 03/27/24 15:46 03/27/24 15:46 03/27/24 15:46 03/27/24 15:46
Last Documented Vital Signs
Temp Pulse Resp BP Pulse Ox
97.9 F 111 15 122/80 100
03/27/24 15:46 03/27/24 21:30 03/27/24 21:30 03/27/24 21:23 03/27/24 21:30
*Critical Care Note
Total Time (30-74mins, 75-104mins- exclusive of procedures): Not Applicable
Update Note
Update Note:
Labs reviewed - metablolic acidosis. NaHCO3, IVF ordered. Will admit to hospitalist service.
ED Attending Note
-
Portions of this chart may have been created with voice recognition software.� Occasional wrong word or��sound alike� substitutions may have occurred due to the inherent limitations of voice recognition software.
Discharge Plan
Departure
Patient Disposition: Admit
Date of Disposition: 03/27/24
Time of Disposition: 20:18
Presentation/result/management discussed w/ accepting MD/DO: Hospitalist
Patient with high blood pressure during this ER visit?: No
Condition: Fair
Discharge Problem:
Metabolic acidosis, Alcohol withdrawal
Interventions
Interventions:
*Risk Screen - Suicide Last Done: 03/27/24 15:45
*General Assessment Last Done: 03/27/24 18:36
*Neglect/Abuse Screening Last Done: 03/27/24 18:36
ED- Fall Risk Assessment Last Done: 03/27/24 18:36
*ED COVID-19 Vaccine History Last Done: 03/27/24 18:36
*Nursing Disposition Last Done: 03/27/24 21:58
LV-Hxbuiq-Jvjrvfeyfk Assessment Last Done: 03/27/24 18:36
Discharge Date and Time
Discharge Date/Time: 03/27/24 21:59
--- NOTE | 2024-03-27 20:48 | HPS.HSE ---
Family Physician
-
Family Physician:
Chief Complaint
-
nausea and vomiting
History of Present Illness
38-year-old male with past medical history of alcohol use disorder, alcoholic gastritis, alcoholic hepatitis, prior alcoholic pancreatitis, GERD presenting with nausea and vomiting which started overnight and continued today. He has also been shaky
and anxious. He has been having abdominal pain with burning radiating up the chest. He did have some coffee-ground cereal when he threw up but it was minimal.
Patient states that he has been sober and not drinking alcohol since last admission but started drinking again last weekend has been drinking all week. He drinks half a pint of whiskey per day. He does use recreational marijuana. Denies smoking
or other drugs.
Medical History
Past Medical History
Past Medical History: Reports Other (alcohol use disorder, alcoholic gastritis, alcoholic hepatitis, prior alcoholic pancreatitis, GERD)
Past Surgical History: Reports None
Social History
Tobacco: Non-smoker
Alcohol: Daily
Drug: None and Marijuana
Family History
Family History: Not pertinent
Allergies / Home Medications
Allergies reflects when Allergies were last updated in [facility].
Home Medications with original date entered in [facility]
Allergy/Medication List:
Allergies
Allergy/AdvReac Type Severity Reaction Status Date / Time
Sulfa (Sulfonamide Allergy Rash Verified 03/27/24 15:49
Antibiotics)
Home Medications
multivitamin with folic acid 400 mcg tablet (Tab-A-Bernie) 1 tab PO DAILY Supplement 10/03/21
ascorbic acid (vitamin C) 500 mg tablet (Vitamin C) 500 mg PO DAILY Supplement 02/11/24
cholecalciferol (vitamin D3) 25 mcg (1,000 unit) tablet (Vitamin D3) 25 mcg PO DAILY Supplement 02/11/24
cyanocobalamin (vitamin B-12) 1,000 mcg tablet 1,000 mcg PO DAILY Supplement 02/11/24
folic acid 1 mg tablet 1 mg PO DAILY Supplement 02/11/24
magnesium oxide 400 mg PO DAILY Supplement 02/11/24
milk thistle 175 mg tablet 175 mg PO DAILY Supplement 02/11/24
turmeric 400 mg capsule 400 mg PO DAILY Supplement 02/11/24
thiamine HCl (vitamin B1) 100 mg tablet 100 mg PO DAILY Supplement 03/06/24
nystatin 100,000 unit/mL oral suspension 5 ml PO QID #240 mL 03/08/24
pantoprazole 40 mg tablet,delayed release (Protonix) 40 mg PO DAILY Gastrointestinal Issue #30 tabs 03/08/24
Review of Systems
-
History Source: Patient
A 12 point ROS was completed and negative except as noted: Yes
Constitutional: Reports No Symptoms
EENT: Reports No Symptoms
Respiratory: Reports No Symptoms
Cardiac: Reports No Symptoms
Abdomen/GI: Reports See HPI
: Reports No Symptoms
Musculoskeletal: Reports No Symptoms
Skin: Reports No Symptoms
Neurological: Reports No Symptoms
Endocrine: Reports No Symptoms
Hematologic/Lymphatic: Reports No Symptoms
Psych: Reports No Symptoms
Physical Exam
Vital Signs
Vital Signs
Temp Pulse Resp BP Pulse Ox
97.9 F 91 14 135/97 100
03/27/24 15:46 03/27/24 18:36 03/27/24 18:36 03/27/24 18:36 03/27/24 18:36
Physical Exam
General: Well Developed, Well Nourished and No Apparent Distress
HEENT: NormoCephalic, Moist mucous membranes and Atraumatic
Respiratory: Clear
Cardiac: S1/S2 and Regular Rhythm; No Murmur or Rub
GI: Soft, Non Tender, Non Distended and Normal Bowel Sounds; No Organomegaly
Rectal: Deferred by Provider
Musculoskeletal: No Clubbing, No Cyanosis and No Edema
Skin: No Rash
Neuro: Nonfocal/grossly intact
Laboratory Results
-
03/27/24 19:09
03/27/24 19:09
Laboratory Results
Total Bilirubin 1.1 mg/dl (0.2-1.3) 03/27/24 19:09
AST 76 U/L (17-59) H 03/27/24 19:09
ALT 64 U/L (0-50) H 03/27/24 19:09
Alkaline Phosphatase 158 U/L (38-126) H 03/27/24 19:09
Lipase 53 U/L (23-300) 03/27/24 19:09
Data Reviewed
-
Lab Data: Labs Reviewed by me
Old Records: Reviewed
Impression/Plan
-
IMPRESSION:
PLAN:
# Alcohol withdrawal
# Anion gap metabolic acidosis secondary to alcoholic ketoacidosis/starvation ketosis
-Check phosphorus
-Alcohol level negative
-Bicarb drip 80cc/hr+ banana bag 20cc/hr
-Alcohol withdrawal protocol
-Thiamine and folate
-Zofran, n.p.o. with ice chips
# Mild Evelyne-Sage tear
# Alcoholic gastritis
-Lipase 53
-Minimal coffee-ground emesis
-Continue to monitor
-continue Protonix
# Transaminitis secondary to alcohol
-Continue to monitor
# Hyperkalemia secondary to hypovolemia
-Monitor with fluids
History of alcoholic pancreatitis
History of alcoholic hepatitis/hepatic steatosis
GERD
-Continue Protonix
Marijuana user
Full code
DVT prophylaxis�heparin
N.p.o. with ice chips
[2024-03-27] MEDS: ATIVAN 1 MG IV (21:17)
[2024-03-27 21:18] LABS: Venous Blood Gas HCO3 14.6 mmol/L (22-27); Venous Blood Gas pCO2 29 mmHg (35-48); Venous Blood Gas pH 7.31 (7.32-7.43); Venous Blood Gas pO2 80 mmHg (30-50)
[2024-03-27] MEDS: SODIUM BICARBONATE 50 MEQ IV (21:18)
[2024-03-27] MEDS: PROTONIX IV 40 MG IV (22:28)
[2024-03-27] MEDS: NSS (PRESERVATIVE FREE) 10 ML IV (22:29)
[2024-03-27] MEDS: MULTIVITAMIN 1011 MG IV (22:44)
[2024-03-27] MEDS: MULTIVITAMIN 1011 ML IV (22:44)
[2024-03-27] MEDS: SODIUM BICARBONATE 1150 MEQ IV (22:48)
[2024-03-27 22:56] LABS: Phosphorus 2.5 mg/dl (2.5-4.5)
--- NOTE | 2024-03-27 23:06 | VATNOTE ---
while starting 2nd IV line at N request for IV fluids, pt mentioned 2 old IV sites from last admission. One is left arm basilic vein and other is right arm median antebrachial site. both are very firm. however not red or swollen. pt states pain
only when presses on veins. right arm mab vein is quite long in firmness. Heat applied. Pt. seemed concerned about them and wondered what could be done. Instructed pt. to have Md see them tomorrow on rounds. NNell informed of what this VAT RN
observed and that heat applied to both veins.
--- NOTE | 2024-03-27 23:42 | PTCARENOTE ---
Received pt from ER @ [id number]. BAIRON Ferrer. Pt ambulatory in room. Oriented to room, call lora and plan of care.
[2024-03-28] VITALS (7 sets, daily range): BP systolic 116–137; BP diastolic 72–86
[2024-03-28 06:53] LABS: ALT (SGPT) 43 U/L (0-50); AST (SGOT) 45 U/L (17-59); Alkaline Phosphatase 106 U/L (38-126); Blood Urea Nitrogen 11 mg/dl (9-20); Calcium 8.8 mg/dl (8.4-10.2); Carbon Dioxide 20 mmol/L (22-30); Chloride 99 mmol/L (98-107); Estimated Creatinine Clearance 114 ml/min; Glucose 60 mg/dl (70-99); Potassium 3.7 mmol/L (3.5-5.1); Sodium 137 mmol/L (135-145); Total Protein 6.4 g/dl (6.3-8.2); eGFR > 60.00
[2024-03-28 07:23] LABS: % Basophils 0.3 % (0-2); % Eosinophils 2.8 % (0-6); % Immature Granulocytes 0.5 % (0-0.5); % Lymphocytes 18.8 % (20.5-51.1); % Neutrophils 63.6 % (42.2-75.2); Absolute Eosinophils 0.2 10^3/uL (0-0.7); Absolute Lymphocytes 1.5 10^3/uL (1.2-3.4); Absolute Monocytes 1.1 10^3/uL (0.1-0.6); Hematocrit 40.9 % (39.0-52.0); Mean Corp Hgb Conc. 34.2 g/dL (33.0-37.0); Mean Corpuscular Hgb 31.3 pg (27.0-31.0); Mean Corpuscular Volume 91.5 fL (80.0-94.0); Mean Platelet Volume 10.2 fL (7.4-10.4); Nucleated Red Blood Cells % 0 % (-); Platelet Count 244 10^3/uL (130-400); Red Blood Cell Count 4.47 10^6/uL (4.70-6.10); Red Cell Dist. Width 13.6 % (11.5-14.5); White Blood Cell Count 7.8 10^3/uL (4.8-10.8)
[2024-03-28] MEDS: PROTONIX IV 40 MG IV ×2 (09:33→19:36)
[2024-03-28] MEDS: NSS (PRESERVATIVE FREE) 10 ML IV ×2 (09:33→19:35)
[2024-03-28] MEDS: HEPARIN 5000 UNITS SC ×2 (09:33→19:35)
[2024-03-28] MEDS: FOLVITE 1 MG PO (09:34)
--- NOTE | 2024-03-28 10:17 | CM ---
Patient seen bedside, initial assessment completed. Patient resides with his mother, father, and brother in a multiple story home, two steps to enter. Patient denies DME, VN, or SNF, has been to [facility] inpatient rehab in the past. Patient
looking for new PCP, previous with Dr. Abraham. CM will provide list. Patient pharmacy [facility].
CM received consult for substance use counseling, patient reports he has several contacts from [facility] and will reach out when ready. Patient is thinking about inpatient rehab but undecided. CM will continue to follow for all discharge planning needs.
Plan; home no needs, patient undecided regarding inpatient rehab at this time.
[2024-03-28] MEDS: DIFLUCAN 200 MG PO (10:48)
[2024-03-28] MEDS: VITAMIN B1 100 MG PO ×2 (10:48→19:34)
[2024-03-28] MEDS: SODIUM BICARBONATE 1150 MEQ IV (10:53)
[2024-03-28] MEDS: ATIVAN 0.5 MG IV (11:35)
[2024-03-28] MEDS: NSS (PRESERVATIVE FREE) 0.25 ML IV (11:35)
--- NOTE | 2024-03-28 13:36 | VATNOTE ---
Left arm basillic and right arm median antebrachial sites pt states from previous admission were re-assessed. Pt states feels better than yesterday; veins remain firm. Warm compress provided for both veins
--- NOTE | 2024-03-28 14:11 | W.PN.HOSP.TC ---
Today's Communication/Plan
-
monitor for withdrawal
check qtc
provide fluconazole
Assessment / Plan
Assessment / Plan
1. Alcohol withdrawal
Anion gap metabolic acidosis
-Patient was just discharged few weeks back after treated for alcohol withdrawal, patient was sober and then again had relapse with drinking over weekend
-Blood alcohol level negative in ER
-Patient MSAS score has been low overnight, have not required any Ativan, continue monitoring
-Patient able to tolerate oral intake, switch to oral thiamine/folate
2. Upper GI bleed
Evelyne Sage tear
History of alcoholic gastritis
-Patient had minimal coffee-ground emesis before admission
-Hemoglobin remained stable
-Have some nausea/reflux without any overt upper GI bleed
-Maintain on IV twice daily Protonix with Tums as needed
-Diet as tolerated
3. Hypoglycemia
-Due to decreased oral intake and with n/v
-Monitor and provide dextrose IV if needed
4. Oral thrush
-Patient did not finish course of oral nystatin
-Will provide oral fluconazole for now
-Check QTc
History of alcoholic pancreatitis
History of alcoholic hepatitis
Hepatic steatosis
History of marijuana use
Gastroesophageal reflux disease
Full code
DVT prophylaxis�heparin
Total time spent 53-minute
Anticipated Discharge: 24 - 48 hours
Subjective/Interval History
-
Date of Service: March 28, 2024
have some anxiety symptoms
no significant tremors
reported having some nausea/reflux symptoms
Objective Data
-
Labs:
Laboratory Results
03/28/24
04:38
WBC 7.8
Hgb 14.0
Hct 40.9
Plt Count 244 D
Sodium 137
Potassium 3.7 D
Chloride 99
Carbon Dioxide 20 L
BUN 11
Creatinine 0.8
Glucose 60 L
Calcium 8.8 D
Total Bilirubin 1.0
AST 45
ALT 43
Alkaline Phosphatase 106
Vital Signs:
Vital Signs
Temp Pulse Resp BP Pulse Ox
98.1 F 87 18 137/86 99
03/28/24 11:02 03/28/24 11:02 03/28/24 11:02 03/28/24 11:02 03/28/24 11:02
I&O
03/27/24 03/28/24 03/29/24
06:59 06:59 06:59
Intake Total 1000 / 1000
Output Total 400 / 400
Balance 600 / 600
Review of Systems
-
Respiratory: Reports No Symptoms
Cardiac: Reports No Symptoms
Abdomen/GI: Reports Abdominal Pain and GERD
Physical Exam
-
General: No Apparent Distress and Comfortable
HEENT: Negative Oxygen
Respiratory: Clear to Auscultation
Cardiac: Regular Rhythm and S1/S2; Negative Murmur or Rub
GI: Soft, Nontender, Nondistended and Normal Bowel Sounds
Musculoskeletal: No Edema
Neuro: Awake, Alert, Oriented, No Motor Deficits and Nonfocal/Grossly Intact
Psych: Calm
[2024-03-28] MEDS: ZOFRAN 4 MG IV (18:17)
[2024-03-28] MEDS: ATIVAN 1 MG PO (23:43)
[2024-03-29 03:50] VITALS: BP 124/78
[2024-03-29 07:00] VITALS: BP 127/93
[2024-03-29 07:17] LABS: Blood Urea Nitrogen 7 mg/dl (9-20); Calcium 9.5 mg/dl (8.4-10.2); Carbon Dioxide 29 mmol/L (22-30); Chloride 98 mmol/L (98-107); Estimated Creatinine Clearance 101 ml/min; Glucose 87 mg/dl (70-99); Phosphorus 2.4 mg/dl (2.5-4.5); Potassium 3.6 mmol/L (3.5-5.1); Sodium 138 mmol/L (135-145); eGFR > 60.00
[2024-03-29 08:18] VITALS: BP 127/93
[2024-03-29] MEDS: VITAMIN B1 100 MG PO (08:21)
[2024-03-29] MEDS: DIFLUCAN 100 MG PO (08:21)
[2024-03-29] MEDS: HEPARIN 5000 UNITS SC (08:22)
[2024-03-29] MEDS: NSS (PRESERVATIVE FREE) 10 ML IV (08:22)
[2024-03-29] MEDS: PROTONIX IV 40 MG IV (08:23)
[2024-03-29] MEDS: FOLVITE 1 MG PO (08:32)
[2024-03-29 10:11] VITALS: BMI 21.2
[2024-03-29 11:00] VITALS: BP 127/88
--- NOTE | 2024-03-29 11:37 | CM ---
Patient seen bedside with mother, reports no concerns to CM at this time. CM provided list of primary care providers/residency clinic. CM will continue to follow for all discharge planning needs.
Plan; home with family, has [facility] information.
[2024-03-29 12:05] VITALS: BP 127/88
--- NOTE | 2024-03-29 14:54 | W.DCSUMMARY ---
Discharge Summary
Discharge Data
Date of Admission: 03/27/24
Date of Discharge: 03/29/24
-
Pending Results: No
Hospital Course
Discharging Physician : Dr Rad Glasgow
Disposition : Home
Primary care physician : Unknown
Principal Discharge diagnosis :
Alcohol withdrawal
Nausea/vomiting
Alcoholic gastritis
Oral thrush
Chronic Discharge diagnosis :
History of upper gestational bleed from Evelyne-Sage tear
History of alcoholic pancreatitis
History of alcohol hepatitis
Hepatic steatosis
History of marijuana use
Hospital Course :
Patient is a 38-year-old male with above-mentioned past medical history came to ER for having new onset of nausea vomiting and feeling anxious. Patient was discharged from hospital earlier in the month after treatment of alcohol withdrawal and
patient was sober for some time. Unfortunately patient had relapse and over weekend patient was drinking again. Patient started having some nausea vomiting and noted to having some tremors and getting anxious. Came into ER for concern of alcohol
withdrawal. Patient was started on MSAS monitoring with as needed Ativan to help with withdrawal symptoms. Patient required 48 hours of monitoring and minimal Ativan use. Discharge patient instructed to continue following with [facility]
provided on previous visits.
Patient also had some reflux symptoms and possibly alcoholic gastritis, patient have undergone EGD in the past and no diagnosis of peptic ulcer disease. Patient was provided twice daily Protonix to take at home. Patient will need to follow-up with
GI in office if have persistent reflux issues.
Patient also had oral thrush which has not improved with nystatin in the past, patient was provided 7 days of oral fluconazole therapy.
Important imaging findings :
None
Procedure findings :
None
Discharge Plan
-
Patient Disposition: Home (Routine Discharge)
Discharge Diagnosis/Procedures: Alcohol use disorder, Alcohol withdrawal, GERD
Condition: Fair
Diet: Regular
Activity: As tolerated
Driving Restrictions: As prior to admission
Bathing Restrictions: OK to Shower
Referrals:
NONE,* [Family Provider] -
Prescriptions:
New
fluconazole 100 mg Tablet
100 mg PO DAILY Qty: 5 0RF
pantoprazole 40 mg tablet,delayed release (DR/EC)
See Rx Instructions .ROUTE .COMPLEX Qty: 60 1RF
Rx Instructions:
Take 1 Tab Twice daily for 4 weeks THEN
Take 1 Tab daily
Continued
multivitamin with folic acid [Tab-A-Bernie] 1 TABLET tablet
1 tab PO DAILY
milk thistle 175 mg Tablet
175 mg PO DAILY
cyanocobalamin (vitamin B-12) 1,000 mcg Tablet
1,000 mcg PO DAILY
ascorbic acid (vitamin C) [Vitamin C] 500 mg Tablet
500 mg PO DAILY
folic acid 1 mg Tablet
1 mg PO DAILY
cholecalciferol (vitamin D3) [Vitamin D3] 25 mcg (1,000 unit) Tablet
25 mcg PO DAILY
magnesium oxide 400 mg magnesium Tablet
400 mg PO DAILY
turmeric 400 mg Capsule
400 mg PO DAILY
thiamine HCl (vitamin B1) 100 mg Tablet
100 mg PO DAILY
nystatin 100,000 unit/mL Suspension
5 ml PO QID Qty: 240 0RF
pantoprazole [Protonix] 40 mg tablet,delayed release (DR/EC)
40 mg PO DAILY Qty: 30 0RF
Discharge Orders:
Discharge Patient (As Directed); Ordered 03/29/24
Ordered By: Rad Glasgow
Discharge Date and Time
Discharge Date/Time: 03/29/24 12:44
Print Language: BELIZEAN
== END 2024-03-29 12:44 | disposition home or self-care (01) | DRG 896 ==
LOC: 4 WEST ACU 20:54
PROVIDERS: Emergency Medicine; ADMITTING PHYSICIAN Hospitalist; ATTENDING PHYSICIAN Hospitalist; EMERGENCY PHYSICIAN Emergency Medicine
DX: F10.139 Alcohol abuse with withdrawal, unspecified (principal); K22.6 Gastro-esophageal laceration-hemorrhage syndrome; E87.29 Other acidosis; B37.0 Candidal stomatitis; K70.10 Alcoholic hepatitis without ascites; K76.0 Fatty (change of) liver, not elsewhere classified; K29.20 Alcoholic gastritis without bleeding; E87.5 Hyperkalemia; E86.1 Hypovolemia; F17.200 Nicotine dependence, unspecified, uncomplicated; F12.90 Cannabis use, unspecified, uncomplicated; K21.9 Gastro-esophageal reflux disease without esophagitis; R25.1 Tremor, unspecified; Z79.899 Other long term (current) drug therapy; Z87.19 Personal history of other diseases of the digestive system; Z88.2 Allergy status to sulfonamides
CPT/HCPCS: 80048; 80053; 82077; 82805; 83690; 83735; 84100; 85025; 93005; 96361; 96374; 96375; 99284

== ENCOUNTER 2024-04-18 03:27 | Inpatient (IN) | payer OTHER, SELFPAY ==
[2024-04-17 19:44] VITALS: BMI 21.4
[2024-04-17 20:07] VITALS: BP 162/97
--- NOTE | 2024-04-17 22:38 | ED.GENMED ---
History of Present Illness
General
Chief Complaint: Alcohol Problem
Time Seen by Provider: 04/17/24 22:19
History of Present Illness
History of Present Illness:
38-year-old male with history of alcohol abuse emergency department for evaluation of withdrawal symptoms. He reports intractable nausea and vomiting associated with generalized tremors. His last drink was last night. He was admitted to this
hospital under 1 month ago for alcohol withdrawal. He is interested in being placed in inpatient rehab. Denies SI or HI.
Past History
Past History
ED Past Medical History: Other (Alcohol abuse, reflux)
ED Past Surgical History: None
Social History
Tobacco: Smoker
Alcohol: Chronic alcoholic
Drug: Marijuana
Personal: Single
Living: with family
Employment: Employed
Family History
Family History: Other (Noncontributory)
Review of Systems
Review of Systems
Allergies reviewed?: Yes
All Other Systems: ROS reviewed and negative except as documented in HPI and ROS
Phy Exam
Physical Exam
Physical Exam:
GEN: Well appearing, NAD, WDWN
HEENT: Oral mucosa moist, no scleral icterus
Cardiac: Regular rate
Lung: No respiratory distress, no tachypnea
MSK: No gross deformity or injuries
Skin: Good color, no pallor or jaundice, no rashes
Neuro: AO x3, moves all extremities freely
Psych: Calm, cooperative
Scores
Withdrawal Assessment of Alcohol
Withdrawal Assessment Completed?: Yes
Nausea and Vomiting: Intermittent nausea with dry heaves
Tactile Disturbances: None
Tremor: Not visible, but can be felt fingertip to fingertip
Auditory Disturbances: Not present
Paroxysmal Sweats: No sweat visible
Visual Disturbances: Not present
Anxiety: Moderately anxious, or guarded, so anxiety is inferred
Headache, Fullness in Head: Not present
Agitation: Normal activity
Orientation and clouding of sensorium: Oriented and can do serial additions
Total CIWA Score: 9
Alcohol Withdrawal Medication Recommendation: Equal to MSAS Score 5-7. Lorazepam 1mg IV or PO NOW & re-assess q2hrs
Course
Orders/Labs/Results
Orders:
Orders
04/17/24 20:11
ECG [Electrocardiogram (*1)] Urgent
Reason for Study: Tachycardia
Cardiology Consult: Unknown
Alcohol Urgent
Complete Blood Count/With Diff Urgent
Comprehensive Metabolic Panel Urgent
Lipase Urgent
04/17/24 20:12
EKG- Treatment ONCE
04/17/24 22:37
Lorazepam [Ativan] 1 mg IV NOW STA
04/18/24 01:00
0.9% Sodium Chloride 1000 ml [Nss] 1,000 ml Mvi, Adult [Multivitamin] 10 ml Thiamine Injection 100 mg IV 1,000 mls/hr
04/18/24 01:49
Venous Blood Gas Urgent
%Oxygen/Room Air: 97
04/18/24 02:06
0.9% Sodium Chloride 1000 ml [Nss] 1,000 ml IV BOLUS
Abnormal Lab Results
04/18/24
00:03
MCH 31.5 H pg
(27.0-31.0)
Absolute Neuts (auto) 7.7 H 10^3/uL
(1.4-6.5)
Absolute Lymphs (auto) 0.7 L 10^3/uL
(1.2-3.4)
Neutrophils % 86.0 H %
(42.2-75.2)
Lymphocytes % 7.4 L %
(20.5-51.1)
Potassium 5.3 H mmol/L
(3.5-5.1)
Chloride 96 L mmol/L
(98-107)
Carbon Dioxide 13 L* mmol/L
(22-30)
Glucose 134 H mg/dl
(70-99)
Calcium 10.7 H mg/dl
(8.4-10.2)
Alkaline Phosphatase 132 H U/L
(38-126)
Total Protein 9.0 H g/dl
(6.3-8.2)
Albumin 5.7 H g/dl
(3.5-5.0)
04/18/24 00:03
04/18/24 00:03
Vital Signs
Initial and Last Documented VS:
Initial Vital Signs
Temp Pulse Resp BP Pulse Ox
97.9 F 71 20 162/97 98
04/17/24 20:07 04/17/24 20:07 04/17/24 20:07 04/17/24 20:07 04/17/24 20:07
Last Documented Vital Signs
Temp Pulse Resp BP Pulse Ox
97.9 F 107 19 146/106 100
04/17/24 20:07 04/18/24 01:15 04/18/24 01:15 04/18/24 01:00 04/18/24 01:15
MDM/Problems Addressed
MDM/Problems Addressed:
38-year-old male presents with acute alcohol withdrawal. His withdrawal symptoms are mild to moderate however he has noted to have significant anion gap likely from GI losses from vomiting. He was seen by [facility] and declined inpatient rehab at
this time. Will admit to the hospitalist service for further IV hydration given metabolic acidosis
*Critical Care Note
Total Time (30-74mins, 75-104mins- exclusive of procedures): Not Applicable
ED Attending Note
-
Portions of this chart may have been created with voice recognition software.� Occasional wrong word or��sound alike� substitutions may have occurred due to the inherent limitations of voice recognition software.
Discharge Plan
Departure
Patient Disposition: Admit
Date of Disposition: 04/18/24
Time of Disposition: 02:10
Presentation/result/management discussed w/ accepting MD/DO: Hospitalist
Discharge Problem:
Alcohol withdrawal, Metabolic acidosis
Prescriptions:
No Action
multivitamin with folic acid [Tab-A-Bernie] 1 TABLET tablet
1 tab PO DAILY
milk thistle 175 mg Tablet
175 mg PO DAILY
cyanocobalamin (vitamin B-12) 1,000 mcg Tablet
1,000 mcg PO DAILY
ascorbic acid (vitamin C) [Vitamin C] 500 mg Tablet
500 mg PO DAILY
folic acid 1 mg Tablet
1 mg PO DAILY
cholecalciferol (vitamin D3) [Vitamin D3] 25 mcg (1,000 unit) Tablet
25 mcg PO DAILY
magnesium oxide 400 mg magnesium Tablet
400 mg PO DAILY
turmeric 400 mg Capsule
400 mg PO DAILY
thiamine HCl (vitamin B1) 100 mg Tablet
100 mg PO DAILY
nystatin 100,000 unit/mL Suspension
5 ml PO QID Qty: 240 0RF
pantoprazole [Protonix] 40 mg tablet,delayed release (DR/EC)
40 mg PO DAILY Qty: 30 0RF
fluconazole 100 mg Tablet
100 mg PO DAILY Qty: 5 0RF
pantoprazole 40 mg tablet,delayed release (DR/EC)
See Rx Instructions .ROUTE .COMPLEX Qty: 60 1RF
Rx Instructions:
Take 1 Tab Twice daily for 4 weeks THEN
Take 1 Tab daily
Referrals:
UNKNOWN - PT DOES,NOT KNOW [Family Provider] -
Interventions
Interventions:
*Risk Screen - Suicide Last Done: 04/17/24 19:46
*General Assessment Last Done: 04/17/24 20:07
*Neglect/Abuse Screening Last Done: 04/17/24 19:46
ED- Fall Risk Assessment Last Done: 04/17/24 20:07
*ED COVID-19 Vaccine History Last Done: 04/17/24 20:07
Discharge Date and Time
Print Language: GERMAN
[2024-04-17 23:14] VITALS: BP 144/91
[2024-04-18] VITALS (11 sets, daily range): BP systolic 118–157; BP diastolic 71–113
[2024-04-18] MEDS: ATIVAN 1 MG IV ×2 (00:12→22:07)
[2024-04-18 00:32] LABS: ALT (SGPT) 38 U/L (0-50); AST (SGOT) 49 U/L (17-59); Albumin 5.7 g/dl (3.5-5.0); Alkaline Phosphatase 132 U/L (38-126); Blood Urea Nitrogen 13 mg/dl (9-20); Calcium 10.7 mg/dl (8.4-10.2); Carbon Dioxide 13 mmol/L (22-30); Chloride 96 mmol/L (98-107); Estimated Creatinine Clearance 92 ml/min; Glucose 134 mg/dl (70-99); Lipase 57 U/L (23-300); Potassium 5.3 mmol/L (3.5-5.1); Sodium 139 mmol/L (135-145); Total Bilirubin 1.2 mg/dl (0.2-1.3); eGFR > 60.00
[2024-04-18 00:34] LABS: Alcohol None Detected
[2024-04-18 00:42] LABS: % Basophils 0.2 % (0-2); % Immature Granulocytes 0.4 % (0-0.5); % Lymphocytes 7.4 % (20.5-51.1); Absolute Lymphocytes 0.7 10^3/uL (1.2-3.4); Absolute Monocytes 0.5 10^3/uL (0.1-0.6); Absolute Neutrophils 7.7 10^3/uL (1.4-6.5); Hematocrit 47.7 % (39.0-52.0); Hemoglobin 16.5 g/dL (13.0-18.0); Mean Corp Hgb Conc. 34.6 g/dL (33.0-37.0); Mean Corpuscular Hgb 31.5 pg (27.0-31.0); Mean Platelet Volume 9.9 fL (7.4-10.4); Nucleated Red Blood Cells % 0 % (-); Platelet Count 394 10^3/uL (130-400); Red Blood Cell Count 5.24 10^6/uL (4.70-6.10); Red Cell Dist. Width 13.2 % (11.5-14.5)
[2024-04-18] MEDS: MULTIVITAMIN 1011 ML IV (01:01)
[2024-04-18] MEDS: MULTIVITAMIN 1011 MG IV (01:01)
[2024-04-18] MEDS: NSS 1000 IV (02:14)
[2024-04-18 02:21] LABS: Venous Blood Gas B.E. -9.2 mmol/L (-4 to +4); Venous Blood Gas HCO3 16.3 mmol/L (22-27); Venous Blood Gas O2 Sat % 80.6 %; Venous Blood Gas pCO2 34 mmHg (35-48); Venous Blood Gas pH 7.29 (7.32-7.43); Venous Blood Gas pO2 43 mmHg (30-50)
[2024-04-18 02:23] LABS: Venous Blood Gas O2 Therapy 97
--- NOTE | 2024-04-18 03:27 | HPS.HSE ---
Family Physician
-
Family Physician: NOT KNOW UNKNOWN - PT DOES
Chief Complaint
-
This patient with history of alcohol dependence, alcohol withdrawal, thrush presents to the emergency department with persistent nausea vomiting after having last alcohol at around 8 PM on .
History of Present Illness
Patient was recently discharged from the hospital on March 29 for alcohol withdrawal. He reported that he abstained from alcohol for about 2 weeks but then started drinking again. Reports drinking about a pint of hard liquor daily over the
last 2 weeks on a regular basis. Has limited p.o. intake otherwise. Reports last drink was at 8 PM on . Patient started having nausea at 3 PM on Saturday. And then later on during the day he had incessant vomiting and was unable to keep
anything down. Denies abdominal pain. Denies flank pain. It has been no fevers or chills. Denies any coingestions.
In the emergency department the patient was afebrile and hemodynamically stable. CBC was unremarkable. Lipase was negative. LFTs unremarkable. Chemistries notable for bicarb of 13 and BUN of c 39 creatinine of 1.0. Anion gap was 30. pH was
7.29. Alcohol level was undetectable. Continued to have persistent nausea vomiting and started complaining of tremors and was noted to be tachycardic with concern for alcohol withdrawal.
Medical History
Past Medical History
Past Medical History: Reports Other
Additional Past Medical History:
EtOH dependence
Past Surgical History: Reports None
Social History
Tobacco: Non-smoker
Alcohol: Chronic Alcoholic
Drug: Marijuana
Personal: Single
Living: With Family
Employment: Not Employed
Family History
Family History: Not pertinent
Allergies / Home Medications
Allergies reflects when Allergies were last updated in [employer].
Home Medications with original date entered in [employer]
Allergy/Medication List:
Allergies
Allergy/AdvReac Type Severity Reaction Status Date / Time
Sulfa (Sulfonamide Allergy Rash Verified 04/17/24 20:06
Antibiotics)
Home Medications
multivitamin with folic acid 400 mcg tablet (Tab-A-Bernie) 1 tab PO DAILY Supplement 10/03/21
ascorbic acid (vitamin C) 500 mg tablet (Vitamin C) 500 mg PO DAILY Supplement 02/11/24
cholecalciferol (vitamin D3) 25 mcg (1,000 unit) tablet (Vitamin D3) 25 mcg PO DAILY Supplement 02/11/24
cyanocobalamin (vitamin B-12) 1,000 mcg tablet 1,000 mcg PO DAILY Supplement 02/11/24
folic acid 1 mg tablet 1 mg PO DAILY Supplement 02/11/24
magnesium oxide 400 mg PO DAILY Supplement 02/11/24
milk thistle 175 mg tablet 175 mg PO DAILY Supplement 02/11/24
turmeric 400 mg capsule 400 mg PO DAILY Supplement 02/11/24
thiamine HCl (vitamin B1) 100 mg tablet 100 mg PO DAILY Supplement 03/06/24
nystatin 100,000 unit/mL oral suspension 5 ml PO QID #240 mL 03/08/24
pantoprazole 40 mg tablet,delayed release (Protonix) 40 mg PO DAILY Gastrointestinal Issue #30 tabs 03/08/24
pantoprazole 40 mg tablet,delayed release See Rx Instructions .Route .COMPLEX #60 tabs 03/29/24
Review of Systems
-
History Source: Patient
Constitutional: Reports No Symptoms
EENT: Reports No Symptoms
Respiratory: Reports No Symptoms
Cardiac: Reports No Symptoms
Abdomen/GI: Reports Nausea and Vomiting
: Reports No Symptoms
Musculoskeletal: Reports No Symptoms
Skin: Reports No Symptoms
Neurological: Reports No Symptoms
Endocrine: Reports No Symptoms
Hematologic/Lymphatic: Reports No Symptoms
Psych: Reports No Symptoms
Physical Exam
Vital Signs
Vital Signs
Temp Pulse Resp BP Pulse Ox
97.9 F 111 17 127/71 100
04/17/24 20:07 04/18/24 02:15 04/18/24 02:15 04/18/24 02:00 04/18/24 02:15
Physical Exam
General: Well Developed and No Apparent Distress
HEENT: NormoCephalic, Anicteric, Moist mucous membranes, Atraumatic and PERRLA
Respiratory: Clear
Cardiac: S1/S2 and Tachycardia
Breast: Deferred by me
GI: Soft, Non Tender, Non Distended and Normal Bowel Sounds
Rectal: Deferred by Provider
Genito-urinary: Deferred by me
Musculoskeletal: No Clubbing, No Cyanosis and No Edema
Skin: Warm
Neuro: AO x 3
Hematologic/Lymphatic: No Lymphadenopathy
Psych: Calm
Laboratory Results
-
04/18/24 00:03
04/18/24 00:03
Laboratory Results
Total Bilirubin 1.2 mg/dl (0.2-1.3) 04/18/24 00:03
AST 49 U/L (17-59) 04/18/24 00:03
ALT 38 U/L (0-50) 04/18/24 00:03
Alkaline Phosphatase 132 U/L (38-126) H 04/18/24 00:03
Lipase 57 U/L (23-300) 04/18/24 00:03
Data Reviewed
-
Lab Data: Labs Reviewed by me
Old Records: Reviewed
Impression/Plan
-
IMPRESSION:
Patient with history of significant water dependence who has recurrent admissions for alcohol withdrawal comes in after stopping drinking at around 8 PM on (drinks about a pint of alcohol daily) with persistent nausea or vomiting. Patient
is well-appearing. Labs are mostly remarkable for anion gap acidosis. Lipase was within normal limits. LFTs are unremarkable.
PLAN:
1. Alcoholic Ketoacidosis - Pure AG acidosis, gap 30 due to chronic alcohol use and alcoholic ketoacidosis.
- clear liquid diet as tolerated
- antiemetics
- IV D5 LR at 150 ml/hr will gradually correct anomalies
- follow lytes and magnesium level in am
- advance diet as tolerated
2. ETOH withdrawal - H/O withdrawal but no seizures. Last drink about 36 hours ago. CIWA < 8
- MSAS withdrawal protocol with iv and oral ativan, deescalate as needed
- Case management for inpatient alcohol rehab
3. Thrush - minimally symptomatic
- continue nystatin oral
DVT PPX - lovenox sq
Code status - Full Code
[2024-04-18] MEDS: BENADRYL 25 MG PO (04:20)
[2024-04-18] MEDS: D5LR 1000 IV ×2 (06:21→21:55)
[2024-04-18 06:39] LABS: APTT 29.9 Sec (23.4-35.0)
[2024-04-18 07:29] LABS: Magnesium 1.7 mg/dl (1.6-2.3); Phosphorus 3.5 mg/dl (2.5-4.5)
[2024-04-18] MEDS: PROTONIX IV 40 MG IV ×2 (07:50→21:59)
[2024-04-18] MEDS: NSS (PRESERVATIVE FREE) 10 ML IV ×2 (07:51→21:59)
[2024-04-18] MEDS: THIAMINE INJECTION 200 MG IV (07:52)
[2024-04-18] MEDS: VITAMIN B-12 1000 MCG PO (07:54)
[2024-04-18] MEDS: FOLVITE 50.2 MG IV (07:55)
[2024-04-18] MEDS: MYCOSTATIN ORAL SUSPENSION 500000 UNITS PO (07:57)
[2024-04-18 09:33] LABS: Lactic Acid 0.7 mmol/L (0.7-2.0)
[2024-04-18 09:36] LABS: ALT (SGPT) 27 U/L (0-50); AST (SGOT) 37 U/L (17-59); Albumin 4.1 g/dl (3.5-5.0); Alkaline Phosphatase 85 U/L (38-126); Blood Urea Nitrogen 10 mg/dl (9-20); Calcium 9.2 mg/dl (8.4-10.2); Carbon Dioxide 15 mmol/L (22-30); Chloride 104 mmol/L (98-107); Estimated Creatinine Clearance > 125 ml/min; Glucose 109 mg/dl (70-99); Magnesium 1.7 mg/dl (1.6-2.3); Potassium 3.8 mmol/L (3.5-5.1); Sodium 137 mmol/L (135-145); Total Bilirubin 1.2 mg/dl (0.2-1.3); Total Protein 6.6 g/dl (6.3-8.2); eGFR > 60.00
[2024-04-18 09:41] LABS: B-Hydroxybutyrate 3.32 mmol/L (0.02-0.27)
[2024-04-18 09:50] LABS: Urine Albumin Negative (Neg - Trace); Urine Bilirubin Negative (Negative); Urine Character Clear (Clear); Urine Color Yellow; Urine Glucose Negative (Negative); Urine Ketone 3+ (Negative); Urine Leukocyte Negative (Negative); Urine Nitrite Negative (Negative); Urine Occult Blood Negative (Negative); Urine Urobilinogen Negative (Neg - 1+)
[2024-04-18] MEDS: LR 1000 IV ×2 (09:55→15:30)
[2024-04-18 10:24] LABS: HIV Combo Negative (Negative)
--- NOTE | 2024-04-18 11:12 | CM ---
CM reviewed chart. CM introduced self and role. Patient lives at home with his parents and brother. He is currently unemployed. He owns no DME. He is independent and can drive. He lives in a multi-level home. He lives on the 3rd floor and there are
28 steps to get to the 3rd floor. He shared there is a back entrance to his home and there about 3-4 steps. Denies any +SDOHs. One of his family members will provide transportation once he is discharged.
CM CONSULT:
CM consult for [facility] services. CM explained there was a consult placed. Patient verbalized that he was familiar with [facility] and that they already came to his room early in the morning to talk about inpatient rehab and other resources.
He shared that he has been to [facility] several times. He and his mother have discussed this, and would like him to try out another inpatient facility.
[2024-04-18] MEDS: MYCOSTATIN ORAL SUSPENSION 5 ML PO ×3 (12:33→22:00)
--- NOTE | 2024-04-18 14:23 | W.PN.UPDATE ---
Update Note
Progress Note Update
No acute events. Patient still acidotic, continue aggressive IV fluid resuscitation. Replete electrolytes including phosphorus. Beta-hydroxybutyrate 3.32, lactate 0.7. Positive ketones in the urine. Glucose 109. Patient not on SGLT2i. COnt
MSAS, aterrol prn
[2024-04-18] MEDS: SODIUM PHOSPHATE 255 MEQ IV (17:48)
[2024-04-18] MEDS: LOVENOX 40 MG SC (18:11)
[2024-04-18] MEDS: MELATONIN 5 MG PO (22:02)
[2024-04-19] MEDS: D5LR IV (00:11)
[2024-04-19] MEDS: D5LR 1000 IV ×2 (04:16→17:01)
[2024-04-19] MEDS: FOLVITE 50.2 MG IV (05:41)
[2024-04-19 07:30] VITALS: BP 129/86
[2024-04-19 08:32] LABS: Hematocrit 41.4 % (39.0-52.0); Mean Corp Hgb Conc. 36.2 g/dL (33.0-37.0); Mean Corpuscular Hgb 32.5 pg (27.0-31.0); Mean Corpuscular Volume 89.8 fL (80.0-94.0); Mean Platelet Volume 10.2 fL (7.4-10.4); Platelet Count 251 10^3/uL (130-400); Red Blood Cell Count 4.61 10^6/uL (4.70-6.10); Red Cell Dist. Width 12.8 % (11.5-14.5); White Blood Cell Count 5.2 10^3/uL (4.8-10.8)
[2024-04-19 09:01] LABS: ALT (SGPT) 24 U/L (0-50); AST (SGOT) 35 U/L (17-59); Albumin 3.7 g/dl (3.5-5.0); Alkaline Phosphatase 84 U/L (38-126); Blood Urea Nitrogen < 2 mg/dl (9-20); Carbon Dioxide 26 mmol/L (22-30); Chloride 102 mmol/L (98-107); Estimated Creatinine Clearance > 125 ml/min; Glucose 104 mg/dl (70-99); Magnesium 1.6 mg/dl (1.6-2.3); Phosphorus 2.1 mg/dl (2.5-4.5); Potassium 3.7 mmol/L (3.5-5.1); Sodium 140 mmol/L (135-145); Total Bilirubin 1.7 mg/dl (0.2-1.3); Total Protein 6.3 g/dl (6.3-8.2); eGFR > 60.00
[2024-04-19] MEDS: MYCOSTATIN ORAL SUSPENSION 5 ML PO ×4 (09:06→21:23)
[2024-04-19] MEDS: VITAMIN B-12 1000 MCG PO (09:06)
[2024-04-19] MEDS: PROTONIX IV 40 MG IV ×2 (09:07→19:55)
[2024-04-19] MEDS: NSS (PRESERVATIVE FREE) 10 ML IV ×2 (09:07→19:55)
[2024-04-19] MEDS: SODIUM PHOSPHATE 255 MEQ IV (10:48)
[2024-04-19 15:27] LABS: Phosphorus 3.7 mg/dl (2.5-4.5)
--- NOTE | 2024-04-19 15:30 | W.PN.HOSP.TC ---
Today's Communication/Plan
-
M waldo, Ativan as needed
Electrolyte repletion
LR
Assessment / Plan
Assessment / Plan
Physical Exam
General: Well Developed and No Apparent Distress
HEENT: NormoCephalic, Anicteric, Moist mucous membranes, Atraumatic and PERRLA
Respiratory: Clear
Cardiac: S1/S2 and Tachycardia
Breast: Deferred by me
GI: Soft, Non Tender, Non Distended and Normal Bowel Sounds
Rectal: Deferred by Provider
Genito-urinary: Deferred by me
Musculoskeletal: No Clubbing, No Cyanosis and No Edema
Skin: Warm
Neuro: AO x 3
Hematologic/Lymphatic: No Lymphadenopathy
Psych: Calm
Patient with history of significant water dependence who has recurrent admissions for alcohol withdrawal comes in after stopping drinking at around 8 PM on (drinks about a pint of alcohol daily) with persistent nausea or vomiting. Patient
is well-appearing. Labs are mostly remarkable for anion gap acidosis. Lipase was within normal limits. LFTs are unremarkable.
PLAN:
#Alcoholic Ketoacidosis '
# Anion gap metabolic acidosis
- Pure AG acidosis, gap 30 due to chronic alcohol use and alcoholic ketoacidosis.
-Resolved with LR/fluids
� Continue LR for now
# ETOH withdrawal
- H/O withdrawal but no seizures.
-Last drink about 2 days ago hours ago.
- MSAS withdrawal protocol with iv and oral ativan, deescalate as needed
- Case management consulted
-Thiamine, folate
# Hypophosphatemia
� Monitor and replete
� Monitor for refeeding syndrome
#Thrush - minimally symptomatic
- continue nystatin oral
� HIV negative
DVT PPX - lovenox sq
Code status - Full Code
Anticipated Discharge: 24 - 48 hours
Subjective/Interval History
-
Date of Service: April 19, 2024
Received Ativan overnight
Objective Data
-
Labs:
Laboratory Results
04/19/24
07:03
WBC 5.2
Hgb 15.0
Hct 41.4
Plt Count 251 D
Sodium 140
Potassium 3.7
Chloride 102
Carbon Dioxide 26
BUN < 2 L
Creatinine 0.7
Glucose 104 H
Calcium 9.0
Total Bilirubin 1.7 H
AST 35
ALT 24
Alkaline Phosphatase 84
Vital Signs:
Vital Signs
Temp Pulse Resp BP Pulse Ox
98.3 F 81 17 129/86 97
04/19/24 07:30 04/19/24 07:30 04/19/24 07:30 04/19/24 07:30 04/19/24 07:30
I&O
04/18/24 04/19/24 04/20/24
06:59 06:59 06:59
Intake Total 1959
Output Total 300 / 300
Balance -300 / -300 1959
Review of Systems
-
History Source: Patient
All other systems: Not reviewed unless documented
Physical Exam
-
General: No Apparent Distress and Comfortable
HEENT: Negative Oxygen
Respiratory: Clear to Auscultation
Cardiac: Regular Rhythm and S1/S2; Negative Murmur or Rub
GI: Soft, Nontender, Nondistended and Normal Bowel Sounds
Musculoskeletal: No Edema
Neuro: Awake, Alert, Oriented, No Motor Deficits and Nonfocal/Grossly Intact
Psych: Calm
Data Reviewed
-
Total Time Spent with Patient (in minutes): 41
Labs: Labs Reviewed by me
[2024-04-19 15:35] VITALS: BP 153/80
[2024-04-19] MEDS: LR 1000 IV (15:55)
[2024-04-19] MEDS: LOVENOX 40 MG SC (18:23)
[2024-04-19] MEDS: VITAMIN B1 100 MG PO (19:55)
[2024-04-19] MEDS: ATIVAN 1 MG PO (20:06)
[2024-04-19] MEDS: MELATONIN 5 MG PO (21:24)
[2024-04-19 23:36] VITALS: BP 138/74
[2024-04-20] MEDS: LR 1000 IV ×3 (04:07→22:19)
[2024-04-20 07:56] VITALS: BP 131/86
[2024-04-20 08:01] LABS: Hematocrit 43.2 % (39.0-52.0); Hemoglobin 15.8 g/dL (13.0-18.0); Mean Corp Hgb Conc. 36.6 g/dL (33.0-37.0); Mean Corpuscular Hgb 32.8 pg (27.0-31.0); Mean Corpuscular Volume 89.6 fL (80.0-94.0); Mean Platelet Volume 9.5 fL (7.4-10.4); Platelet Count 245 10^3/uL (130-400); Red Blood Cell Count 4.82 10^6/uL (4.70-6.10); Red Cell Dist. Width 12.7 % (11.5-14.5); White Blood Cell Count 5.1 10^3/uL (4.8-10.8)
[2024-04-20 08:40] LABS: ALT (SGPT) 30 U/L (0-50); AST (SGOT) 44 U/L (17-59); Albumin 4.1 g/dl (3.5-5.0); Alkaline Phosphatase 87 U/L (38-126); Blood Urea Nitrogen 5 mg/dl (9-20); Calcium 9.5 mg/dl (8.4-10.2); Carbon Dioxide 24 mmol/L (22-30); Chloride 103 mmol/L (98-107); Estimated Creatinine Clearance > 125 ml/min; Glucose 94 mg/dl (70-99); Magnesium 1.6 mg/dl (1.6-2.3); Phosphorus 3.4 mg/dl (2.5-4.5); Potassium 3.6 mmol/L (3.5-5.1); Sodium 140 mmol/L (135-145); Total Bilirubin 1.4 mg/dl (0.2-1.3); Total Protein 6.9 g/dl (6.3-8.2); eGFR > 60.00
[2024-04-20] MEDS: PROTONIX IV 40 MG IV ×2 (08:41→20:08)
[2024-04-20] MEDS: MYCOSTATIN ORAL SUSPENSION 5 ML PO ×4 (08:41→22:15)
[2024-04-20] MEDS: NSS (PRESERVATIVE FREE) 10 ML IV ×2 (08:41→20:08)
[2024-04-20] MEDS: FOLVITE 1 MG PO (08:42)
[2024-04-20] MEDS: VITAMIN B-12 1000 MCG PO (08:42)
[2024-04-20] MEDS: VITAMIN B1 100 MG PO ×2 (08:42→20:08)
[2024-04-20] MEDS: TYLENOL 650 MG PO (09:01)
--- NOTE | 2024-04-20 09:53 | CM ---
manager of financial planning reviewed patient's chart and reached out to ANASTASIA per Jeff at [facility] they have met many times with patient and patient's mother, they have provided resources, patient has been inpatient for treatment in the past, per ANASTASIA when they
met with patient this admission patient declined any further assistance from ANASTASIA saying that he would follow up himself and did not need help.
Plan; Home with mother when stable, [facility] per patient he will follow up with help from his mother after discharge.
--- NOTE | 2024-04-20 12:58 | W.PN.HOSP.TC ---
Today's Communication/Plan
-
Continue with alcohol withdrawal protocol
Continue nystatin for thrush
Assessment / Plan
Assessment / Plan
#Alcohol withdrawal
-All history of withdrawal but no seizures or DT; last drink 2 days prior to admission
-Currently on [facility] withdrawal protocol with IV and oral Ativan, de-escalating as
-Continue with folate and thiamine replacement
#Alcoholic Ketoacidosis
#Anion gap metabolic acidosis
-Pure AG acidosis, gap 30 due to chronic alcohol use and alcoholic ketoacidosis.
-Resolved with LR/fluids
#Hypophosphatemia
-Monitor and replete as needed
-Monitor for refeeding syndrome
#Thrush
-minimally symptomatic
-continue nystatin oral
-HIV testing was negative
DVT PPX - lovenox sq
Diet: Regular
Code status - Full Code
Anticipated Discharge: Within 24 hours
Subjective/Interval History
-
Date of Service: April 20, 2024
Seen and examined at bedside. No acute events overnight. AFVSS this morning
States he feels better, still having trouble with sleep due to his withdrawal.
Denies chest pain, dyspnea, fevers chills, paresthesias or weakness, bleeding or bruising, abdominal pain, nausea/vomiting/diarrhea, tremors, urinary issues
Objective Data
-
Labs:
Laboratory Results
04/20/24
07:53
WBC 5.1
Hgb 15.8
Hct 43.2
Plt Count 245
Sodium 140
Potassium 3.6
Chloride 103
Carbon Dioxide 24
BUN 5 L
Creatinine 0.7
Glucose 94
Calcium 9.5
Total Bilirubin 1.4 H
AST 44
ALT 30
Alkaline Phosphatase 87
Vital Signs:
Vital Signs
Temp Pulse Resp BP Pulse Ox
98.5 F 77 17 131/86 99
04/20/24 07:56 04/20/24 07:56 04/20/24 07:56 04/20/24 07:56 04/20/24 07:56
I&O
04/19/24 04/20/24 04/21/24
06:59 06:59 06:59
Intake Total 1959 2820 / 2820
Output Total 1550 / 1550
Balance 1959 1270 / 1270
Review of Systems
-
History Source: Patient
All other systems: Reviewed and negative
Physical Exam
-
General: Well Nourished, No Apparent Distress and Comfortable
HEENT: Normocephalic, Atraumatic and Moist Mucous Membranes
Respiratory: Clear to Auscultation and Non Labored Respirations
Cardiac: Regular Rhythm and S1/S2; Negative Murmur, Rub or Gallop
GI: Soft, Nontender, Nondistended and Normal Bowel Sounds
Musculoskeletal: No Clubbing, No Cyanosis and No Edema
Skin: Warm and Dry; Negative Rash
Neuro: AO x 3, Nonfocal/Grossly Intact and Central Nerve's Intact; Negative Tremors
Psych: Calm
Data Reviewed
-
Labs: Labs Reviewed by me and Discussed with Patient
[2024-04-20 15:15] VITALS: BP 144/98
[2024-04-20] MEDS: LOVENOX 40 MG SC (17:47)
[2024-04-20] MEDS: MELATONIN 5 MG PO (22:15)
[2024-04-20] MEDS: ATIVAN 1 MG PO (22:18)
[2024-04-20 23:54] VITALS: BP 150/75
[2024-04-21 07:45] VITALS: BP 141/88
[2024-04-21] MEDS: MYCOSTATIN ORAL SUSPENSION 5 ML PO (08:23)
[2024-04-21] MEDS: VITAMIN B-12 1000 MCG PO (08:23)
[2024-04-21] MEDS: PROTONIX IV 40 MG IV (08:23)
[2024-04-21] MEDS: VITAMIN B1 100 MG PO (08:23)
[2024-04-21] MEDS: FOLVITE 1 MG PO (08:23)
[2024-04-21] MEDS: NSS (PRESERVATIVE FREE) 10 ML IV (08:24)
[2024-04-21 08:38] LABS: % Basophils 0.8 % (0-2); % Eosinophils 2.7 % (0-6); % Immature Granulocytes 0.4 % (0-0.5); % Lymphocytes 34.9 % (20.5-51.1); % Monocytes 11.4 % (1.7-9.3); % Neutrophils 49.8 % (42.2-75.2); Absolute Eosinophils 0.1 10^3/uL (0-0.7); Absolute Lymphocytes 1.8 10^3/uL (1.2-3.4); Absolute Monocytes 0.6 10^3/uL (0.1-0.6); Absolute Neutrophils 2.6 10^3/uL (1.4-6.5); Hemoglobin 15.1 g/dL (13.0-18.0); Mean Corpuscular Hgb 31.7 pg (27.0-31.0); Mean Corpuscular Volume 88.1 fL (80.0-94.0); Mean Platelet Volume 10.5 fL (7.4-10.4); Nucleated Red Blood Cells % 0 % (-); Platelet Count 241 10^3/uL (130-400); Red Blood Cell Count 4.77 10^6/uL (4.70-6.10); Red Cell Dist. Width 12.6 % (11.5-14.5); White Blood Cell Count 5.2 10^3/uL (4.8-10.8)
[2024-04-21 09:10] LABS: ALT (SGPT) 41 U/L (0-50); AST (SGOT) 61 U/L (17-59); Alkaline Phosphatase 71 U/L (38-126); Blood Urea Nitrogen 7 mg/dl (9-20); Calcium 9.3 mg/dl (8.4-10.2); Carbon Dioxide 25 mmol/L (22-30); Chloride 102 mmol/L (98-107); Estimated Creatinine Clearance > 125 ml/min; Glucose 81 mg/dl (70-99); Magnesium 1.8 mg/dl (1.6-2.3); Potassium 3.6 mmol/L (3.5-5.1); Sodium 140 mmol/L (135-145); Total Bilirubin 1.1 mg/dl (0.2-1.3); Total Protein 6.8 g/dl (6.3-8.2); eGFR > 60.00
[2024-04-21 09:18] LABS: Phosphorus 3.2 mg/dl (2.5-4.5)
--- NOTE | 2024-04-21 10:37 | W.PN.HOSP.TC ---
Today's Communication/Plan
-
Discharge home
Assessment / Plan
Assessment / Plan
#Alcohol withdrawal
-All history of withdrawal but no seizures or DT; last drink 2 days prior to admission
-Currently on [facility] withdrawal protocol with IV and oral Ativan, de-escalating as
-Continue with folate and thiamine replacement at discharge
-No signs of withdrawal on my evaluation today
#Alcoholic Ketoacidosis
#Anion gap metabolic acidosis
-Pure AG acidosis, gap 30 due to chronic alcohol use and alcoholic ketoacidosis.
-Resolved with LR/fluids
#Hypophosphatemia
-Monitor and replete as needed
-Monitor for refeeding syndrome
#Thrush
-minimally symptomatic
-continue nystatin oral
-HIV testing was negative
DVT PPX - lovenox sq
Diet: Regular
Code status - Full Code
Anticipated Discharge: Today
Subjective/Interval History
-
Date of Service: April 21, 2024
Seen and examined at bedside. No acute events overnight. AFVSS this morning. Patient states he feels well and is regularly
Objective Data
-
Labs:
Laboratory Results
04/21/24
06:44
WBC 5.2
Hgb 15.1
Hct 42.0
Plt Count 241
Sodium 140
Potassium 3.6
Chloride 102
Carbon Dioxide 25
BUN 7 L
Creatinine 0.7
Glucose 81
Calcium 9.3
Total Bilirubin 1.1
AST 61 H
ALT 41
Alkaline Phosphatase 71
Vital Signs:
Vital Signs
Temp Pulse Resp BP Pulse Ox
98.5 F 73 20 141/88 98
04/21/24 07:45 04/21/24 07:45 04/21/24 07:45 04/21/24 07:45 04/21/24 07:45
I&O
04/20/24 04/21/24 04/22/24
06:59 06:59 06:59
Intake Total 2820 / 2820 1200 / 1200
Output Total 1550 / 1550
Balance 1270 / 1270 1200 / 1200
Review of Systems
-
History Source: Patient
All other systems: Reviewed and negative
Physical Exam
-
General: Well Nourished, No Apparent Distress and Comfortable
HEENT: Normocephalic, Atraumatic and Moist Mucous Membranes
Respiratory: Clear to Auscultation and Non Labored Respirations
Cardiac: Regular Rhythm and S1/S2
GI: Soft, Nontender, Nondistended and Normal Bowel Sounds
Musculoskeletal: No Clubbing, No Cyanosis, No Edema and Normal Gait & Station
Skin: Warm and Dry; Negative Rash
Neuro: AO x 3, Nonfocal/Grossly Intact and Central Nerve's Intact
Psych: Calm
Data Reviewed
-
Labs: Labs Reviewed by me and Discussed with Patient
--- NOTE | 2024-04-21 10:44 | W.DCSUMMARY ---
Discharge Summary
Discharge Data
Date of Admission: 04/18/24
Date of Discharge: 04/21/24
-
Pending Results: No
Hospital Course
38-year-old male with alcohol abuse history complicated by previous alcohol withdrawal (no history of DT or seizure) presented to the hospital with recurrent alcohol withdrawal. Last drink 2 days prior to admission. Was started on MSAS protocol
here and treated with oral and IV benzodiazepine taper course. Symptomatically improved over this time with resolution of his withdrawal. Encouraged alcohol cessation and follow-up with PCP, consideration for alcohol rehab if needed.
He was also treated with nystatin oral solution for oropharyngeal thrush. Unclear cause however HIV testing negative. Per outpatient pharmacy records it seems that he has had issues with this in the past as well. Directed to continue nystatin
solution 4 times daily for total of 7 to 10 days
Discharge Plan
-
Patient Disposition: Home (Routine Discharge)
Discharge Diagnosis/Procedures: Alcohol withdrawal
Oropharyngeal thrush (candidiasis)
Condition: Good
Diet: No restrictions
Additional Diets: Avoid alcohol
Activity: As tolerated
Driving Restrictions: As prior to admission
Bathing Restrictions: None
Activity Restrictions/Additional Instructions:
Schedule follow-up appointment with family doctor within 1 week of discharge
Instructions: Thrush in adults, Alcohol withdrawal
Referrals:
UNKNOWN - PT DOES,NOT KNOW [Family Provider] -
Additional Discharge Medication Instructions: Continue with 1 mg folic acid and 100 mg thiamine supplementation daily
Continue with nystatin oral solution 4 times daily for 7 days after discharge
Prescriptions:
New
nystatin 100,000 unit/mL Suspension
5 ml PO QID 7 Days Qty: 140 0RF
Continued
multivitamin with folic acid [Tab-A-Bernie] 1 TABLET tablet
1 tab PO DAILY
milk thistle 175 mg Tablet
175 mg PO DAILY
cyanocobalamin (vitamin B-12) 1,000 mcg Tablet
1,000 mcg PO DAILY
ascorbic acid (vitamin C) [Vitamin C] 500 mg Tablet
500 mg PO DAILY
folic acid 1 mg Tablet
1 mg PO DAILY
cholecalciferol (vitamin D3) [Vitamin D3] 25 mcg (1,000 unit) Tablet
25 mcg PO DAILY
magnesium oxide 400 mg magnesium Tablet
400 mg PO DAILY
turmeric 400 mg Capsule
400 mg PO DAILY
thiamine HCl (vitamin B1) 100 mg Tablet
100 mg PO DAILY
pantoprazole [Protonix] 40 mg tablet,delayed release (DR/EC)
40 mg PO DAILY Qty: 30 0RF
pantoprazole 40 mg tablet,delayed release (DR/EC)
See Rx Instructions .ROUTE .COMPLEX Qty: 60 1RF
Rx Instructions:
Take 1 Tab Twice daily for 4 weeks THEN
Take 1 Tab daily
Discontinued
nystatin 100,000 unit/mL Suspension
5 ml PO QID Qty: 240 0RF
fluconazole 100 mg Tablet
100 mg PO DAILY Qty: 5 0RF
Discharge Orders:
Discharge Patient (As Directed); Ordered 04/21/24
Ordered By: John Newberry
Discharge Date and Time
Print Language: [place]
[2024-04-21 11:32] VITALS: BP 149/98
--- NOTE | 2024-04-21 11:46 | CM ---
CM reviewed chart, patient for discharge today. Patient family to provide transport home. CM will continue to follow for all discharge planning needs.
Plan; home with family, has [facility] information.
== END 2024-04-21 11:53 | disposition home or self-care (01) | DRG 897 ==
LOC: 4 WEST ACU 03:27
PROVIDERS: Emergency Medicine; Internal Medicine; Physician Assistant; ADMITTING PHYSICIAN Internal Medicine; ATTENDING PHYSICIAN Internal Medicine; EMERGENCY PHYSICIAN Student in an Organized Health Care Education/Training Program
DX: F10.239 Alcohol dependence with withdrawal, unspecified (principal); B37.0 Candidal stomatitis; E87.29 Other acidosis; F17.200 Nicotine dependence, unspecified, uncomplicated; K21.9 Gastro-esophageal reflux disease without esophagitis; R25.1 Tremor, unspecified; Z79.899 Other long term (current) drug therapy; Z88.2 Allergy status to sulfonamides
CPT/HCPCS: 80053; 81003; 82010; 82077; 82805; 83605; 83690; 83735; 84100; 85025; 85027; 85610; 85730; 87389; 93005; 96365; 96375; 99285

== ENCOUNTER 2024-06-05 10:16 | Inpatient (IN) | payer OTHER, SELFPAY ==
[2024-06-05] VITALS (12 sets, daily range): BP systolic 132–160; BP diastolic 90–117
[2024-06-05 07:37] LABS: % Basophils 0.5 % (0-2); % Immature Granulocytes 0.3 % (0-0.5); % Lymphocytes 13.7 % (20.5-51.1); % Monocytes 18.6 % (1.7-9.3); % Neutrophils 66.9 % (42.2-75.2); Absolute Lymphocytes 0.5 10^3/uL (1.2-3.4); Absolute Monocytes 0.7 10^3/uL (0.1-0.6); Absolute Neutrophils 2.6 10^3/uL (1.4-6.5); Hematocrit 55.2 % (39.0-52.0); Hemoglobin 19.3 g/dL (13.0-18.0); Mean Corpuscular Hgb 33.5 pg (27.0-31.0); Mean Corpuscular Volume 95.8 fL (80.0-94.0); Mean Platelet Volume 10.3 fL (7.4-10.4); Nucleated Red Blood Cells % 0 % (-); Platelet Count 209 10^3/uL (130-400); Red Blood Cell Count 5.76 10^6/uL (4.70-6.10); Red Cell Dist. Width 12.9 % (11.5-14.5); White Blood Cell Count 3.9 10^3/uL (4.8-10.8)
[2024-06-05 07:49] LABS: ALT (SGPT) 348 U/L (0-50); AST (SGOT) 290 U/L (17-59); Albumin 5.9 g/dl (3.5-5.0); Alkaline Phosphatase 189 U/L (38-126); Blood Urea Nitrogen 21 mg/dl (9-20); Calcium 10.4 mg/dl (8.4-10.2); Carbon Dioxide 16 mmol/L (22-30); Chloride 87 mmol/L (98-107); Glucose 202 mg/dl (70-99); Lipase 500 U/L (23-300); Potassium 4.7 mmol/L (3.5-5.1); Sodium 136 mmol/L (135-145); Total Bilirubin 3.1 mg/dl (0.2-1.3); Total Protein 9.6 g/dl (6.3-8.2); eGFR > 60.00
[2024-06-05 07:51] LABS: Alcohol None Detected
--- NOTE | 2024-06-05 08:02 | ED.GENMED ---
History of Present Illness
<Jackie Leonard MD, Resident - Last Filed: 06/05/24 16:25>
General
Chief Complaint: Alcohol Problem
Time Seen by Provider: 06/05/24 07:58
History of Present Illness
History of Present Illness:
38-year-old male with past medical history of alcohol abuse disorder presenting to the ED with nausea and vomiting since 2 days ago and felt he was going through withdrawal. Patient notes chills, shaking, and headache. Notes last drink was 2 days
ago and usually drinks half a pint to 1 pint of vodka daily. Patient reports taking Zofran yesterday without any improvement. Denies visual changes, sweating, abdominal pain, diarrhea. Notes burning on urination since yesterday. Also notes recent
nosebleeds. Does not have a history of seizure/DT on withdrawal.
Past History
<Jackie Leonard MD, Resident - Last Filed: 06/05/24 16:25>
Past History
ED Past Medical History: HTN and Other (Alcohol abuse, reflux)
ED Past Surgical History: None
Social History
Tobacco: Smoker
Alcohol: Chronic alcoholic
Drug: Marijuana
Personal: Single
Living: with family
Employment: Employed
Family History
Family History: Other (Noncontributory)
Review of Systems
<Jackie Leonard MD, Resident - Last Filed: 06/05/24 16:25>
Review of Systems
Constitutional: Reports chills
EENT: Reports no symptoms
Respiratory: Reports no symptoms
Cardiac: Reports no symptoms
ABD/GI: Reports nausea and vomiting
: Reports dysuria
Musculoskeletal: Reports no symptoms
Skin: Reports no symptoms
Neurological: Reports headache
Endocrine: Reports no symptoms
Hematologic/Lymphatic: Reports no symptoms
Psychiatric: Reports anxiety
Phy Exam
<Jackie Leonard MD, Resident - Last Filed: 06/05/24 16:25>
Physical Exam
Physical Exam:
GENERAL: Alert , in no apparent distress
EYE: pupils equal and reactive
NECK: Supple, no significant adenopathy.
ENT: o/p clr, mmm.
CARDIAC: Regular rate and rhythm.
LUNGS: Clear breath sounds bilaterally, no acute respiratory distress, no wheezes/rales/rhonchi
ABDOMEN: Soft, without focal tenderness, no r/g, no cvat
NEUROLOGICAL: Alert and oriented, no focal neuro deficits
SKIN: Warm and dry, skin intact.
MUSCULOSKELETAL: No edema, well perfused.
PSYCH: Normal and appropriate interaction.
Scores
<Jackie Leonard MD, Resident - Last Filed: 06/05/24 16:25>
Withdrawal Assessment of Alcohol
Withdrawal Assessment Completed?: Yes
Nausea and Vomiting: Constant nausea, frequent dry heaves and vomiting
Tactile Disturbances: Very mild itching, pins and needles, burning or numbness
Tremor: Moderate, with patient's arms extended
Auditory Disturbances: Not present
Paroxysmal Sweats: No sweat visible
Visual Disturbances: Not present
Anxiety: Mild anxiety
Headache, Fullness in Head: Mild
Agitation: Moderately fidgety and restless
Orientation and clouding of sensorium: Oriented and can do serial additions
Total CIWA Score: 19
Alcohol Withdrawal Medication Recommendation: Equal to MSAS Score 8-11. Lorazepam 1-2mg IV NOW & re-assess q1hr
<Ez He, DO - Last Filed: 06/05/24 10:33>
Withdrawal Assessment of Alcohol
Total CIWA Score: 19
Alcohol Withdrawal Medication Recommendation: Equal to MSAS Score 8-11. Lorazepam 1-2mg IV NOW & re-assess q1hr
Course
<Jackie Leonard MD, Resident - Last Filed: 06/05/24 16:25>
Orders/Labs/Results
Orders:
Orders
06/05/24 07:27
Alcohol Urgent
B-Hydroxybutyrate Urgent
Comment: ADD ON
Complete Blood Count/With Diff Urgent
Comprehensive Metabolic Panel Urgent
Direct Bilirubin Urgent
Comment: ADD ON
GGTP Urgent
Comment: ADD ON
Lipase Urgent
Magnesium Urgent
Comment: ADD
Phosphorus Urgent
Comment: ADD ON
06/05/24 08:36
0.9% Sodium Chloride 1000 ml [Nss] 1,000 ml IV BOLUS
Lorazepam [Ativan] 2 mg IV NOW STA
06/05/24 08:40
US Abdomen Complete/Upper Urgent
Comment:
Reason For Exam: nausea, vomiting, elevated bilirubin
06/05/24 08:48
Add On- LAB Urgent
Tests Added?: Magnesium
06/05/24 08:50
FOLic ACID [Folvite] 1 mg 0.9% Sodium Chloride 50 ml [Nss] 50 ml IV NOW
06/05/24 09:43
Add On- LAB Routine
Tests Added?: direct bilirubin
06/05/24 09:54
Admit/Transfer Patient As Directed
Co-Sign Provider:
Level of Care: Inpatient admission
Assign to:: IMU- Intermediate Care
Physician / Group: Jose
Diagnosis: Alcohol withdrawal syndrome
Reason for Hospitalization: Treatment of alcohol w/d
Expected length of stay greater than two midnights?: Yes
ELOS- Estimated Length of Stay in days: 3
I certify the patient meets the requirements for IP care: Yes
06/05/24 09:55
PRN Pain Medication Management As Directed
May give lesser potent ordered pain med per pt: Yes
preference::
Protocol:: Medication orders for pain may be administered in a
manner that supports deferring to patient preference
when the pt is:
- Requesting an ordered lesser potent pain medication.
Least to most potent pain medications are defined
as: acetaminophen < NSAID < tramadol < opioids
(morphine, oxycodone, hydromorphone).
- Requesting a lesser dose of the same medication IF
ORDERED.
- Requesting a less intrusive route of administration
if both routes are prescribed by the provider (PO <
IV).
06/05/24 09:56
Code Status As Directed
Resuscitation Status: Full Code
06/05/24 Lunch
Clear Liquid
At Your Request: Full Participation
Oral Supplement (If unsure of flavor order apple or vanilla): Ensure Clear White
Supplement Frequency: BID
06/05/24 10:34
Prothrombin Time Urgent
06/05/24 11:41
0.9% Sodium Chloride [Nss (Preservative Free)] See Protocol IV PRN PRN
Acetaminophen [Tylenol] 650 mg PO Q6HPRN PRN
FOLic ACID [Folvite] 1 mg PO DAILY
FOLic ACID [Folvite] 1 mg 0.9% Sodium Chloride 50 ml [Nss] 50 ml IV DAILYPRN
Lactated Ringers [Lr] 1,000 ml IV 120 mls/hr
Lorazepam [Ativan] 1 mg IV Q1HPRN PRN
Lorazepam [Ativan] 1 mg PO Q2HPRN PRN
Lorazepam [Ativan] 2 mg IV Q1HPRN PRN
Phenobarbital Sodium [Phenobarbital] 260 mg 0.9% Sodium Chloride 100 ml [Nss] 100 ml IV NOW
06/05/24 11:41
Case Management Consult Once
Case Management Consult: Other
Comment: Substance abuse counseling
DIETARY CONSULT Routine
Reason for Consult: Nutrition support, possible refeeding guidelines
Activity As Directed
Activity Level: Ambulate
MSAS SCORE As Directed
MSAS Score 0-4: Repeat MSAS every 2 hours until 0-4 for three consecutive assessments, then every 4 hours x 48
hours.
MSAS Score 5-7: For MILD withdrawl symptoms. Repeat MSAS and RASS every 2 hours
MSAS Score 8-11: For MODERATE withdrawal symptoms. Repeat MSAS and RASS every 1 hour. Consider ICU or IMU
level of care.
MSAS Score > 11: For SEVERE withdrawal symptoms. Repeat MSAS and RASS every 1 hour. Notify provider, consider
ICU level of care.
MSAS Additional Instructions: If no improvement or no decrease in score from severe to moderate within 12
hours, consult psychiatry
MSAS Notify Provider: Notify provider if patient requires more than 10 mg of Lorazepam in eight hour period.
DX Deep Vein Thrombosis Video Routine
06/05/24 15:49
Urinalysis Reflex To Culture Urgent
Date Specimen was Collected: 06/05/24
Time Specimen was Collected: 08:48
Urine Drug Abuse Screen Urgent
Date Specimen was Collected: 06/05/24
Time Specimen was Collected: 08:48
06/05/24 16:00
Phenobarbital Sodium [Phenobarbital] 97.5 mg IV TID
Thiamine Injection 200 mg IV Q8
06/05/24 18:00
Enoxaparin Sodium [Lovenox] 40 mg SC QPM
06/05/24 18:30
Lactated Ringers [Lr] 1,000 ml IV 100 mls/hr
06/06/24 06:00
CBC/With Diff [Complete Blood Count/With Diff] IN AM
CMP [Comprehensive Metabolic Panel] IN AM
06/06/24 08:00
Ascorbic Acid [Vitamin C] 500 mg PO DAILY
Multivitamin [Theragran] 1 tablet PO DAILY
Pantoprazole [Protonix] 40 mg PO DAILY
06/07/24 06:00
CBC/With Diff [Complete Blood Count/With Diff] IN AM
CMP [Comprehensive Metabolic Panel] IN AM
06/07/24 16:00
Phenobarbital [Luminal] 64.8 mg PO TID
06/08/24 06:00
CMP [Comprehensive Metabolic Panel] IN AM
06/08/24 20:00
Thiamine HCl [Vitamin B1] 100 mg PO BID
06/09/24 16:00
Phenobarbital [Luminal] 32.4 mg PO TID
Abnormal Lab Results
06/05/24
07:27
WBC 3.9 L 10^3/uL
(4.8-10.8)
Hgb 19.3 H g/dL
(13.0-18.0)
Hct 55.2 H %
(39.0-52.0)
MCV 95.8 H fL
(80.0-94.0)
MCH 33.5 H pg
(27.0-31.0)
Absolute Lymphs (auto) 0.5 L 10^3/uL
(1.2-3.4)
Absolute Monos (auto) 0.7 H 10^3/uL
(0.1-0.6)
Lymphocytes % 13.7 L %
(20.5-51.1)
Monocytes % 18.6 H %
(1.7-9.3)
Chloride 87 L mmol/L
(98-107)
Carbon Dioxide 16 L mmol/L
(22-30)
BUN 21 H mg/dl
(9-20)
Glucose 202 H mg/dl
(70-99)
Calcium 10.4 H mg/dl
(8.4-10.2)
Total Bilirubin 3.1 H mg/dl
(0.2-1.3)
Direct Bilirubin 1.3 H mg/dl
(0.0-0.4)
GGT 741 H U/L
(15-73)
AST 290 H U/L
(17-59)
ALT 348 H U/L
(0-50)
Alkaline Phosphatase 189 H U/L
(38-126)
Total Protein 9.6 H g/dl
(6.3-8.2)
Albumin 5.9 H g/dl
(3.5-5.0)
Lipase 500 H U/L
(23-300)
06/05/24 07:27
06/05/24 07:27
Vital Signs
Initial and Last Documented VS:
Initial Vital Signs
Temp Pulse BP Pulse Ox
98.0 F 121 160/117 95
06/05/24 06:50 06/05/24 06:50 06/05/24 06:50 06/05/24 06:50
Last Documented Vital Signs
Temp Pulse Resp BP Pulse Ox
98.7 F 102 13 146/102 98
06/05/24 11:50 06/05/24 11:30 06/05/24 11:45 06/05/24 11:00 06/05/24 11:45
<Ez He, DO - Last Filed: 06/05/24 10:33>
Orders/Labs/Results
Orders:
Orders
06/05/24 07:27
Alcohol Urgent
B-Hydroxybutyrate Urgent
Comment: ADD ON
Complete Blood Count/With Diff Urgent
Comprehensive Metabolic Panel Urgent
Direct Bilirubin Urgent
Comment: ADD ON
GGTP Urgent
Comment: ADD ON
Lipase Urgent
Magnesium Urgent
Comment: ADD
Phosphorus Urgent
Comment: ADD ON
06/05/24 08:36
0.9% Sodium Chloride 1000 ml [Nss] 1,000 ml IV BOLUS
Lorazepam [Ativan] 2 mg IV NOW STA
06/05/24 08:40
US Abdomen Complete/Upper Urgent
Comment:
Reason For Exam: nausea, vomiting, elevated bilirubin
06/05/24 08:48
Add On- LAB Urgent
Tests Added?: Magnesium
06/05/24 08:50
FOLic ACID [Folvite] 1 mg 0.9% Sodium Chloride 50 ml [Nss] 50 ml IV NOW
06/05/24 09:43
Add On- LAB Routine
Tests Added?: direct bilirubin
06/05/24 09:54
Admit/Transfer Patient As Directed
Co-Sign Provider:
Level of Care: Inpatient admission
Assign to:: IMU- Intermediate Care
Physician / Group: Jose
Diagnosis: Alcohol withdrawal syndrome
Reason for Hospitalization: Treatment of alcohol w/d
Expected length of stay greater than two midnights?: Yes
ELOS- Estimated Length of Stay in days: 3
I certify the patient meets the requirements for IP care: Yes
06/05/24 09:55
PRN Pain Medication Management As Directed
May give lesser potent ordered pain med per pt: Yes
preference::
Protocol:: Medication orders for pain may be administered in a
manner that supports deferring to patient preference
when the pt is:
- Requesting an ordered lesser potent pain medication.
Least to most potent pain medications are defined
as: acetaminophen < NSAID < tramadol < opioids
(morphine, oxycodone, hydromorphone).
- Requesting a lesser dose of the same medication IF
ORDERED.
- Requesting a less intrusive route of administration
if both routes are prescribed by the provider (PO <
IV).
06/05/24 09:56
Code Status As Directed
Resuscitation Status: Full Code
06/05/24 Lunch
Clear Liquid
At Your Request: Full Participation
Oral Supplement (If unsure of flavor order apple or vanilla): Ensure Clear White
Supplement Frequency: BID
06/05/24 10:34
Prothrombin Time Urgent
06/05/24 11:41
0.9% Sodium Chloride [Nss (Preservative Free)] See Protocol IV PRN PRN
Acetaminophen [Tylenol] 650 mg PO Q6HPRN PRN
FOLic ACID [Folvite] 1 mg PO DAILY
FOLic ACID [Folvite] 1 mg 0.9% Sodium Chloride 50 ml [Nss] 50 ml IV DAILYPRN
Lactated Ringers [Lr] 1,000 ml IV 120 mls/hr
Lorazepam [Ativan] 1 mg IV Q1HPRN PRN
Lorazepam [Ativan] 1 mg PO Q2HPRN PRN
Lorazepam [Ativan] 2 mg IV Q1HPRN PRN
Phenobarbital Sodium [Phenobarbital] 260 mg 0.9% Sodium Chloride 100 ml [Nss] 100 ml IV NOW
06/05/24 11:41
Case Management Consult Once
Case Management Consult: Other
Comment: Substance abuse counseling
DIETARY CONSULT Routine
Reason for Consult: Nutrition support, possible refeeding guidelines
Activity As Directed
Activity Level: Ambulate
MSAS SCORE As Directed
MSAS Score 0-4: Repeat MSAS every 2 hours until 0-4 for three consecutive assessments, then every 4 hours x 48
hours.
MSAS Score 5-7: For MILD withdrawl symptoms. Repeat MSAS and RASS every 2 hours
MSAS Score 8-11: For MODERATE withdrawal symptoms. Repeat MSAS and RASS every 1 hour. Consider ICU or IMU
level of care.
MSAS Score > 11: For SEVERE withdrawal symptoms. Repeat MSAS and RASS every 1 hour. Notify provider, consider
ICU level of care.
MSAS Additional Instructions: If no improvement or no decrease in score from severe to moderate within 12
hours, consult psychiatry
MSAS Notify Provider: Notify provider if patient requires more than 10 mg of Lorazepam in eight hour period.
DX Deep Vein Thrombosis Video Routine
06/05/24 15:49
Urinalysis Reflex To Culture Urgent
Date Specimen was Collected: 06/05/24
Time Specimen was Collected: 08:48
Urine Drug Abuse Screen Urgent
Date Specimen was Collected: 06/05/24
Time Specimen was Collected: 08:48
06/05/24 16:00
Phenobarbital Sodium [Phenobarbital] 97.5 mg IV TID
Thiamine Injection 200 mg IV Q8
06/05/24 18:00
Enoxaparin Sodium [Lovenox] 40 mg SC QPM
06/05/24 18:30
Lactated Ringers [Lr] 1,000 ml IV 100 mls/hr
06/06/24 06:00
CBC/With Diff [Complete Blood Count/With Diff] IN AM
CMP [Comprehensive Metabolic Panel] IN AM
06/06/24 08:00
Ascorbic Acid [Vitamin C] 500 mg PO DAILY
Multivitamin [Theragran] 1 tablet PO DAILY
Pantoprazole [Protonix] 40 mg PO DAILY
06/07/24 06:00
CBC/With Diff [Complete Blood Count/With Diff] IN AM
CMP [Comprehensive Metabolic Panel] IN AM
06/07/24 16:00
Phenobarbital [Luminal] 64.8 mg PO TID
06/08/24 06:00
CMP [Comprehensive Metabolic Panel] IN AM
06/08/24 20:00
Thiamine HCl [Vitamin B1] 100 mg PO BID
06/09/24 16:00
Phenobarbital [Luminal] 32.4 mg PO TID
Abnormal Lab Results
06/05/24
07:27
WBC 3.9 L 10^3/uL
(4.8-10.8)
Hgb 19.3 H g/dL
(13.0-18.0)
Hct 55.2 H %
(39.0-52.0)
MCV 95.8 H fL
(80.0-94.0)
MCH 33.5 H pg
(27.0-31.0)
Absolute Lymphs (auto) 0.5 L 10^3/uL
(1.2-3.4)
Absolute Monos (auto) 0.7 H 10^3/uL
(0.1-0.6)
Lymphocytes % 13.7 L %
(20.5-51.1)
Monocytes % 18.6 H %
(1.7-9.3)
Chloride 87 L mmol/L
(98-107)
Carbon Dioxide 16 L mmol/L
(22-30)
BUN 21 H mg/dl
(9-20)
Glucose 202 H mg/dl
(70-99)
Calcium 10.4 H mg/dl
(8.4-10.2)
Total Bilirubin 3.1 H mg/dl
(0.2-1.3)
Direct Bilirubin 1.3 H mg/dl
(0.0-0.4)
GGT 741 H U/L
(15-73)
AST 290 H U/L
(17-59)
ALT 348 H U/L
(0-50)
Alkaline Phosphatase 189 H U/L
(38-126)
Total Protein 9.6 H g/dl
(6.3-8.2)
Albumin 5.9 H g/dl
(3.5-5.0)
Lipase 500 H U/L
(23-300)
06/05/24 07:27
06/05/24 07:27
Vital Signs
Initial and Last Documented VS:
Initial Vital Signs
Temp Pulse BP Pulse Ox
98.0 F 121 160/117 95
06/05/24 06:50 06/05/24 06:50 06/05/24 06:50 06/05/24 06:50
Last Documented Vital Signs
Temp Pulse Resp BP Pulse Ox
98.7 F 102 13 146/102 98
06/05/24 11:50 06/05/24 11:30 06/05/24 11:45 06/05/24 11:00 06/05/24 11:45
<Jackie Leonard MD, Resident - Last Filed: 06/05/24 16:25>
MDM/Problems Addressed
Differential Diagnosis Includes:
Alcohol withdrawal syndrome
Acute pancreatitis
Hepatitis
Cholangitis
MDM/Problems Addressed:
- IV Lorazepam 2gr
- NSS 1 L bolus
- CBC, CMP
- Abdomen US
<Jackie Leonard MD, Resident - Last Filed: 06/05/24 16:25>
*Critical Care Note
Total Time (30-74mins, 75-104mins- exclusive of procedures): Not Applicable
ED Attending Note
<Jackie Leonard MD, Resident - Last Filed: 06/05/24 16:25>
-
Portions of this chart may have been created with voice recognition software.� Occasional wrong word or��sound alike� substitutions may have occurred due to the inherent limitations of voice recognition software.
<Ez He, DO - Last Filed: 06/05/24 10:33>
ED Attending Note
Patient seen and examined by attending physician: Yes
I performed a history and physical exam of patient and discussed management with resident, I reviewed resident's note and agree with documented findings and plan of care.: Yes
ED Attending Note:
I reviewed and agree with history and treatment plan by Jackie Cabral MD. My exam revealed 38-year-old male hypertension, comfortable. Abdomen exam benign. Mild pancreatitis and alcohol withdrawal. Admit to hospitalist.
Discharge Plan
Departure
Patient Disposition: Admit
Date of Disposition: 06/05/24
Time of Disposition: 08:58
Presentation/result/management discussed w/ accepting MD/DO: Hospitalist
Discharge Problem:
Acute pancreatitis, Alcohol withdrawal
Interventions
Interventions:
*Risk Screen - Suicide Last Done: 06/05/24 12:30
*General Assessment Last Done: 06/05/24 08:04
*Neglect/Abuse Screening Last Done: 06/05/24 08:04
*ED COVID-19 Vaccine History Last Done: 06/05/24 12:23
*Nursing Disposition Last Done: 06/05/24 11:53
ED- Neurological Assessment Last Done: 06/05/24 08:04
ED-Psychological Assessment Last Done: 06/05/24 08:04
Discharge Date and Time
Discharge Date/Time: 06/05/24 11:54
[2024-06-05] MEDS: ATIVAN 2 MG IV (08:44)
[2024-06-05] MEDS: NSS 1000 IV (08:44)
[2024-06-05 09:59] LABS: Magnesium 1.8 mg/dl (1.6-2.3)
[2024-06-05 10:29] LABS: Direct Bilirubin 1.3 mg/dl (0.0-0.4)
[2024-06-05] MEDS: FOLVITE 50.2 MG IV (10:33)
[2024-06-05 11:18] LABS: INR 1.06; PT 14.1 Sec (11.4-14.6)
[2024-06-05] MEDS: PHENOBARBITAL 104 MG IV (12:09)
[2024-06-05] MEDS: LR 1000 IV ×2 (12:16→20:59)
[2024-06-05] MEDS: FOLVITE 1 MG PO (12:16)
--- NOTE | 2024-06-05 12:34 | HPS.HSE ---
Family Physician
-
Family Physician: * NONE
Chief Complaint
-
Alcohol withdrawal syndrome
History of Present Illness
38-year-old male alcoholic here with complaints of persistent vomiting and withdrawal symptoms for the past 48 hours.
He drinks alcohol on a daily basis, anywhere from half a pint to 1 pint of vodka.
Has had numerous hospitalizations for alcohol withdrawal syndrome, alcoholic ketoacidosis, pancreatitis, esophagitis.
Has been in multiple alcohol rehab programs including intensive outpatient therapy without success.
Tried oral naltrexone without success. Is not interested in intramuscular long-acting naltrexone.
He is interested in quitting alcohol but has a hard time doing so on his own.
Symptoms of nausea and vomiting started Saturday evening. He tried to drink some alcohol yesterday to alleviate the symptoms but only ended up vomiting more. Denies any abdominal pain.
Medical History
Past Medical History
Past Medical History: Reports Other
Additional Past Medical History:
Alcohol use disorder
Past Surgical History: Reports None
Social History
Tobacco: Non-smoker
Alcohol: Daily
Drug: Marijuana
Personal: Single
Living: With Family
Family History
Family History: Not pertinent
Allergies / Home Medications
Allergies reflects when Allergies were last updated in [employer].
Home Medications with original date entered in [employer]
Allergy/Medication List:
Allergies
Allergy/AdvReac Type Severity Reaction Status Date / Time
Sulfa (Sulfonamide Allergy Rash Verified 06/05/24 06:43
Antibiotics)
Home Medications
multivitamin with folic acid 400 mcg tablet (Tab-A-Bernie) 1 tab PO DAILY Supplement 10/03/21
ascorbic acid (vitamin C) 500 mg tablet (Vitamin C) 500 mg PO DAILY Supplement 02/11/24
folic acid 1 mg tablet 1 mg PO DAILY Supplement 02/11/24
magnesium oxide 400 mg PO Q48H Supplement 02/11/24
turmeric 400 mg capsule 400 mg PO Q48H Supplement 02/11/24
thiamine HCl (vitamin B1) 100 mg tablet 100 mg PO DAILY Supplement 03/06/24
pantoprazole 40 mg tablet,delayed release (Protonix) 40 mg PO DAILY Gastrointestinal Issue #30 tabs 03/08/24
potassium 99 mg tablet 99 mg PO Q48H Supplement 06/05/24
Review of Systems
-
History Source: Patient
A 12 point ROS was completed and negative except as noted: Yes
Physical Exam
Vital Signs
Vital Signs
Temp Pulse Resp BP Pulse Ox
98.7 F 102 13 146/102 98
06/05/24 11:50 06/05/24 11:30 06/05/24 11:45 06/05/24 11:00 06/05/24 11:45
Physical Exam
General: Well Developed, Well Nourished, No Apparent Distress and Comfortable
HEENT: NormoCephalic, Anicteric and Other (White coating on base of tongue that scrapes off but does not bleed); No Moist mucous membranes
Respiratory: Clear
Cardiac: S1/S2 and Regular Rhythm
GI: Soft, Non Tender and Non Distended
Musculoskeletal: No Clubbing, No Cyanosis and No Edema
Skin: Warm and Dry
Neuro: AO x 3
Hematologic/Lymphatic: No Lymphadenopathy
Psych: Calm
Laboratory Results
-
06/05/24 07:27
06/05/24 07:27
Laboratory Results
PT 14.1 Sec (11.4-14.6) 06/05/24 10:34
INR 1.06 06/05/24 10:34
Total Bilirubin 3.1 mg/dl (0.2-1.3) H 06/05/24 07:27
AST 290 U/L (17-59) H 06/05/24 07:27
ALT 348 U/L (0-50) H 06/05/24 07:27
Alkaline Phosphatase 189 U/L (38-126) H 06/05/24 07:27
Lipase 500 U/L (23-300) H 06/05/24 07:27
Impression/Plan
-
Alcohol withdrawal syndrome -admit to IMU. Start alcohol withdrawal protocol, thiamine, folic acid. Add phenobarbital and taper.
Alcoholic ketoacidosis -high anion gap metabolic acidosis, 33. Start IV fluids. Antiemetics ordered for persistent nausea due to acidosis.
Acute alcoholic hepatitis -elevated transaminases and bilirubin noted, mostly indirect hyperbilirubinemia. Ultrasound shows normal hepatobiliary anatomy. No stones or sludge or wall thickening. Increased hepatic echogenicity consistent with fatty
infiltration and steatosis noted. No focal lesions.
Elevated lipase noted but doubt clinical pancreatitis. Pancreas not well-visualized on ultrasound.
Discriminant function of 8.1, does not warrant starting steroids.
Severe alcohol use disorder -consult psychiatry for assistance. Will need rehab on discharge.
Coated tongue -due to alcohol abuse. This is not thrush. Treatment is oral hygiene including brushing of the tongue, alcohol abstinence.
Full code
--- NOTE | 2024-06-05 13:49 | CS.PSYCHR ---
Consult Summary - Psychiatry
-
Psychiatry consult for severe alcohol use disorder/withdrawal. 38 yo male admitted today in alcohol withdrawal. He admits to drinking a pint of vodka daily with last drink 2 days ago. Last treatment was a year ago at [facility]. He has had
several medical admissions for withdrawal since then. He states he wants to go home once medically stable and formulate a treatment plan from there. Explained highest likelihood of success would come from direct transfer to an inpatient rehab
facility but he refuses at this time. Denies depression.
UDS pending. denies drug use.
MSE- good eye contact. fully oriented. spontaneous fluent speech. goal directed. denies SI/HI/AVH. no delusions.
PMH- alcoholic ketoacidosis, pancreatitis, esophagitis.
Social- lives with parents. they are supportive. not working. has degree from [email or web address]
Family history- grandfather possible alcoholism
Past psych- denies inpatient treatment. tried sertraline at [facility] last year but felt nauseated and stopped it
A/P- 38 yo male with severe alcohol use disorder/withdrawal. Does not want inpatient rehab when medically stable but would benefit if he were motivated to pursue it. Would like to arrange outpatient treatment. Continue MSAS monitoring and phenobarb
taper. Psychiatry will sign off. Please contact team with further questions or concerns.
[2024-06-05 15:44] LABS: GGTP 741 U/L (15-73); Phosphorus 3.3 mg/dl (2.5-4.5)
[2024-06-05] MEDS: THIAMINE INJECTION 200 MG IV ×2 (16:29→23:36)
[2024-06-05] MEDS: MAG-TAB SR 84 MG PO (16:29)
[2024-06-05] MEDS: PHENOBARBITAL 97.5 MG IV ×2 (16:29→21:01)
[2024-06-05 18:00] LABS: Urine Albumin 1+ (Neg - Trace); Urine Bilirubin 1+ (Negative); Urine Character Clear (Clear); Urine Color Yellow; Urine Glucose Trace (Negative); Urine Ketone 3+ (Negative); Urine Leukocyte Trace (Negative); Urine Nitrite Negative (Negative); Urine Occult Blood Trace (Negative); Urine Specific Gravity 1.015 (<1.030); Urine Urobilinogen 1+ (Neg - 1+)
[2024-06-05] MEDS: LOVENOX 40 MG SC (18:06)
[2024-06-05 18:09] LABS: Amphetamines Negative (Negative); Barbiturates Positive (Negative); Benzodiazepines Positive (Negative); Buprenorphine Negative (Negative); Cocaine Negative (Negative); Marijuana Positive (Negative); Methadone Negative (Negative); Methamphetamines Negative (Negative); Opiates Negative (Negative); Phencyclidine Negative (Negative); Tricyclic Antidepressants Negative (Negative)
[2024-06-05 18:21] LABS: Urine Red Blood Cell 0-2 /HPF (0-2)
[2024-06-05 18:27] LABS: Fentanyl, Urine Negative (Negative)
--- NOTE | 2024-06-05 19:04 | PTCARENOTE ---
Admitted to 4, IMU monitors placed- SR/ST 80s-120s, BP 130s/100. AAOx3, LC/ RA. C/o nausea- no vomiting recently. Abd. slightly distended/ tender 12/15. Sipping on clear liquids. IVF infusing. MSAS 4- receiving Phenobarb taper. Resting
comfortably.
[2024-06-06] VITALS (12 sets, daily range): BP systolic 124–154; BP diastolic 88–113
--- NOTE | 2024-06-06 04:34 | PTCARENOTE ---
Pt received at beginning of shift resting in bed. AAOx3. Flat affect. Does not make much eye contact. Has denied nausea all shift. +bs. Using urinal at bed side. VSS. Afebrile. POX RA 97%. MSAS 1-4. Continues on Phenobarbital. IVF's infusing as
ordered. No change from previous assessment. Turns self in bed. Call lora remains within reach. Will continue to monitor.
[2024-06-06 04:40] LABS: % Basophils 1.3 % (0-2); % Eosinophils 0.5 % (0-6); % Lymphocytes 34.4 % (20.5-51.1); % Monocytes 13.5 % (1.7-9.3); % Neutrophils 50.3 % (42.2-75.2); Absolute Basophils 0.1 10^3/uL (0-0.2); Absolute Lymphocytes 1.3 10^3/uL (1.2-3.4); Absolute Monocytes 0.5 10^3/uL (0.1-0.6); Absolute Neutrophils 1.9 10^3/uL (1.4-6.5); Hematocrit 43.2 % (39.0-52.0); Hemoglobin 15.7 g/dL (13.0-18.0); Mean Corp Hgb Conc. 36.3 g/dL (33.0-37.0); Mean Corpuscular Hgb 33.8 pg (27.0-31.0); Mean Corpuscular Volume 92.9 fL (80.0-94.0); Mean Platelet Volume 10.9 fL (7.4-10.4); Nucleated Red Blood Cells % 0 % (-); Platelet Count 141 10^3/uL (130-400); Red Blood Cell Count 4.65 10^6/uL (4.70-6.10); Red Cell Dist. Width 12.4 % (11.5-14.5); White Blood Cell Count 3.8 10^3/uL (4.8-10.8)
[2024-06-06 05:29] LABS: ALT (SGPT) 236 U/L (0-50); AST (SGOT) 287 U/L (17-59); Albumin 3.8 g/dl (3.5-5.0); Alkaline Phosphatase 115 U/L (38-126); Blood Urea Nitrogen 11 mg/dl (9-20); Calcium 8.8 mg/dl (8.4-10.2); Carbon Dioxide 27 mmol/L (22-30); Chloride 96 mmol/L (98-107); Estimated Creatinine Clearance 123 ml/min; Glucose 92 mg/dl (70-99); Potassium 3.6 mmol/L (3.5-5.1); Sodium 134 mmol/L (135-145); Total Bilirubin 2.6 mg/dl (0.2-1.3); Total Protein 6.5 g/dl (6.3-8.2); eGFR > 60.00
[2024-06-06] MEDS: LR 1000 IV (05:59)
[2024-06-06] MEDS: VITAMIN C 500 MG PO (08:07)
[2024-06-06] MEDS: THERAGRAN 1 TABLET PO (08:07)
[2024-06-06] MEDS: PROTONIX 40 MG PO (08:07)
[2024-06-06] MEDS: FOLVITE 1 MG PO (08:07)
[2024-06-06] MEDS: THIAMINE INJECTION 200 MG IV ×3 (08:08→22:58)
[2024-06-06] MEDS: PHENOBARBITAL 97.5 MG IV ×3 (08:08→22:57)
--- NOTE | 2024-06-06 08:09 | W.PN.HOSP.TC ---
Today's Communication/Plan
-
Continue current care
Assessment / Plan
Assessment / Plan
Gen-AAOx3, NAD
HEENT-NC, AT, anicteric, clear oral mm
Neck-supple
CV-reg, no M, +S1/S2
Lungs-clear B/L
Abd-soft, NT, ND
Ext-no edema
Musculoskeletal-no cyanosis, clubbing
Skin-warm and dry
Neuro-grossly non-focal, minimal hand tremors
Psych-calm, cooperative
Alcohol withdrawal syndrome -improving symptoms. Continue alcohol withdrawal protocol, thiamine, folic acid, phenobarbital and taper.
Alcoholic ketoacidosis -improving. Bicarb up to 27.
Acute alcoholic hepatitis -elevated transaminases and bilirubin noted, mostly indirect hyperbilirubinemia. LFTs improving. Ultrasound shows normal hepatobiliary anatomy. No stones or sludge or wall thickening. Increased hepatic echogenicity
consistent with fatty infiltration and steatosis noted. No focal lesions.
Elevated lipase noted but doubt clinical pancreatitis. Pancreas not well-visualized on ultrasound.
Discriminant function of 8.1, does not warrant starting steroids.
Severe alcohol use disorder -appreciate psychiatry input. Patient refusing inpatient rehab. High risk for readmission, discussed with patient.
Hyponatremia - monitor for now.
Coated tongue -due to alcohol abuse. This is not thrush. Treatment is oral hygiene including brushing of the tongue, alcohol abstinence.
Full code
Dispo - possible discharge tomorrow if medically stable.
Anticipated Discharge: Within 24 hours
Subjective/Interval History
-
Date of Service: June 06, 2024
Patient seen and examined. No complaints.
Objective Data
-
Labs:
Laboratory Results
06/06/24
03:52
WBC 3.8 L
Hgb 15.7
Hct 43.2
Plt Count 141 D
Sodium 134 L
Potassium 3.6
Chloride 96 L
Carbon Dioxide 27
BUN 11
Creatinine 0.7
Glucose 92
Calcium 8.8 D
Total Bilirubin 2.6 H
AST 287 H
ALT 236 H
Alkaline Phosphatase 115
Vital Signs:
Vital Signs
Temp Pulse Resp BP Pulse Ox
97.8 F 57 15 131/98 98
06/06/24 04:31 06/06/24 06:00 06/06/24 06:00 06/06/24 06:00 06/06/24 06:00
I&O
06/05/24 06/06/24 06/07/24
06:59 06:59 06:59
Intake Total 2500 / 2500
Output Total 1100 / 1100
Balance 1400 / 1400
Review of Systems
-
History Source: Patient
All other systems: Reviewed and negative
--- NOTE | 2024-06-06 10:39 | CM ---
Addendum entered by Norma Lundy 06/07/24 13:01:
Walt has been followed by [facility] throughout his hospitalization. He is feeling better and will be going home with [facility] and outpatient rehab.
Family will transport home today.
Addendum entered by Norma Lundy 06/07/24 09:01:
Walt's parents are not actively drinking at home - this detail was documented incorrectly.
Original Note:
Cm met with Walt at bedside; IA completed.
Walt was admitted with alcohol withdrawal. He has had 8 ED visits and 7 hospitalizations in the past year. Known to [facility]. CM contacted Jeff with [facility] to make him aware that Walt is currently in IMU for alcohol withdrawal. Jeff will
be coming to the hospital this afternoon to speak with Walt and coordinate inpatient rehab services pending medical stability.
Walt lives at home with his parents and brother. Parents are actively drinking at home.
Walt is currently unemployed; independent amb and adls. He lives in a multi-level home on the 3rd floor; 28 steps to get to the 3rd floor. There is a back entrance to his home and there about 3-4 steps. Denies any +SDOHs.
Plan: Discharge in inpatient ETOH rehab when medically cleared. Cm will follow.
PCP: Unknown
Pharmacy: [facility] in [place]
[2024-06-06] MEDS: LOVENOX 40 MG SC (16:59)
--- NOTE | 2024-06-06 18:14 | PTCARENOTE ---
MSAS 2-4, receiving IV Phenobarb - no prns needed- restless this pm-SR/ST on tele- escorted/ambulated in halls. Tolerating PO diet. Voids adequate, no bm since Sat. but has not been eating for days. Emotional support provided.
[2024-06-07] VITALS: BP 121/87
[2024-06-07 02:00] VITALS: BP 117/88
[2024-06-07 04:00] VITALS: BP 126/98
[2024-06-07 05:00] LABS: % Eosinophils 1.7 % (0-6); % Immature Granulocytes 0.2 % (0-0.5); % Lymphocytes 37.7 % (20.5-51.1); % Monocytes 12.2 % (1.7-9.3); % Neutrophils 47.2 % (42.2-75.2); Absolute Eosinophils 0.1 10^3/uL (0-0.7); Absolute Lymphocytes 1.6 10^3/uL (1.2-3.4); Absolute Monocytes 0.5 10^3/uL (0.1-0.6); Absolute Neutrophils 1.9 10^3/uL (1.4-6.5); Hematocrit 46.7 % (39.0-52.0); Hemoglobin 16.3 g/dL (13.0-18.0); Mean Corp Hgb Conc. 34.9 g/dL (33.0-37.0); Mean Corpuscular Hgb 33.1 pg (27.0-31.0); Mean Corpuscular Volume 94.9 fL (80.0-94.0); Nucleated Red Blood Cells % 0 % (-); Platelet Count 129 10^3/uL (130-400); Red Blood Cell Count 4.92 10^6/uL (4.70-6.10); Red Cell Dist. Width 12.3 % (11.5-14.5); White Blood Cell Count 4.1 10^3/uL (4.8-10.8)
[2024-06-07 06:00] VITALS: BP 112/83
[2024-06-07 06:19] LABS: ALT (SGPT) 223 U/L (0-50); AST (SGOT) 175 U/L (17-59); Alkaline Phosphatase 99 U/L (38-126); Blood Urea Nitrogen 12 mg/dl (9-20); Calcium 9.4 mg/dl (8.4-10.2); Carbon Dioxide 28 mmol/L (22-30); Chloride 94 mmol/L (98-107); Estimated Creatinine Clearance > 125 ml/min; Glucose 99 mg/dl (70-99); Potassium 3.3 mmol/L (3.5-5.1); Sodium 131 mmol/L (135-145); Total Bilirubin 1.9 mg/dl (0.2-1.3); Total Protein 6.8 g/dl (6.3-8.2); eGFR > 60.00
[2024-06-07 08:00] VITALS: BP 116/90
--- NOTE | 2024-06-07 08:11 | W.PN.HOSP.TC ---
Today's Communication/Plan
-
Replete potassium
Check magnesium, phosphate
Discharge
Assessment / Plan
Assessment / Plan
Gen-AAOx3, NAD
HEENT-NC, AT, anicteric, clear oral mm
Neck-supple
CV-reg, no M, +S1/S2
Lungs-clear B/L
Abd-soft, NT, ND
Ext-no edema
Musculoskeletal-no cyanosis, clubbing
Skin-warm and dry
Neuro-grossly non-focal, improved hand tremors
Psych-calm, cooperative
Alcohol withdrawal syndrome -improving symptoms. Continue alcohol withdrawal protocol, thiamine, folic acid, phenobarbital and taper. Last dose of lorazepam was 06/05.
Alcoholic ketoacidosis -resolved.
Hypokalemia -will replete. Check magnesium, phosphate.
Acute alcoholic hepatitis -elevated transaminases and bilirubin noted, mostly indirect hyperbilirubinemia. LFTs improving. Ultrasound shows normal hepatobiliary anatomy. No stones or sludge or wall thickening. Increased hepatic echogenicity
consistent with fatty infiltration and steatosis noted. No focal lesions.
Elevated lipase noted but doubt clinical pancreatitis. Pancreas not well-visualized on ultrasound.
Discriminant function of 8.1, does not warrant starting steroids.
Severe alcohol use disorder -appreciate psychiatry input. Patient refusing inpatient rehab. High risk for readmission, discussed with patient. He plans to pursue outpatient alcohol rehab.
Hyponatremia - monitor for now.
Acute thrombocytopenia -suspect alcohol related, monitor for now.
Leukopenia noted.
Coated tongue -due to alcohol abuse. This is not thrush. Treatment is oral hygiene including brushing of the tongue, alcohol abstinence.
Full code
Dispo -patient requesting discharge today. Can discharge on phenobarbital taper, close outpatient follow-up. Informed patient not to drink alcohol with phenobarbital, avoid driving, avoid other sedatives. His brother's girlfriend is an alcohol
rehab therapy manager and she can assist with his outpatient needs.
35 minutes spent in discharge process.
Anticipated Discharge: Today
Subjective/Interval History
-
Date of Service: June 07, 2024
Patient seen and examined. No complaints.
Objective Data
-
Labs:
Laboratory Results
06/07/24
04:12
WBC 4.1 L
Hgb 16.3
Hct 46.7
Plt Count 129 L
Sodium 131 L
Potassium 3.3 L
Chloride 94 L
Carbon Dioxide 28
BUN 12
Creatinine 0.6 L
Glucose 99
Calcium 9.4
Total Bilirubin 1.9 H
AST 175 H
ALT 223 H
Alkaline Phosphatase 99
Vital Signs:
Vital Signs
Temp Pulse Resp BP Pulse Ox
98.2 F 70 12 112/83 96
06/07/24 03:00 06/07/24 06:00 06/07/24 06:00 06/07/24 06:00 06/06/24 19:14
I&O
06/06/24 06/07/24 06/08/24
06:59 06:59 06:59
Intake Total 2500 / 2500 2120 / 2120
Output Total 1100 / 1100 4100 / 4100
Balance 1400 / 1400 -1979 / -1979
Review of Systems
-
History Source: Patient
All other systems: Reviewed and negative
--- NOTE | 2024-06-07 08:19 | W.DS.TRANS ---
DC Summary - [employer]
-
Discharge Instructions:
Discharge Diagnosis/Procedures Alcohol withdrawal syndrome, electrolyte
abnormalities, acute alcoholic hepatitis,
alcoholic ketoacidosis
Diet Regular
Activity As tolerated
Driving Restrictions No driving for 1 week
Bathing Restrictions None
Instructions:
Stand-Alone Forms:
Changes to Home Medications: No
Discharge Medications:
DC Medications w/original date entered in [email or web address]
multivitamin with folic acid 400 mcg tablet (Tab-A-Bernie) 1 tab PO DAILY Supplement 10/03/21
ascorbic acid (vitamin C) 500 mg tablet (Vitamin C) 500 mg PO DAILY Supplement 02/11/24
magnesium oxide 400 mg PO Q48H Supplement 02/11/24
pantoprazole 40 mg tablet,delayed release (Protonix) 40 mg PO DAILY Gastrointestinal Issue #30 tabs 03/08/24
folic acid 1 mg tablet 1 mg PO DAILY #30 tabs 06/07/24
phenobarbital 32.4 mg tablet 32.4 mg PO TID #18 tabs 06/07/24
thiamine HCl (vitamin B1) 100 mg tablet 100 mg PO BID #60 tabs 06/07/24
Home Medication Changes
Pending Results: No
[2024-06-07] MEDS: FOLVITE 1 MG PO (08:35)
[2024-06-07] MEDS: PHENOBARBITAL 97.5 MG IV (08:35)
[2024-06-07] MEDS: VITAMIN C 500 MG PO (08:36)
[2024-06-07] MEDS: THIAMINE INJECTION 200 MG IV (08:36)
[2024-06-07] MEDS: PROTONIX 40 MG PO (08:36)
[2024-06-07] MEDS: THERAGRAN 1 TABLET PO (08:36)
[2024-06-07 08:40] LABS: Magnesium 1.8 mg/dl (1.6-2.3); Phosphorus 2.8 mg/dl (2.5-4.5)
[2024-06-07] MEDS: KCL 40 MEQ PO (08:49)
[2024-06-07 10:00] VITALS: BP 113/93
[2024-06-07] MEDS: MAG-TAB SR 84 MG PO (13:36)
== END 2024-06-07 13:52 | disposition home or self-care (01) | DRG 897 ==
LOC: IMU 10:16
PROVIDERS: ADMITTING PHYSICIAN Hospitalist; EMERGENCY PHYSICIAN Emergency Medicine; OTHER PHYSICIAN Psychiatry & Neurology Psychiatry
DX: F10.239 Alcohol dependence with withdrawal, unspecified (principal); E87.29 Other acidosis; E87.1 Hypo-osmolality and hyponatremia; F17.200 Nicotine dependence, unspecified, uncomplicated; E87.6 Hypokalemia; K70.10 Alcoholic hepatitis without ascites; D69.6 Thrombocytopenia, unspecified
CPT/HCPCS: 76700; 80053; 80306; 80307; 81003; 81015; 82010; 82077; 82248; 82977; 83690; 83735; 84100; 85025; 85610; 96361; 96374; 96375; 99285

== ENCOUNTER 2024-07-07 17:21 | Inpatient (IN) | payer OTHER, SELFPAY ==
[2024-07-07] VITALS (10 sets, daily range): BP systolic 118–158; BP diastolic 74–110; BMI 21.9; BMI 22.1
[2024-07-07 08:22] LABS: Glucose - Point of Care 207 mg/dl (70-99)
--- NOTE | 2024-07-07 10:24 | ED.GENMED ---
Addendum entered and electronically signed by Stevie Dorman DO 07/07/24 13:07:
Update patient still tachycardic still jittery, still nauseous not tolerating fluids will require admission close monitoring for alcohol withdrawal DTs electrolyte replacement alcoholic ketoacidosis
Original Note:
History of Present Illness
General
Chief Complaint: Alcohol Problem
Source: patient and records
Exam Limitations: none
Time Seen by Provider: 07/07/24 09:55
Nursing documentation reviewed up to this point in time: agreed with
History of Present Illness
History of Present Illness:
38-year-old male alcoholic last drank half a pint of vodka 24 hours ago presents with nausea vomiting greater than 100 times did have some chills no fevers states he gets acid buildup when he goes into withdrawals been admitted before for this,
apparently is in an outpatient rehab, has been in various rehabs previously
Past History
Past History
ED Past Medical History: HTN and Other (Alcohol abuse, reflux)
ED Past Surgical History: None
Social History
Tobacco: Smoker
Alcohol: Chronic alcoholic
Drug: Marijuana
Personal: Single
Living: with family
Employment: Employed
Family History
Family History: Other (Noncontributory)
Review of Systems
Review of Systems
All Other Systems: Not applicable
Constitutional: Reports fatigue and chills; Denies fever
EENT: Reports no symptoms
Respiratory: Reports no symptoms
Cardiac: Denies chest pain or diaphoresis
ABD/GI: Reports abdominal pain, nausea and vomiting
Skin: Reports no symptoms
Neurological: Reports weakness
Psychiatric: Reports anxiety; Denies depression
Phy Exam
Physical Exam
Physical Exam:
Physical Exam
General: 38 male looks uncomfortable tremulous disheveled
Neck: Lips are dry
Heart: s1/s2 regular rate and rhythm, no murmur. equal radial pulses.
Lungs: no acute respiratory distress. clear bilaterally
Abdomen: Positive epigastric tenderness
Neuro: alert and oriented. no focal neurological deficits resting tremor
Skin: no rash
Psychiatric: Anxious but cooperative
Extremities: no edema. No joint
Scores
Withdrawal Assessment of Alcohol
Withdrawal Assessment Completed?: Yes
Nausea and Vomiting: Mild nausea with no vomiting
Tactile Disturbances: Very mild itching, pins and needles, burning or numbness
Tremor: Moderate, with patient's arms extended
Auditory Disturbances: Not present
Paroxysmal Sweats: No sweat visible
Visual Disturbances: Very mild sensitivity
Anxiety: Mild anxiety
Headache, Fullness in Head: Very mild
Agitation: Moderately fidgety and restless
Orientation and clouding of sensorium: Oriented and can do serial additions
Total CIWA Score: 13
Alcohol Withdrawal Medication Recommendation: Equal to MSAS Score 5-7. Lorazepam 1mg IV or PO NOW & re-assess q2hrs
Sepsis
Sepsis Screening
Sepsis Assessment: Sepsis Ruled Out
Sepsis Screen
Sepsis Screen: Sepsis Ruled Out
Date: 07/07/24
Time: 13:01
Course
Orders/Labs/Results
Orders:
Orders
07/07/24 08:09
Electrocardiogram (*1) Urgent
Reason for Study: Tachycardia
EKG- Treatment ONCE
07/07/24 10:14
Add On- LAB Urgent
Tests Added?: magnesium
07/07/24 10:22
0.9% Sodium Chloride 1000 ml [Nss] 1,000 ml IV BOLUS
Lorazepam [Ativan] 1 mg IV NOW STA
Ondansetron Injectable [Zofran] 4 mg IV NOW STA
Pantoprazole [Protonix IV] 40 mg IV NOW STA
07/07/24 10:52
Alcohol Urgent
Complete Blood Count/With Diff Urgent
07/07/24 12:16
Comprehensive Metabolic Panel Urgent
Lipase Urgent
Magnesium Urgent
07/07/24 12:56
Magnesium Sulfate 2 Gram/50 ml [Magnesium Sulfate] 2 gram in 50 ml IV NOW
07/07/24 13:00
Dextrose 5%/Water 1000 ml [D5w] 1,000 ml Sodium Bicarbonate 150 meq IV 250 mls/hr
Abnormal Lab Results
07/07/24 07/07/24 07/07/24
08:18 10:52 12:16
MCH 32.6 H pg
(27.0-31.0)
Absolute Neuts (auto) 8.4 H 10^3/uL
(1.4-6.5)
Absolute Lymphs (auto) 0.8 L 10^3/uL
(1.2-3.4)
Absolute Monos (auto) 0.8 H 10^3/uL
(0.1-0.6)
Neutrophils % 83.4 H %
(42.2-75.2)
Lymphocytes % 8.3 L %
(20.5-51.1)
Sodium 134 L mmol/L
(135-145)
Chloride 97 L mmol/L
(98-107)
Carbon Dioxide 12 L* mmol/L
(22-30)
Glucose 152 H mg/dl
(70-99)
Magnesium 1.5 L mg/dl
(1.6-2.3)
AST 61 H U/L
(17-59)
ALT 56 H U/L
(0-50)
Albumin 5.3 H g/dl
(3.5-5.0)
POC Glucose 207 H mg/dl
(70-99)
07/07/24 10:52
07/07/24 12:16
Vital Signs
Initial and Last Documented VS:
Initial Vital Signs
Temp Pulse Resp BP Pulse Ox
98.4 F 115 22 158/110 100
07/07/24 08:04 07/07/24 08:04 07/07/24 08:04 07/07/24 08:04 07/07/24 08:04
Last Documented Vital Signs
Temp Pulse Resp BP Pulse Ox
98.4 F 115 19 129/86 100
07/07/24 08:04 07/07/24 12:00 07/07/24 12:00 07/07/24 12:00 07/07/24 12:00
MDM/Problems Addressed
Differential Diagnosis Includes:
AKA dehydration doubt DKA as he is not diabetic alcohol withdrawal delirium tremens impending DTs
MDM/Problems Addressed:
Nausea vomiting alcoholism
Chronic conditions affecting care: Psychiatric illness
Acute Exacerbation and/or Progression of Chronic Illness: Psychiatric illness
*Pulse Oximetry
Patient hypoxic: no
*EKG
Interpreted by ED Provider?: Yes
Interpretation: abnormal
Comparison EKG: no comparison EKG present
Heart Rate: 78
Rate: normal
Rhythm: sinus
Ischemia: non-specific ST changes
*Kelly Machine Operator Interpretation
Rate: tachycardiac
Interpretation: abnormal
Heart Rate: 118
Rhythm: sinus
*Critical Care Note
Total Time (30-74mins, 75-104mins- exclusive of procedures): 31
Update Note
Update Note:
Update labs are noted, there was a delay apparently hemolyzed, patient clinically feeling better still acidotic based on labs will require admission will switch to D5 with bicarb replace his magnesium
ED Attending Note
-
Portions of this chart may have been created with voice recognition software.� Occasional wrong word or��sound alike� substitutions may have occurred due to the inherent limitations of voice recognition software.
Discharge Plan
Departure
Patient Disposition: Admit
Date of Disposition: 07/07/24
Time of Disposition: 12:56
Admit to: Telemetry
Presentation/result/management discussed w/ accepting MD/DO: Hospitalist
Patient with high blood pressure during this ER visit?: No
Condition: Fair
Covid-19: Not Applicable
Discharge Problem:
Alcohol use disorder, Alcoholic ketoacidosis, Metabolic acidosis, Alcohol dependence with withdrawal, unspecified, Alcohol withdrawal
Prescriptions:
No Action
multivitamin with folic acid [Tab-A-Bernie] 1 TABLET tablet
1 tab PO DAILY
ascorbic acid (vitamin C) [Vitamin C] 500 mg Tablet
500 mg PO DAILY
magnesium oxide 400 mg magnesium Tablet
400 mg PO Q48H
pantoprazole [Protonix] 40 mg tablet,delayed release (DR/EC)
40 mg PO DAILY Qty: 30 0RF
folic acid 1 mg Tablet
1 mg PO DAILY Qty: 30 0RF
phenobarbital 32.4 mg Tablet
32.4 mg PO TID Qty: 18 0RF
Rx Instructions:
2 tabs (64.8mg) 3x/day for 6 doses, then 1 tab (32.4mg) 3x/day for 6 doses.
thiamine HCl (vitamin B1) 100 mg Tablet
100 mg PO BID Qty: 60 0RF
Referrals:
UNKNOWN - PT DOES,NOT KNOW [Family Provider] -
Interventions
Interventions:
*General Assessment Last Done: 07/07/24 10:11
*Neglect/Abuse Screening Last Done: 07/07/24 10:11
*ED COVID-19 Vaccine History Last Done: 07/07/24 10:11
ED- Neurological Assessment Last Done: 07/07/24 10:11
ED-Psychological Assessment Last Done: 07/07/24 10:11
Discharge Date and Time
Print Language: PASHTO
[2024-07-07] MEDS: ATIVAN 1 MG IV ×3 (11:00→16:04)
[2024-07-07] MEDS: NSS 1000 IV (11:01)
[2024-07-07] MEDS: PROTONIX IV 40 MG IV (11:01)
[2024-07-07] MEDS: ZOFRAN 4 MG IV (11:01)
[2024-07-07 11:13] LABS: % Basophils 0.2 % (0-2); % Immature Granulocytes 0.3 % (0-0.5); % Lymphocytes 8.3 % (20.5-51.1); % Monocytes 7.8 % (1.7-9.3); % Neutrophils 83.4 % (42.2-75.2); Absolute Lymphocytes 0.8 10^3/uL (1.2-3.4); Absolute Monocytes 0.8 10^3/uL (0.1-0.6); Absolute Neutrophils 8.4 10^3/uL (1.4-6.5); Hematocrit 48.3 % (39.0-52.0); Hemoglobin 16.8 g/dL (13.0-18.0); Mean Corp Hgb Conc. 34.8 g/dL (33.0-37.0); Mean Corpuscular Hgb 32.6 pg (27.0-31.0); Mean Corpuscular Volume 93.6 fL (80.0-94.0); Mean Platelet Volume 10.1 fL (7.4-10.4); Nucleated Red Blood Cells % 0 % (-); Platelet Count 249 10^3/uL (130-400); Red Blood Cell Count 5.16 10^6/uL (4.70-6.10); Red Cell Dist. Width 12.4 % (11.5-14.5); White Blood Cell Count 10.1 10^3/uL (4.8-10.8)
[2024-07-07 11:33] LABS: Alcohol None Detected
[2024-07-07 12:54] LABS: ALT (SGPT) 56 U/L (0-50); AST (SGOT) 61 U/L (17-59); Albumin 5.3 g/dl (3.5-5.0); Alkaline Phosphatase 96 U/L (38-126); Blood Urea Nitrogen 16 mg/dl (9-20); Calcium 8.9 mg/dl (8.4-10.2); Carbon Dioxide 12 mmol/L (22-30); Chloride 97 mmol/L (98-107); Estimated Creatinine Clearance 105 ml/min; Glucose 152 mg/dl (70-99); Lipase 64 U/L (23-300); Magnesium 1.5 mg/dl (1.6-2.3); Potassium 4.5 mmol/L (3.5-5.1); Sodium 134 mmol/L (135-145); Total Bilirubin 1.1 mg/dl (0.2-1.3); Total Protein 8.1 g/dl (6.3-8.2); eGFR > 60.00
--- NOTE | 2024-07-07 13:06 | ED.GENMED ---
History of Present Illness
General
Chief Complaint: Alcohol Problem
Time Seen by Provider: 07/07/24 09:55
Past History
Past History
ED Past Medical History: HTN and Other (Alcohol abuse, reflux)
ED Past Surgical History: None
Social History
Tobacco: Smoker
Alcohol: Chronic alcoholic
Drug: Marijuana
Personal: Single
Living: with family
Employment: Employed
Family History
Family History: Other (Noncontributory)
Sepsis
Sepsis Screen
Sepsis Screen: Sepsis Ruled Out
Date: 07/07/24
Time: 13:06
Course
Orders/Labs/Results
Orders:
Orders
07/07/24 08:09
Electrocardiogram (*1) Urgent
Reason for Study: Tachycardia
EKG- Treatment ONCE
07/07/24 10:14
Add On- LAB Urgent
Tests Added?: magnesium
07/07/24 10:22
0.9% Sodium Chloride 1000 ml [Nss] 1,000 ml IV BOLUS
Lorazepam [Ativan] 1 mg IV NOW STA
Ondansetron Injectable [Zofran] 4 mg IV NOW STA
Pantoprazole [Protonix IV] 40 mg IV NOW STA
07/07/24 10:52
Alcohol Urgent
Complete Blood Count/With Diff Urgent
07/07/24 12:16
Comprehensive Metabolic Panel Urgent
Lipase Urgent
Magnesium Urgent
07/07/24 12:56
Magnesium Sulfate 2 Gram/50 ml [Magnesium Sulfate] 2 gram in 50 ml IV NOW
07/07/24 13:00
Dextrose 5%/Water 1000 ml [D5w] 1,000 ml Sodium Bicarbonate 150 meq IV 250 mls/hr
07/07/24 13:05
Lorazepam [Ativan] 1 mg IV NOW STA
Abnormal Lab Results
07/07/24 07/07/24 07/07/24
08:18 10:52 12:16
MCH 32.6 H pg
(27.0-31.0)
Absolute Neuts (auto) 8.4 H 10^3/uL
(1.4-6.5)
Absolute Lymphs (auto) 0.8 L 10^3/uL
(1.2-3.4)
Absolute Monos (auto) 0.8 H 10^3/uL
(0.1-0.6)
Neutrophils % 83.4 H %
(42.2-75.2)
Lymphocytes % 8.3 L %
(20.5-51.1)
Sodium 134 L mmol/L
(135-145)
Chloride 97 L mmol/L
(98-107)
Carbon Dioxide 12 L* mmol/L
(22-30)
Glucose 152 H mg/dl
(70-99)
Magnesium 1.5 L mg/dl
(1.6-2.3)
AST 61 H U/L
(17-59)
ALT 56 H U/L
(0-50)
Albumin 5.3 H g/dl
(3.5-5.0)
POC Glucose 207 H mg/dl
(70-99)
07/07/24 10:52
07/07/24 12:16
Vital Signs
Initial and Last Documented VS:
Initial Vital Signs
Temp Pulse Resp BP Pulse Ox
98.4 F 115 22 158/110 100
07/07/24 08:04 07/07/24 08:04 07/07/24 08:04 07/07/24 08:04 07/07/24 08:04
Last Documented Vital Signs
Temp Pulse Resp BP Pulse Ox
98.4 F 115 19 129/86 100
07/07/24 08:04 07/07/24 12:00 07/07/24 12:00 07/07/24 12:00 07/07/24 12:00
ED Attending Note
-
Portions of this chart may have been created with voice recognition software.� Occasional wrong word or��sound alike� substitutions may have occurred due to the inherent limitations of voice recognition software.
Discharge Plan
Departure
Patient Disposition: Admit
Date of Disposition: 07/07/24
Time of Disposition: 12:56
Admit to: Telemetry
Presentation/result/management discussed w/ accepting MD/DO: Hospitalist
Patient with high blood pressure during this ER visit?: No
Condition: Fair
Covid-19: Not Applicable
Discharge Problem:
Alcohol use disorder, Alcoholic ketoacidosis, Metabolic acidosis, Alcohol dependence with withdrawal, unspecified, Alcohol withdrawal
Prescriptions:
No Action
multivitamin with folic acid [Tab-A-Bernie] 1 TABLET tablet
1 tab PO DAILY
ascorbic acid (vitamin C) [Vitamin C] 500 mg Tablet
500 mg PO DAILY
magnesium oxide 400 mg magnesium Tablet
400 mg PO Q48H
pantoprazole [Protonix] 40 mg tablet,delayed release (DR/EC)
40 mg PO DAILY Qty: 30 0RF
folic acid 1 mg Tablet
1 mg PO DAILY Qty: 30 0RF
thiamine HCl (vitamin B1) 100 mg Tablet
100 mg PO BID Qty: 60 0RF
Referrals:
UNKNOWN - PT DOES,NOT KNOW [Family Provider] -
Interventions
Interventions:
*General Assessment Last Done: 07/07/24 10:11
*Neglect/Abuse Screening Last Done: 07/07/24 10:11
*ED COVID-19 Vaccine History Last Done: 07/07/24 10:11
ED- Neurological Assessment Last Done: 07/07/24 10:11
ED-Psychological Assessment Last Done: 07/07/24 10:11
Discharge Date and Time
Print Language: KYRGYZ
[2024-07-07] MEDS: MAGNESIUM SULFATE 50 IV (13:07)
[2024-07-07] MEDS: SODIUM BICARBONATE 1150 MEQ IV ×2 (13:45→20:15)
--- NOTE | 2024-07-07 17:41 | HPS.HSE ---
Addendum entered and electronically signed by Janna Scott MD 07/07/24 18:34:
I personally performed a history and physical exam of the patient and discussed management with the resident. I reviewed the resident's note and agree with the documented findings and plan of care HPI/CC.
GENERAL: well developed, well nourished, male in no apparent distress
HEENT: NC/AT
HEART: regular rate and rhythm, +S1, +S2--tachycardic (HTN on monitor)
LUNGS : clear to auscultation bilaterally
ABDOM: soft, nontender, nondistended, + bowel sounds
EXT: no cyanosis, clubbing, or edema
NEUROLOGIC: grossly intact--very mild tremors
Alcoholic Ketoacidosis --AGAP 25--IVF: D5W/Sodium Bicarb 150 mEQ 250 ml//hr--Thiamine, Folate--would admit to IMU as high likelihood for DTs
Alcohol Withdrawal Syndrome with impending DTs--pt tachycardic and hypertensive--last drink was at noon on 07/06/25 (1/2 pt of vodka daily)--start phenobarb taper, MSAS--Case Management for [facility] Consult --pt would benefit from inpt alcohol
treatment but likely will not agree
Tachycardia --combination of dehydration from vomiting and early DTs--cont IVF and WD protocols
Hypomagnesemia --from ETOH use--replete
DVT proph
code status -- FULL CODE
Original Note:
Family Physician
-
Family Physician: Patient Does Not Know
Chief Complaint
-
Irretractable Vomiting
History of Present Illness
Walt Moreno is a 38-year-old male with a past medical history of alcohol abuse, GERD, HTN, and multiple ED visits/conditions for alcohol withdrawal who presented today due to intractable vomiting, nausea, loss of appetite, and restlessness
since approximately 8 PM last night. The patient states that his last drink was approximately 24 hours prior to presentation at approximately 12 PM yesterday. Patient notes that he was last admitted to the hospital for alcohol withdrawal
approximately 1 month ago, and discharged. He remains sober for around 21 days and then relapsed about 9 days ago. Over the past 9 days he endorses drinking half a pint of vodka per day and then abruptly stopping 24 hours prior to presentation.
Medical History
Past Medical History
Past Medical History: Reports Other
Additional Past Medical History:
Alcohol Use Disorder, GERD
Past Surgical History: Reports Other
Additional Past Surgical History:
Dental Surgery
Social History
Tobacco: Other (Admits to Smoking 1/2 PPD while at [facility] Over the Past Year )
Alcohol: Chronic Alcoholic
Drug: Marijuana
Personal: Single
Living: With Family
Family History
Family History: Not pertinent
Allergies / Home Medications
Allergies reflects when Allergies were last updated in [employer].
Home Medications with original date entered in [employer]
Allergy/Medication List:
Sulfa - Rash
Review of Systems
-
History Source: Patient
A 12 point ROS was completed and negative except as noted: Yes
Physical Exam
Vital Signs
Vital Signs
Temp Pulse Resp BP Pulse Ox
98.7 F 115 21 126/81 100
07/07/24 16:00 07/07/24 16:15 07/07/24 16:15 07/07/24 16:00 07/07/24 16:15
Physical Exam
General: Well Developed, Well Nourished and Other (Restless)
HEENT: NormoCephalic, Anicteric and Other (Extraocular Movements Intact, without nystagmus; mucosal membranes dry )
Respiratory: Clear
Cardiac: S1/S2, Regular Rhythm and Tachycardia
GI: Soft, Non Tender, Non Distended and Normal Bowel Sounds
Musculoskeletal: No Cyanosis and No Edema
Skin: Warm, Dry and Other (No Jaundice)
Neuro: Awake, Alert and Other (No tremor, no asterixis; restless lower extremities)
Psych: Anxious
Laboratory Results
-
07/07/24 10:52
07/07/24 12:16
Laboratory Results
Total Bilirubin 1.1 mg/dl (0.2-1.3) 07/07/24 12:16
AST 61 U/L (17-59) H 07/07/24 12:16
ALT 56 U/L (0-50) H 07/07/24 12:16
Alkaline Phosphatase 96 U/L (38-126) 07/07/24 12:16
Lipase 64 U/L (23-300) 07/07/24 12:16
Data Reviewed
-
Lab Data: Labs Reviewed by me and Discussed with Patient
Impression/Plan
-
PLAN:
1. Alcoholic Ketoacidosis
- Anion Gap Metabolic Acidosis on CMP
- Anion Gap of 25; CBC/CMP in AM; add on PT/PTT, GGT, Phos
- IVF: D5W/Sodium Bicarb 150 mEQ 250 ml//hr
- Thiamine, Folate
2. Alcohol Withdrawal Syndrome
- Approxiamtely 24 hours since last drink
- No tremors currently, however patient restless and knows the prodrome of past events
- Serial MSAS
- Phenobarbital Taper
- Case Management for [facility] Consult
3. Tachycardia
- Likely secondary to dehydration; see IVF above.
- EKG in ED; NSR
4. Hypomagnesemia
- 1.5 at admission; given 2g in ED
- Repeat in AM
[2024-07-07] MEDS: LOVENOX 40 MG SC (19:45)
[2024-07-07] MEDS: PHENOBARBITAL 104 MG IV (19:45)
[2024-07-07] MEDS: ATIVAN 1 MG PO (20:07)
[2024-07-07] MEDS: THIAMINE INJECTION 200 MG IV (20:15)
[2024-07-07 20:34] LABS: Urine Albumin Trace (Neg - Trace); Urine Bilirubin Negative (Negative); Urine Character Clear (Clear); Urine Color Yellow; Urine Glucose Trace (Negative); Urine Ketone 3+ (Negative); Urine Leukocyte 2+ (Negative); Urine Nitrite Negative (Negative); Urine Occult Blood Negative (Negative); Urine Specific Gravity 1.015 (<1.030); Urine Urobilinogen Negative (Neg - 1+)
[2024-07-07 20:38] LABS: Amphetamines Negative (Negative); Barbiturates Negative (Negative); Benzodiazepines Positive (Negative); Buprenorphine Negative (Negative); Cocaine Negative (Negative); Marijuana Positive (Negative); Methadone Negative (Negative); Methamphetamines Negative (Negative); Opiates Negative (Negative); Phencyclidine Negative (Negative); Tricyclic Antidepressants Negative (Negative)
[2024-07-07 20:38] LABS: APTT 27.8 Sec (23.4-35.0); INR 1.11; PT 14.9 Sec (11.4-14.6)
[2024-07-07 20:42] LABS: Phosphorus 1.8 mg/dl (2.5-4.5)
[2024-07-07 20:48] LABS: B-Hydroxybutyrate 2.87 mmol/L (0.02-0.27)
[2024-07-07 20:57] LABS: Fentanyl, Urine Negative (Negative)
[2024-07-07 21:13] LABS: GGTP 160 U/L (15-73)
[2024-07-07 21:16] LABS: Urine Bacteria Few (Negative); Urine Hyaline Cast 0-2 /LPF (0-2); Urine Mucus Moderate; Urine Red Blood Cell 0-2 /HPF (0-2); Urine White Cell 50-60 /HPF (0-5)
[2024-07-07 21:31] LABS: Vitamin B12 522 pg/ml (239-931)
[2024-07-07] MEDS: PHENOBARBITAL 97.5 MG IV (22:55)
[2024-07-08] VITALS (12 sets, daily range): BP systolic 111–147; BP diastolic 75–103; BMI 23.5
[2024-07-08] MEDS: SODIUM BICARBONATE 1150 MEQ IV ×3 (00:04→09:47)
--- NOTE | 2024-07-08 00:21 | PTCARENOTE ---
Assumed care for patient overnight, received report from sindy CISNEROS. Pt AAOx3, a little withdrawn. NSR to sinus tach on tele. HR is 90's-110's BP 111/75. MSAS score 5 upon initial assessment, administered PRN Ativan see SEP. Phenobarbital gtt
infused see SEP. No tremors assessed, pt states when he sits up/forward he gets dizziness/lightheadedness. Pt flushed no notable diaphoresis. A-febrile. After waking pt he was slightly disoriented but was able to quickly be reoriented. Pt states 'I
am tired, I just want to sleep.' Assessment charted. Oriented to the unit and call lora. Call lora is within reach.
[2024-07-08 04:35] LABS: Hematocrit 38.4 % (39.0-52.0); Hemoglobin 13.8 g/dL (13.0-18.0); Mean Corp Hgb Conc. 35.9 g/dL (33.0-37.0); Mean Corpuscular Hgb 32.3 pg (27.0-31.0); Mean Corpuscular Volume 89.9 fL (80.0-94.0); Mean Platelet Volume 9.7 fL (7.4-10.4); Platelet Count 152 10^3/uL (130-400); Red Blood Cell Count 4.27 10^6/uL (4.70-6.10); Red Cell Dist. Width 11.9 % (11.5-14.5); White Blood Cell Count 5.9 10^3/uL (4.8-10.8)
[2024-07-08 05:14] LABS: ALT (SGPT) 41 U/L (0-50); AST (SGOT) 49 U/L (17-59); Albumin 3.7 g/dl (3.5-5.0); Alkaline Phosphatase 81 U/L (38-126); Blood Urea Nitrogen 10 mg/dl (9-20); Calcium 8.1 mg/dl (8.4-10.2); Carbon Dioxide 39 mmol/L (22-30); Chloride 88 mmol/L (98-107); Estimated Creatinine Clearance > 125 ml/min; Glucose 141 mg/dl (70-99); Magnesium 2.2 mg/dl (1.6-2.3); Potassium 2.8 mmol/L (3.5-5.1); Sodium 132 mmol/L (135-145); Total Bilirubin 1.3 mg/dl (0.2-1.3); Total Protein 6.4 g/dl (6.3-8.2); eGFR > 60.00
[2024-07-08] MEDS: KCL 270 MEQ IV ×2 (08:33→13:57)
[2024-07-08] MEDS: SODIUM BICARBONATE IV ×2 (08:33→12:54)
[2024-07-08] MEDS: PHENOBARBITAL 97.5 MG IV ×3 (08:33→21:07)
[2024-07-08] MEDS: FOLVITE 1 MG PO (08:34)
[2024-07-08] MEDS: THIAMINE INJECTION 200 MG IV ×2 (08:34→21:08)
[2024-07-08] MEDS: VITAMIN C 500 MG PO (08:34)
--- NOTE | 2024-07-08 12:00 | PTCARENOTE ---
Pt calm and cooperative throughout the day, MSAS of 1. Transfer to tele. IVFs changed to NS @ 100ml/hr. NSR on monitor. OOB w/ standby assist.
[2024-07-08] MEDS: NSS 1000 IV ×2 (13:57→23:04)
[2024-07-08 14:27] LABS: Potassium 3.3 mmol/L (3.5-5.1)
--- NOTE | 2024-07-08 15:49 | W.PN.HOSP.TC ---
Addendum entered and electronically signed by Janna Scott MD 07/08/24 16:25:
I saw and evaluated the patient independently. I reviewed the resident�s note and agree with findings and plan as documented by Dr. Sebastian.
GENERAL: well developed, well nourished, male in no apparent distress
HEENT: NC/AT
HEART: regular rate and rhythm, +S1, +S2-
LUNGS : clear to auscultation bilaterally
ABDOM: soft, nontender, nondistended, + bowel sounds
EXT: no cyanosis, clubbing, or edema
NEUROLOGIC: grossly intact--no tremors
Alcoholic Ketoacidosis --AGAP closed--Thiamine, Folate
Alcohol Withdrawal Syndrome with impending DTs--pt tachycardic and hypertensive--last drink was at noon on 07/06/25 (1/2 pt of vodka daily)--start phenobarb taper, MSAS--Case Management for [facility] Consult --pt would benefit from inpt alcohol
treatment but likely will not agree
Tachycardia --combination of dehydration from vomiting and early DTs--cont IVF and WD protocols
essential HTN vs hypertensive from WD?--no longer tachy--would start hydralazine PRN DBP>100
Hypomagnesemia/hypokalemia --from ETOH use--replete
DVT proph
code status -- FULL CODE
Original Note:
Today's Communication/Plan
-
.
Assessment / Plan
Assessment / Plan
1. Alcoholic Ketoacidosis
- ED: Anion Gap Metabolic Acidosis on CMP on admission. Anion GAP of 25.
- AGAP closed; 5 this morning.
- PT mildly elevated; PTT/INR normal.
- CMP Electrolyte Abnormalities, see below.
- IVF: Switched to NS today.
- Thiamine, Folate supplementation.
- Continue to Monitor CMP.
2. Hypokalemia
- 2.8 this morning.
- Repleted with 80 mEQ today.
- Repeat after 40 mEQ, K 3.3.
- Repeat CMP in AM.
3. Hypophosphatemia
- Replete today, phophate level in AM.
4. Alcohol Withdrawal Syndrome
- Approxiamtely 48 hours since last drink
- No tremors currently, however patient restless and knows the prodrome of past events
- Serial MSAS.
- Highest MSAS 4 last night. Continues to trend down. Currently MSAS = 1.
- Continue Phenobarbital Taper
- Case Management for [facility] Consult; patient interested in IOP
- Transfer to telemetry today.
3. Tachycardia
- Likely secondary to dehydration; see IVF above.
- EKG in ED; NSR.
- Patient normal HR, normotensive when examined this morning.
4. Hypomagnesemia
- 1.5 at admission; given 2g in ED
- 2.2 this AM.
- Continue to monitor.
Anticipated Discharge: 24 - 48 hours
Subjective/Interval History
-
Date of Service: July 08, 2024
Patient seen and examined while resting comfortably in bed. Patient notes that he feels a little bit groggy this morning, but states that he has felt similar to when he has received phenobarbital taper in the past. Patient states that he slept well
overnight, ate his breakfast without issue. Patient required only 1 dose of Ativan last night. Endorses a level of mild anxiety that is 'normal' for him. Patient specifically denies dizziness, confusion, headache, chest pain, SOB, abdominal pain,
nausea, vomiting, diarrhea, hallucinations, tremors, or thoughts of harming self.
Objective Data
-
Labs:
Laboratory Results
07/08/24 07/08/24
04:13 13:55
WBC 5.9
Hgb 13.8
Hct 38.4 L
Plt Count 152 D
Sodium 132 L
Potassium 2.8 L D 3.3 L
Chloride 88 L
Carbon Dioxide 39 H
BUN 10
Creatinine 0.7
Glucose 141 H
Calcium 8.1 L
Total Bilirubin 1.3
AST 49
ALT 41
Alkaline Phosphatase 81
Vital Signs:
Vital Signs
Temp Pulse Resp BP Pulse Ox
98.6 F 83 12 137/103 94
07/08/24 15:30 07/08/24 12:46 07/08/24 12:30 07/08/24 12:00 07/08/24 12:30
I&O
07/07/24 07/08/24 07/09/24
06:59 06:59 06:59
Intake Total 2340 / 2340 270 / 270
Output Total 1200 / 1200 1950 / 1950
Balance 1140 / 1140 -1680 / -1680
Review of Systems
-
History Source: Patient
All other systems: Reviewed and negative
Physical Exam
-
General: Well Developed, Well Nourished and No Apparent Distress
HEENT: Normocephalic, Atraumatic and Moist Mucous Membranes
Respiratory: Clear to Auscultation
Cardiac: Regular Rhythm and S1/S2
GI: Soft, Nontender, Nondistended and Normal Bowel Sounds
Musculoskeletal: No Clubbing, No Cyanosis and No Edema
Skin: Warm and Dry
Neuro: Awake, Alert and Other (no tremor, no asterixis; restless lower extremities while conversing; appear improved from yesterday )
Psych: Calm
Data Reviewed
-
Labs: Labs Reviewed by me
--- NOTE | 2024-07-08 16:50 | PTCARENOTE ---
Received pt. from IMU. Pt. LFA IV infiltrated, IV removed and IV team RN made aware. Pt. stable at this time, resting in bed, call lora within reach.
[2024-07-08] MEDS: LOVENOX 40 MG SC (17:28)
[2024-07-08] MEDS: NEUTRA-PHOS POWDER PACKET 250 MG PO ×2 (18:12→21:07)
[2024-07-09 03:28] VITALS: BP 123/81
[2024-07-09 07:55] LABS: Hematocrit 41.9 % (39.0-52.0); Mean Corp Hgb Conc. 35.8 g/dL (33.0-37.0); Mean Corpuscular Hgb 32.9 pg (27.0-31.0); Mean Corpuscular Volume 91.9 fL (80.0-94.0); Mean Platelet Volume 10.4 fL (7.4-10.4); Platelet Count 150 10^3/uL (130-400); Red Blood Cell Count 4.56 10^6/uL (4.70-6.10); Red Cell Dist. Width 11.7 % (11.5-14.5); White Blood Cell Count 4.8 10^3/uL (4.8-10.8)
[2024-07-09 08:27] LABS: ALT (SGPT) 42 U/L (0-50); AST (SGOT) 55 U/L (17-59); Alkaline Phosphatase 79 U/L (38-126); Blood Urea Nitrogen 4 mg/dl (9-20); Calcium 8.6 mg/dl (8.4-10.2); Carbon Dioxide 24 mmol/L (22-30); Chloride 100 mmol/L (98-107); Estimated Creatinine Clearance > 125 ml/min; Glucose 96 mg/dl (70-99); Magnesium 1.9 mg/dl (1.6-2.3); Phosphorus 2.6 mg/dl (2.5-4.5); Potassium 3.6 mmol/L (3.5-5.1); Sodium 133 mmol/L (135-145); Total Bilirubin 1.5 mg/dl (0.2-1.3); Total Protein 6.8 g/dl (6.3-8.2); eGFR > 60.00
[2024-07-09 08:43] VITALS: BP 126/96
[2024-07-09] MEDS: VITAMIN C 500 MG PO (08:46)
[2024-07-09] MEDS: NEUTRA-PHOS POWDER PACKET 250 MG PO ×2 (08:46→14:15)
[2024-07-09] MEDS: FOLVITE 1 MG PO (08:46)
[2024-07-09] MEDS: THIAMINE INJECTION 200 MG IV (08:47)
[2024-07-09] MEDS: NSS 1000 IV (08:49)
[2024-07-09] MEDS: PHENOBARBITAL 97.5 MG IV ×2 (09:01→16:16)
--- NOTE | 2024-07-09 10:34 | W.PN.HOSP.TC ---
Addendum entered and electronically signed by Janna Scott MD 07/09/24 18:17:
I saw and evaluated the patient independently. I reviewed the resident�s note and agree with findings and plan as documented by Dr. Sebastian.
GENERAL: well developed, well nourished, male in no apparent distress
HEENT: NC/AT
HEART: regular rate and rhythm, +S1, +S2-
LUNGS : clear to auscultation bilaterally
ABDOM: soft, nontender, nondistended, + bowel sounds
EXT: no cyanosis, clubbing, or edema
NEUROLOGIC: grossly intact--no tremors
Alcoholic Ketoacidosis --AGAP closed--Thiamine, Folate
Alcohol Withdrawal Syndrome with impending DTs--pt tachycardic and hypertensive--last drink was at noon on 07/06/25 (1/2 pt of vodka daily)--finish phenobarb taper--Case Management for [facility] Consult --pt would benefit from inpt alcohol treatment
but did not agree
Tachycardia --combination of dehydration from vomiting and early DTs--cont IVF and WD protocols
essential HTN vs hypertensive from WD?--no longer tachy-- hydralazine PRN DBP>100
Hypomagnesemia/hypokalemia --from ETOH use--replete
DVT proph
code status -- FULL CODE
ok for d/c
Original Note:
Today's Communication/Plan
-
Discharge to Home.
Assessment / Plan
Assessment / Plan
1. Alcoholic Ketoacidosis (resolved)
- ED: Anion Gap Metabolic Acidosis on CMP on admission. Anion GAP of 25.
- AGAP closed; 9 this morning.
- CMP Electrolyte Abnormalities, mostly improved, see below.
- IVF
- Thiamine, Folate supplementation. Continue on an outpatient basis.
2. Hypokalemia (resolved)
- 2.8 this yesterday.
- Repleted with 80 mEQ yesterday.
- Repeat after 40 mEQ, K 3.3.
- Repeat after 87 mEQ, K 3.6 this morning.
- Oral K Chlor 1 dose today prior to d/c.
3. Hypophosphatemia (resolved)
- 2.6 today s/p repletion.
4. Alcohol Withdrawal Syndrome
- Approxiamtely 72+ hours since last drink
- No tremors currently. Neurological Exam benign. Patient less anxious.
- Serial MSAS.
- Highest MSAS 4 night of admission. MSAS at 0-1 for > 24 hours.
- Continue Phenobarbital Taper.
- Finished 6 doses of 97.5.
- Rx 2 days of 64.8 mg po tid and 2 days of 32.4mg PO TID upon d/c
- Case Management for [facility] Consult; patient interested in IOP.
- Discharge to home today.
3. Tachycardia (resolved)
- Likely secondary to dehydration; see IVF above.
- EKG in ED; NSR.
- Patient normal HR, normotensive when examined this morning.
4. Hypomagnesemia (resolved)
- 1.5 at admission; given 2g in ED
- 2.2 this AM.
- Continue to monitor.
Anticipated Discharge: Today
Subjective/Interval History
-
Date of Service: July 09, 2024
Patient seen and examined while resting comfortably in bed. Patient feels subjectively better today than yesterday, notes less anxiety and no tremors. Patient specifically denies headaches, dizziness, CP, SOB, abdominal pain, nausea, vomiting,
diarrhea, tremors, confusion, hallucinations, or thoughts of harming self. Patient does note some acid reflux.
Objective Data
-
Labs:
Laboratory Results
07/09/24
07:26
WBC 4.8
Hgb 15.0
Hct 41.9
Plt Count 150
Sodium 133 L
Potassium 3.6
Chloride 100
Carbon Dioxide 24
BUN 4 L
Creatinine 0.7
Glucose 96
Calcium 8.6
Total Bilirubin 1.5 H
AST 55
ALT 42
Alkaline Phosphatase 79
Vital Signs:
Vital Signs
Temp Pulse Resp BP Pulse Ox
98 F 78 18 126/96 97
07/09/24 08:43 07/09/24 08:43 07/09/24 08:43 07/09/24 08:43 07/09/24 08:43
I&O
07/08/24 07/09/24 07/10/24
06:59 06:59 06:59
Intake Total 2340 / 2340 4200 / 4200
Output Total 1200 / 1200 4750 / 4750 500 / 500
Balance 1140 / 1140 -550 / -550 -500 / -500
Review of Systems
-
History Source: Patient
Constitutional: Reports No Symptoms
EENT: Reports No Symptoms Reported
Respiratory: Reports No Symptoms
Cardiac: Reports No Symptoms
Abdomen/GI: Reports No Symptoms
Neuro: Reports No Symptoms
Physical Exam
-
General: Well Developed, No Apparent Distress and Conversant
HEENT: Normocephalic and Atraumatic
Respiratory: Clear to Auscultation
Cardiac: Regular Rhythm and S1/S2
GI: Soft, Nontender and Normal Bowel Sounds
Musculoskeletal: No Clubbing, No Cyanosis and No Edema
Skin: Warm and Dry
Neuro: Awake, Alert, Oriented, No Motor Deficits and Other (no tremors on examination)
Psych: Calm
Data Reviewed
-
Labs: Labs Reviewed by me and Discussed with Patient
[2024-07-09] MEDS: PROTONIX 40 MG PO (11:08)
[2024-07-09] MEDS: KCL 40 MEQ PO (11:08)
[2024-07-09 11:49] VITALS: BP 117/91
--- NOTE | 2024-07-09 14:58 | CM ---
Patient seen at bedside with physician. Patient plan is for discharge home with follow up with [facility]. Patient stated that he lives with his mother and father. Patient given information about residency clinic and his pharmacy is [phone] . Patient
plan is for a taper of his medications follow his 4pm dose. Patient to have family transport him home. CM will continue to follow for discharge planning needs.
Plan; home with [facility] follow up
[2024-07-09 16:03] VITALS: BP 148/96
--- NOTE | 2024-07-09 18:13 | W.DCSUMMARY ---
Discharge Summary
Discharge Data
Date of Admission: 07/07/24
Date of Discharge: 07/09/24
-
Pending Results: No
Hospital Course
Walt Hermosillo is a 38-year-old male with past medical history of alcohol abuse, GERD, HTN, and multiple ED visits/hospitalizations for alcohol withdrawal who presented to the emergency department at [facility] on 07/07/2024 due to
intractable vomiting, nausea, loss of appetite, and restlessness since approximately 18 hours prior to presentation. The patient stated that his last drink was approximately 24 hours prior to presentation. The patient also noted that he was last
admitted to [facility] for alcohol withdrawal approximately 1 month ago and discharged on a phenobarbital taper. After that discharge, he remained sober for around 21 days, and then relapsed about 9 days prior to presentation. Over that
9-day span he endorsed drinking half a pint of vodka per day and then abruptly stopping 24 hours prior to presentation.
In the emergency department, Walt appeared uncomfortable, tremulous, and disheveled. His mucous membranes were dry, and he exhibited some mild epigastric tenderness. He was anxious but cooperative and conversant. His total CIWA score was 13
and exhibited an MSAs score of approximately 5-7. He was given 1 mg IV of lorazepam and reassessed in 2 hours. At that time, he was still tachycardic, jittery, and nauseous. In addition, laboratory studies exhibited a high anion gap metabolic
acidosis, hypomagnesemia, and a mild transaminitis. EKG was performed due to the patient's tachycardia, however it was normal sinus rhythm with nonspecific ST changes. The decision was made to admit the patient for treatment of his dehydration,
alcoholic ketoacidosis, and impending alcohol withdrawal syndrome.
The patient's fluids were initially started as dextrose 5% in water, and then transition to normal saline. In addition he was given thiamine and folate supplementation. The patient was additionally started on phenobarbital taper. His highest MSAS
score was 4 on the night of his admission but then continue to trend down. The patient exhibited MSAS scores of 0-1 over the final 24 hours of the admission. His hypomagnesemia was corrected with IV magnesium, hypokalemia was corrected with
approximately 87 mEq of potassium, and hypophosphatemia was repleted as well.
As the patient continue to improve over a 72-hour period, the decision was made to discharge the patient after completion of 6 doses of 97.5 mg phenobarbital 3 times daily. The patient will continue his phenobarbital taper at home. In addition,
the patient can continue his usual home regimen of folate and thiamine supplementation. The patient plans to follow-up and be carriers on an outpatient basis for intensive outpatient treatment. Although he does not have a primary care provider,
the patient was given the names and numbers of the physicians at the [facility].
The patient was discharged to home on 07/09/2024.
Discharge Plan
-
Patient Disposition: Home (Routine Discharge)
Discharge Diagnosis/Procedures: Alcoholic Ketoacidosis
Alcohol Withdrawal Syndrome
Hypomagnesemia
Hypokalemia
Hypophosphatemia
Condition: Fair
Diet: As tolerated and Regular
Activity: As tolerated
Referrals:
UNKNOWN - PT DOES,NOT KNOW [Family Provider] -
Prescriptions:
New
phenobarbital 64.8 mg tablet
64.8 mg PO TID 2 Days Qty: 6 0RF
phenobarbital 32.4 mg tablet
32.4 mg PO TID 2 Days Qty: 6 0RF
Continued
multivitamin with folic acid [Tab-A-Bernie] 1 TABLET tablet
1 tab PO DAILY
ascorbic acid (vitamin C) [Vitamin C] 500 mg Tablet
500 mg PO DAILY
magnesium oxide 400 mg magnesium Tablet
400 mg PO Q48H
pantoprazole [Protonix] 40 mg tablet,delayed release (DR/EC)
40 mg PO DAILY Qty: 30 0RF
folic acid 1 mg Tablet
1 mg PO DAILY Qty: 30 0RF
thiamine HCl (vitamin B1) 100 mg Tablet
100 mg PO BID Qty: 60 0RF
Discharge Orders:
Discharge Patient (As Directed); Ordered 07/09/24
Ordered By: Toni Sebastian
Discharge Date and Time
Print Language: [place]
[2024-07-09] MEDS: LOVENOX SC (18:20)
[2024-07-09] MEDS: NEUTRA-PHOS POWDER PACKET PO (18:21)
== END 2024-07-09 19:17 | disposition home or self-care (01) | DRG 897 ==
LOC: 4 EAST ACU 17:21
PROVIDERS: Emergency Medicine; ADMITTING PHYSICIAN Internal Medicine; EMERGENCY PHYSICIAN Emergency Medicine
DX: F10.239 Alcohol dependence with withdrawal, unspecified (principal); E87.29 Other acidosis; F17.210 Nicotine dependence, cigarettes, uncomplicated; E83.42 Hypomagnesemia; I10 Essential (primary) hypertension; E87.6 Hypokalemia; E83.39 Other disorders of phosphorus metabolism
CPT/HCPCS: 80053; 80306; 80307; 81003; 81015; 82010; 82077; 82607; 82962; 82977; 83690; 83735; 84100; 84132; 85025; 85027; 85610; 85730; 93005; 96361; 96365; 96366; 96375; 96376; 99291

== ENCOUNTER 2024-08-14 16:05 | Inpatient (IN) | payer OTHER, SELFPAY ==
[2024-08-14] VITALS (10 sets, daily range): BP systolic 121–167; BP diastolic 81–111; BMI 22.1; BMI 21.7
--- NOTE | 2024-08-14 12:06 | ED.GENMED ---
History of Present Illness
General
Chief Complaint: Alcohol Problem
Source: patient and records
Exam Limitations: none
Time Seen by Provider: 08/14/24 11:59
History of Present Illness
History of Present Illness:
38yoM with a history of alcohol abuse presenting for evaluation of alcohol withdrawal. Patient was recently admitted from 07/07/25-07/09/24 for alcohol withdrawal. He states he was sober up until 1 week ago when he started drinking again. He has been
drinking 1/2 pint of vodka daily. Last drink was about 36 hours ago. He reports feeling shaky, shortness of breath, chills, and a headache. He has been vomiting non-stop since yesterday morning. He noted 'a little' coffee ground emesis. No prior
history of alchohol withdrawal seizures.
Past History
Past History
ED Past Medical History: HTN and Other (Alcohol abuse, reflux)
ED Past Surgical History: None
Social History
Tobacco: Smoker
Alcohol: Chronic alcoholic
Drug: Marijuana
Personal: Single
Living: with family
Employment: Employed
Family History
Family History: Other (Noncontributory)
Phy Exam
General Physical Exam
General Presentation: mild distress
General Skin: warm and dry
General Habitus: normal
General Mental: alert and anxious
ENT Exam
ENT Exam: normocephalic
Cardiovascular Exam
Cardiovascular Exam: tachycardia
Pulmonary Exam
Pulmonary Exam: lungs clear, no respiratory distress, no rales, no crackles and no rhonchi
Neurological Exam
Neurological Exam: other (Tremulous )
[place] Coma Scale
Eye Opening: Spontaneous
Verbal Response: Oriented
Motor Response: Obeys Commands
GCS Total Score: 15
Skin Exam
Skin Exam: normal color and warm/dry
Psychiatric Exam
Psychiatric Exam: anxious
Scores
Withdrawal Assessment of Alcohol
Withdrawal Assessment Completed?: Not applicable
Course
Orders/Labs/Results
Orders:
Orders
08/14/24 12:05
Electrocardiogram (*1) Urgent
Reason for Study: Shortness of Breath
Cardiac Monitoring- Treatment ONCE
EKG- Treatment ONCE
0.9% Sodium Chloride 1000 ml [Nss] 1,000 ml IV BOLUS
Lorazepam [Ativan] 2 mg IV NOW STA
Ondansetron Injectable [Zofran] 4 mg IV NOW STA
Pantoprazole [Protonix IV] 40 mg IV NOW STA
08/14/24 12:34
Complete Blood Count/With Diff Urgent
08/14/24 13:26
Comprehensive Metabolic Panel Urgent
Lipase Urgent
Magnesium Urgent
Troponin I Urgent
08/14/24 14:53
0.9% Sodium Chloride 1000 ml [Nss] 1,000 ml IV BOLUS
Ondansetron Injectable [Zofran] 4 mg IV NOW STA
08/14/24 Dinner
Clear Liquid
At Your Request: Full Participation
08/14/24 15:10
COVID-19 Antigen Urgent
Source: Nasal Swab
Influenza A+B Rapid Molecular Urgent
PATRICIA Source: Nasal Swab
Specimen Description:
08/14/24 15:38
Admit/Transfer Patient As Directed
Co-Sign Provider:
Level of Care: Inpatient admission
Assign to:: Telemetry
Physician / Group: justin loera
Diagnosis: alcohol withdrawal/ alcohol abuse intractable nausea vomiting
Reason for Telemetry: Arrhythmia
Date to Stop Telemetry: 08/17/24
Time to Stop Telemetry: 11:00
Reason for Hospitalization: alcohol withdrawal/ alcohol abuse intractable nausea vomiting
Expected length of stay greater than two midnights?: Yes
ELOS- Estimated Length of Stay in days: 3
I certify the patient meets the requirements for IP care: Yes
08/14/24 15:41
PRN Pain Medication Management As Directed
May give lesser potent ordered pain med per pt: Yes
preference::
Protocol:: Medication orders for pain may be administered in a
manner that supports deferring to patient preference
when the pt is:
- Requesting an ordered lesser potent pain medication.
Least to most potent pain medications are defined
as: acetaminophen < NSAID < tramadol < opioids
(morphine, oxycodone, hydromorphone).
- Requesting a lesser dose of the same medication IF
ORDERED.
- Requesting a less intrusive route of administration
if both routes are prescribed by the provider (PO <
IV).
08/14/24 15:44
Code Status As Directed
Resuscitation Status: Full Code
08/14/24 18:08
0.9% Sodium Chloride 1000 ml [Nss] 1,000 ml IV 100 mls/hr
0.9% Sodium Chloride [Nss (Preservative Free)] See Protocol IV PRN PRN
Acetaminophen [Tylenol] 650 mg PO Q4HPRN PRN
Enoxaparin Sodium [Lovenox] 40 mg SC QPM
FOLic ACID [Folvite] 1 mg 0.9% Sodium Chloride 50 ml [Nss] 50 ml IV DAILYPRN
Lorazepam [Ativan] 1 mg IV Q1HPRN PRN
Lorazepam [Ativan] 1 mg PO Q2HPRN PRN
Lorazepam [Ativan] 2 mg IV Q1HPRN PRN
Ondansetron Injectable [Zofran] 4 mg IV Q6HPRN PRN
Thiamine Injection 200 mg IV Q8
08/14/24 18:08
Case Management Consult Once
Case Management Consult: Other
Comment: Substance abuse counseling
DIETARY CONSULT Routine
Reason for Consult: Nutrition support, possible refeeding guidelines
Activity As Directed
Activity Level: As Tolerated
MSAS SCORE As Directed
MSAS Score 0-4: Repeat MSAS every 2 hours until 0-4 for three consecutive assessments, then every 4 hours x 48
hours.
MSAS Score 5-7: For MILD withdrawl symptoms. Repeat MSAS and RASS every 2 hours
MSAS Score 8-11: For MODERATE withdrawal symptoms. Repeat MSAS and RASS every 1 hour. Consider ICU or IMU
level of care.
MSAS Score > 11: For SEVERE withdrawal symptoms. Repeat MSAS and RASS every 1 hour. Notify provider, consider
ICU level of care.
MSAS Additional Instructions: If no improvement or no decrease in score from severe to moderate within 12
hours, consult psychiatry
MSAS Notify Provider: Notify provider if patient requires more than 10 mg of Lorazepam in eight hour period.
Vital Signs As Directed
Frequency: Per unit guidelines
Pt Eval And Treat Routine
Activity Level: As Tolerated
DX Deep Vein Thrombosis Video Routine
08/14/24 22:25
Alcohol Urgent
B-Hydroxybutyrate Urgent
GGTP Urgent
Phosphorus Urgent
08/14/24 23:40
Urinalysis Reflex To Culture Routine
Date Specimen was Collected: 08/14/24
Time Specimen was Collected: 23:23
Urine Drug Abuse Screen Routine
Date Specimen was Collected: 08/14/24
Time Specimen was Collected: 23:24
08/15/24 06:29
Complete Blood Count/With Diff IN AM
Comprehensive Metabolic Panel IN AM
08/15/24 08:00
FOLic ACID [Folvite] 1 mg PO DAILY
08/16/24 06:00
Complete Blood Count/With Diff IN AM
Comprehensive Metabolic Panel IN AM
08/17/24 06:00
Complete Blood Count/With Diff IN AM
Comprehensive Metabolic Panel IN AM
08/17/24 11:00
DC Protocol for Telemetry ONCE
08/17/24 20:00
Thiamine HCl [Vitamin B1] 100 mg PO BID
Abnormal Lab Results
08/14/24 08/14/24
12:34 13:26
WBC 11.0 H 10^3/uL
(4.8-10.8)
MCH 32.0 H pg
(27.0-31.0)
Absolute Neuts (auto) 8.9 H 10^3/uL
(1.4-6.5)
Absolute Lymphs (auto) 1.0 L 10^3/uL
(1.2-3.4)
Absolute Monos (auto) 1.1 H 10^3/uL
(0.1-0.6)
Neutrophils % 80.9 H %
(42.2-75.2)
Lymphocytes % 8.9 L %
(20.5-51.1)
Monocytes % 9.7 H %
(1.7-9.3)
Chloride 95 L mmol/L
(98-107)
BUN 24 H mg/dl
(9-20)
ALT 54 H U/L
(0-50)
08/14/24 12:34
08/14/24 13:26
Vital Signs
Initial and Last Documented VS:
Initial Vital Signs
Temp Pulse Resp BP Pulse Ox
98.2 F 124 16 167/102 100
08/14/24 11:53 08/14/24 11:53 08/14/24 11:53 08/14/24 11:53 08/14/24 11:53
Last Documented Vital Signs
Temp Pulse Resp BP Pulse Ox
98.1 F 81 16 117/73 100
08/15/24 07:19 08/15/24 07:19 08/15/24 07:19 08/15/24 07:19 08/15/24 07:19
MDM/Problems Addressed
Differential Diagnosis Includes:
38yoM here for alcohol withdrawal. Last drink 36 hours ago. C/o vomiting, tremors, chills, headache. Patient tachycardic and tremulous. No signs of hallucinations. Differential diagnosis includes but is not limited to: alcohol withdrawal, anxiety,
dehydration, electrolyte abnormality
Initial ED plan: Check abdominal labs, magnesium, troponin, and EKG. IV Ativan, Zofran, Protonix, and fluid bolus for symptoms.
*EKG
Interpreted by ED Provider?: Yes
EKG Intrepretation Date: 08/14/24
Heart Rate: 103
Rate: tachycardiac
Rhythm: sinus
[place]: normal axis
Interval: normal interval
QRS Pattern: normal QRS
Ischemia: no ischemia
*Critical Care Note
Total Time (30-74mins, 75-104mins- exclusive of procedures): Not Applicable
Update Note
Update Note:
Labs overall unremarkable including normal renal function. Patient continues to be symptomatic and tachycardic after receiving 2mg IV Ativan. Will admit for further management.
ED Attending Note
-
Portions of this chart may have been created with voice recognition software.� Occasional wrong word or��sound alike� substitutions may have occurred due to the inherent limitations of voice recognition software.
Discharge Plan
Departure
Patient Disposition: Admit
Date of Disposition: 08/14/24
Time of Disposition: 14:53
Presentation/result/management discussed w/ accepting MD/DO: Hospitalist
Discharge Problem:
Alcohol withdrawal
Interventions
Interventions:
*Risk Screen - Suicide Last Done: 08/14/24 11:53
*General Assessment Last Done: 08/14/24 12:43
*Neglect/Abuse Screening Last Done: 08/14/24 11:53
ED- Fall Risk Assessment Last Done: 08/14/24 12:47
*ED COVID-19 Vaccine History Last Done: 08/14/24 12:43
*Nursing Disposition Last Done: 08/14/24 18:02
ED- Neurological Assessment Last Done: 08/14/24 12:43
ED-Psychological Assessment Last Done: 08/14/24 12:43
Discharge Date and Time
Discharge Date/Time: 08/14/24 18:03
[2024-08-14] MEDS: NSS 1000 IV ×3 (12:36→18:27)
[2024-08-14] MEDS: PROTONIX IV 40 MG IV (12:37)
[2024-08-14] MEDS: ZOFRAN 4 MG IV ×3 (12:37→22:07)
[2024-08-14] MEDS: ATIVAN 2 MG IV (12:37)
[2024-08-14 13:04] LABS: % Basophils 0.2 % (0-2); % Immature Granulocytes 0.3 % (0-0.5); % Lymphocytes 8.9 % (20.5-51.1); % Monocytes 9.7 % (1.7-9.3); % Neutrophils 80.9 % (42.2-75.2); Absolute Monocytes 1.1 10^3/uL (0.1-0.6); Absolute Neutrophils 8.9 10^3/uL (1.4-6.5); Hematocrit 47.3 % (39.0-52.0); Hemoglobin 16.6 g/dL (13.0-18.0); Mean Corp Hgb Conc. 35.1 g/dL (33.0-37.0); Mean Corpuscular Volume 91.3 fL (80.0-94.0); Mean Platelet Volume 9.8 fL (7.4-10.4); Nucleated Red Blood Cells % 0 % (-); Platelet Count 397 10^3/uL (130-400); Red Blood Cell Count 5.18 10^6/uL (4.70-6.10); Red Cell Dist. Width 12.8 % (11.5-14.5)
[2024-08-14 14:07] LABS: Troponin I < 0.012 ng/ml
[2024-08-14 14:08] LABS: ALT (SGPT) 54 U/L (0-50); AST (SGOT) 52 U/L (17-59); Albumin 4.9 g/dl (3.5-5.0); Alkaline Phosphatase 119 U/L (38-126); Blood Urea Nitrogen 24 mg/dl (9-20); Calcium 9.7 mg/dl (8.4-10.2); Carbon Dioxide 22 mmol/L (22-30); Chloride 95 mmol/L (98-107); Estimated Creatinine Clearance 95 ml/min; Glucose 98 mg/dl (70-99); Lipase 81 U/L (23-300); Magnesium 1.8 mg/dl (1.6-2.3); Potassium 3.6 mmol/L (3.5-5.1); Sodium 137 mmol/L (135-145); Total Bilirubin 1.3 mg/dl (0.2-1.3); Total Protein 8.1 g/dl (6.3-8.2); eGFR > 60.00
--- NOTE | 2024-08-14 15:10 | HPS.HSE ---
Family Physician
-
Family Physician: INTERVIEWE UNKNOWN - PT NOT
Chief Complaint
-
Vomiting, shaking, shortness breath, chills, headache last drink 24 hours ago, father sick with COVID 1 weeks ago mother and brother also sick with nausea like symptoms
History of Present Illness
38-year-old male states he was sober up until 1 week ago he then began drinking half a pint of vodka daily with his last drink approximately 48 hours he reports drinking Saturday 2 days ago last drink approximately 6 PM. He reports feeling shaky,
short of breath, chills bodyaches headache, intractable vomiting. He denies any history of alcohol withdrawal seizures. He does state that his mother has same symptoms of nausea his brother is also having some stomach discomfort and his father
had COVID 1 week ago they all live in the same house. Patient states he was sober from July 09 until approximately August 08 and then he started drinking half a plate of vodka a day again he is been unemployed for approximately 1 year. He
smokes marijuana joint daily. He states he is linked up with [facility] but has not decided what type of treatment he wants. He denies fever, sore throat, headache, chest pain, palpitations, shortness of, cough, constipation, diarrhea,
urinary symptoms.
The patient was admitted 07/07 - 07/09/2023 secondary to intractable vomiting, nausea, loss of appetite, restlessness secondary to alcohol withdrawal. He presented at that time tachycardic sinus rhythm with nonspecific ST changes he required MSAs
screen with protocol IV thiamine and folate supplementation in addition a phenobarbital taper and correction of his magnesium potassium and phosphate. His plan was intensive outpatient treatment
He has past medical history of alcohol abuse, marijuana use, active smoker, hypertension, GERD
Medical History
Past Medical History
Past Medical History: Reports Other
Additional Past Medical History:
Alcohol Use Disorder,
GERD
Daily marijuana use
Past Surgical History: Reports Other
Additional Past Surgical History:
Dental Surgery
Social History
Tobacco: Other (Admits to Smoking 2 PPD while at [facility] Over the Past Year )
Alcohol: Chronic Alcoholic (Half a bottle of vodka daily stopped 1 week to 07/27/2024)
Drug: Marijuana (Smokes joint daily)
Personal: Single
Living: With Family
Employment: Not Employed (X 1 year)
Family History
Family History: Other (Mother drinks wine daily, paternal grandfather alcohol abuse, 2 brothers healthy)
Allergies / Home Medications
Allergies reflects when Allergies were last updated in [facility] [employer].
Home Medications with original date entered in [employer]
Allergy/Medication List:
Allergies
Allergy/AdvReac Type Severity Reaction Status Date / Time
Sulfa (Sulfonamide Allergy Rash Verified 08/14/24 11:53
Antibiotics)
Home Medications
multivitamin with folic acid 400 mcg tablet (Tab-A-Bernie) 1 tab PO DAILY Supplement 10/03/21
ascorbic acid (vitamin C) 500 mg tablet (Vitamin C) 500 mg PO DAILY Supplement 02/11/24
magnesium oxide 400 mg PO Q48H Supplement 02/11/24
pantoprazole 40 mg tablet,delayed release (Protonix) 40 mg PO DAILY Gastrointestinal Issue #30 tabs 03/08/24
folic acid 1 mg tablet 1 mg PO DAILY #30 tabs 06/07/24
thiamine HCl (vitamin B1) 100 mg tablet 100 mg PO BID #60 tabs 06/07/24
Review of Systems
-
History Source: Patient
A 12 point ROS was completed and negative except as noted: Yes
Constitutional: Denies Fever, Fatigue or Chills
EENT: Denies Sore Throat or Runny Nose
Respiratory: Denies Cough or Trouble Breathing
Cardiac: Denies Chest Pain, Diaphoresis, Palpitations or Syncope
Abdomen/GI: Reports Nausea and Vomiting; Denies Abdominal Pain, Diarrhea, Constipated, Bloody Stools or Black Stools
: Denies Dysuria, Frequency, Flank Pain, Incontinence, Difficulty Voiding, Urgency or Dark Urine
Musculoskeletal: Denies Joint Pain or Edema
Skin: Denies Itching or Rash
Neurological: Denies Dizzy, Headache or Weakness
Endocrine: Reports No Symptoms
Hematologic/Lymphatic: Reports No Symptoms
Psych: Reports Calm
Physical Exam
Vital Signs
Vital Signs
Temp Pulse Resp BP Pulse Ox
98.2 F 112 10 138/98 98
08/14/24 11:53 08/14/24 13:30 08/14/24 13:30 08/14/24 13:00 08/14/24 13:30
Physical Exam
General: Conversant; No Pain, Fever or Chills
HEENT: NormoCephalic, Anicteric, Moist mucous membranes, PERRLA, [place] Conjunctivae and No Ptosis
Respiratory: Clear; No Wheezes, Rales or Rhonchi
Cardiac: S1/S2 and Regular Rhythm; No Murmur, Rub, Gallop or Peripheral Edema
Breast: Deferred by me
GI: Soft, Non Tender, Non Distended, Normal Bowel Sounds and No Hepatosplenomegaly
Rectal: Deferred by Provider
Genito-urinary: Deferred by me
Musculoskeletal: No Clubbing, No Cyanosis and No Edema
Skin: Warm and Dry; No Rash or Jaundice
Neuro: AO x 3, No Motor Deficits, Nonfocal/grossly intact, Cranial Nerves Intact and No Sensory Deficits; No Slurred Speech, Facial Droop, Tremors or Sedated
Psych: Calm
Laboratory Results
-
08/14/24 12:34
08/14/24 13:26
Laboratory Results
Total Bilirubin 1.3 mg/dl (0.2-1.3) 08/14/24 13:26
AST 52 U/L (17-59) 08/14/24 13:26
ALT 54 U/L (0-50) H 08/14/24 13:26
Alkaline Phosphatase 119 U/L (38-126) 08/14/24 13:26
Troponin I < 0.012 ng/ml 08/14/24 13:26
Lipase 81 U/L (23-300) 08/14/24 13:26
Impression/Plan
-
Impression/plan:
Admit to telemetry
#Acute alcohol withdrawal/alcohol abuse
#HX Alcoholic Ketoacidosis recent July 2023 admission-resolved
Symptoms with shaking, intractable vomiting headache, chills, bodyaches
Last drink 24 hours ago Saturday evening 08/12/2024 6 PM of a bottle of vodka
-MSAs screen with protocol
-Check flu, COVID(patient's father with COVID 1/2 weeks ago brother mother currently sick with abdominal pain/nausea)
-Patient on folic acid 1 mg p.o. daily, thiamine 100 mg p.o. twice daily
-2 L NSS given in ER, IV Zofran total 8 mg, IV Protonix 40 mg and 2 mg Ativan
-Monitor QTc
- Covid
#Tachycardia secondary to alcohol withdrawal
EKG: Sinus tach 103 bpm, QTc 432 MS otherwise normal compared to July 07, 2024
#Acute leukocytosis could be reactive from vomiting, alcohol withdrawal
WBC 11 with left shift, HR 112, 98.2F, 138/90
Will check [employer] INTERNATIONAL STUDENT ADVISOR, CXR
#GERD
-Continue Protonix 40 mg daily
#Hypomagnesemia from alcohol abuse
Mag 1.8, continue Mag-Ox 400 mg p.o. every 48 H
DVT proph
Subcu Lovenox
code status -- FULL CODE
[2024-08-14 15:40] LABS: COVID-19 Antigen Negative (Negative)
--- NOTE | 2024-08-14 15:49 | W.PN.UPDATE ---
Update Note
Progress Note Update
This is an addendum to the H&P written by Katharine Mg on 08/14/2024. Patient seen and examined independently with CHEMICAL ETCHING PROCESSOR.
38-year-old male past medical history of alcohol use disorder, alcoholic hepatitis, recurrent alcoholic pancreatitis, GERD, diverticulosis presenting with symptoms of alcohol withdrawal including nausea and vomiting, abdominal cramping and tremors
for the past 2 days as well as body aches, cough and chills and sinus symptoms for the past 5 days. His father tested positive for COVID in the past week.
Presentation consistent with alcohol withdrawal as well as likely URI. COVID is negative. Flu pending. IV fluids, thiamine and folate, alcohol withdrawal protocol.
[2024-08-14] MEDS: LOVENOX 40 MG SC (18:27)
[2024-08-14] MEDS: THIAMINE INJECTION 200 MG IV (22:07)
[2024-08-14] MEDS: THIAMINE INJECTION IV (22:42)
[2024-08-14 22:51] LABS: APTT 30.6 Sec (23.4-35.0)
[2024-08-14 22:52] LABS: INR 1.11; PT 14.6 Sec (11.4-14.6)
[2024-08-14 23:18] LABS: GGTP 122 U/L (15-73); Phosphorus 1.9 mg/dl (2.5-4.5)
[2024-08-14 23:22] LABS: Alcohol None Detected
[2024-08-14 23:24] LABS: B-Hydroxybutyrate 1.09 mmol/L (0.02-0.27)
[2024-08-14] MEDS: ATIVAN 1 MG PO (23:38)
[2024-08-14] MEDS: PHENOBARBITAL 97.5 MG IV (23:38)
[2024-08-15] VITALS (7 sets, daily range): BP systolic 117–144; BP diastolic 73–108; PULSE 88; O2SAT 98
[2024-08-15 00:22] LABS: Amphetamines Negative (Negative); Barbiturates Positive (Negative); Benzodiazepines Positive (Negative); Buprenorphine Negative (Negative); Cocaine Negative (Negative); Methadone Negative (Negative); Methamphetamines Negative (Negative); Opiates Negative (Negative); Phencyclidine Negative (Negative)
[2024-08-15 00:23] LABS: Marijuana Positive (Negative); Tricyclic Antidepressants Negative (Negative)
[2024-08-15 00:27] LABS: Urine Albumin 1+ (Neg - Trace); Urine Bilirubin Negative (Negative); Urine Character Clear (Clear); Urine Color Amber; Urine Glucose Negative (Negative); Urine Ketone 3+ (Negative); Urine Leukocyte Negative (Negative); Urine Nitrite Negative (Negative); Urine Occult Blood Negative (Negative); Urine Specific Gravity 1.015 (<1.030); Urine Urobilinogen 2+ (Neg - 1+)
[2024-08-15 00:37] LABS: Fentanyl, Urine Negative (Negative)
[2024-08-15 00:40] LABS: Urine Amorphous Seen; Urine Mucus Moderate; Urine Squamous Cell >30 /LPF (Few); Urine White Cell 16-20 /HPF (0-5)
[2024-08-15 00:41] LABS: Urine Bacteria Moderate (Negative)
[2024-08-15 00:42] LABS: Urine Granular Cast 0-2 /LPF (0)
[2024-08-15 00:43] LABS: Urine Hyaline Cast 0-2 /LPF (0-2); Urine White Cell Cast 0-2 /LPF
[2024-08-15] MEDS: NSS 1000 IV (04:02)
[2024-08-15 07:24] LABS: ALT (SGPT) 36 U/L (0-50); AST (SGOT) 42 U/L (17-59); Albumin 3.4 g/dl (3.5-5.0); Alkaline Phosphatase 96 U/L (38-126); Blood Urea Nitrogen 12 mg/dl (9-20); Calcium 8.3 mg/dl (8.4-10.2); Carbon Dioxide 27 mmol/L (22-30); Chloride 102 mmol/L (98-107); Estimated Creatinine Clearance 117 ml/min; Glucose 90 mg/dl (70-99); Potassium 3.4 mmol/L (3.5-5.1); Sodium 134 mmol/L (135-145); Total Bilirubin 1.6 mg/dl (0.2-1.3); Total Protein 6.1 g/dl (6.3-8.2); eGFR > 60.00
[2024-08-15] MEDS: FOLVITE 1 MG PO (07:26)
[2024-08-15] MEDS: THIAMINE INJECTION 200 MG IV ×2 (07:26→15:44)
[2024-08-15] MEDS: PHENOBARBITAL 97.5 MG IV ×3 (07:27→21:22)
[2024-08-15 08:25] LABS: % Basophils 0.4 % (0-2); % Eosinophils 0.3 % (0-6); % Immature Granulocytes 0.4 % (0-0.5); % Lymphocytes 23.3 % (20.5-51.1); % Monocytes 11.4 % (1.7-9.3); % Neutrophils 64.2 % (42.2-75.2); Absolute Lymphocytes 1.6 10^3/uL (1.2-3.4); Absolute Monocytes 0.8 10^3/uL (0.1-0.6); Absolute Neutrophils 4.3 10^3/uL (1.4-6.5); Hematocrit 40.6 % (39.0-52.0); Hemoglobin 14.1 g/dL (13.0-18.0); Mean Corp Hgb Conc. 34.7 g/dL (33.0-37.0); Mean Corpuscular Hgb 32.2 pg (27.0-31.0); Mean Corpuscular Volume 92.7 fL (80.0-94.0); Mean Platelet Volume 9.4 fL (7.4-10.4); Nucleated Red Blood Cells % 0 % (-); Platelet Count 260 10^3/uL (130-400); Red Blood Cell Count 4.38 10^6/uL (4.70-6.10); Red Cell Dist. Width 12.6 % (11.5-14.5); White Blood Cell Count 6.7 10^3/uL (4.8-10.8)
[2024-08-15 09:28] LABS: Magnesium 1.9 mg/dl (1.6-2.3)
--- NOTE | 2024-08-15 09:58 | W.PN.HOSP.TC ---
Today's Communication/Plan
-
see PN
Assessment / Plan
Assessment / Plan
38yo M with PMHX of alcohol abuse came after he relapsed for alcohol withdrwal management
A/P:
#Alcohol abuse with withdrawal
Thiamine/Folate
MSAS with ativan
Phenobarb taper
CM for rehab materials
Alcohol cessation counseling provided
#Hypokalemia
2/2
#Abdominal pain
Lipase WNL
most likely alcoholic gastritis
PPI
#Elevated bilirubin
2/2 Alcoholic liver disease and steatohepatosis
follow LFT
DVT ppx lovenox
Full code
I have spent at least 38min reviewing chart, test results, direct patient care
Anticipated Discharge: 24 - 48 hours
Subjective/Interval History
-
Date of Service: August 15, 2024
Objective Data
-
Labs:
Laboratory Results
08/14/24 08/15/24
22:29 06:29
WBC 6.7
Hgb 14.1
Hct 40.6
Plt Count 260 D
PT 14.6
INR 1.11
APTT 30.6
Sodium 134 L
Potassium 3.4 L
Chloride 102
Carbon Dioxide 27
BUN 12
Creatinine 0.8
Glucose 90
Calcium 8.3 L
Total Bilirubin 1.6 H
AST 42
ALT 36
Alkaline Phosphatase 96
Vital Signs:
Vital Signs
Temp Pulse Resp BP Pulse Ox
98.1 F 81 16 117/73 100
08/15/24 07:19 08/15/24 07:19 08/15/24 07:19 08/15/24 07:19 08/15/24 07:19
I&O
08/14/24 08/15/2408/16/25
06:59 06:59 06:59
Intake Total 2160 / 2160
Output Total 900 / 900
Balance 1260 / 1260
Review of Systems
-
History Source: Patient
All other systems: Reviewed and negative
Physical Exam
-
General: No Apparent Distress
HEENT: Normocephalic
Respiratory: Clear to Auscultation
Cardiac: Regular Rhythm
GI: Soft, Nontender and Nondistended
Neuro: Awake, Alert, Oriented and AO x 3; Negative Tremors
Psych: Calm
[2024-08-15] MEDS: KCL 40 MEQ PO (10:10)
[2024-08-15] MEDS: LOVENOX 40 MG SC (17:15)
[2024-08-15] MEDS: ZOFRAN 4 MG IV (18:35)
[2024-08-15] MEDS: ATIVAN 1 MG PO (21:22)
[2024-08-15] MEDS: PROTONIX 40 MG PO (21:24)
[2024-08-16] MEDS: THIAMINE INJECTION 200 MG IV ×2 (00:17→08:39)
[2024-08-16 03:00] VITALS: BP 128/89
[2024-08-16 07:00] VITALS: BP 124/81
[2024-08-16 07:37] LABS: % Basophils 0.9 % (0-2); % Immature Granulocytes 0.3 % (0-0.5); % Lymphocytes 32.6 % (20.5-51.1); % Monocytes 12.1 % (1.7-9.3); % Neutrophils 53.1 % (42.2-75.2); Absolute Basophils 0.1 10^3/uL (0-0.2); Absolute Eosinophils 0.1 10^3/uL (0-0.7); Absolute Lymphocytes 1.9 10^3/uL (1.2-3.4); Absolute Monocytes 0.7 10^3/uL (0.1-0.6); Absolute Neutrophils 3.1 10^3/uL (1.4-6.5); Hemoglobin 14.5 g/dL (13.0-18.0); Mean Corp Hgb Conc. 35.4 g/dL (33.0-37.0); Mean Corpuscular Hgb 32.3 pg (27.0-31.0); Mean Corpuscular Volume 91.3 fL (80.0-94.0); Nucleated Red Blood Cells % 0 % (-); Platelet Count 240 10^3/uL (130-400); Red Blood Cell Count 4.49 10^6/uL (4.70-6.10); Red Cell Dist. Width 12.1 % (11.5-14.5); White Blood Cell Count 5.8 10^3/uL (4.8-10.8)
[2024-08-16 07:59] LABS: ALT (SGPT) 41 U/L (0-50); AST (SGOT) 48 U/L (17-59); Alkaline Phosphatase 85 U/L (38-126); Blood Urea Nitrogen 5 mg/dl (9-20); Calcium 9.1 mg/dl (8.4-10.2); Carbon Dioxide 24 mmol/L (22-30); Chloride 100 mmol/L (98-107); Estimated Creatinine Clearance > 125 ml/min; Glucose 91 mg/dl (70-99); Potassium 3.8 mmol/L (3.5-5.1); Sodium 132 mmol/L (135-145); Total Bilirubin 2.1 mg/dl (0.2-1.3); Total Protein 6.7 g/dl (6.3-8.2); eGFR > 60.00
[2024-08-16] MEDS: LUMINAL 64.8 MG PO ×2 (08:39→15:42)
[2024-08-16] MEDS: PROTONIX 40 MG PO (08:39)
[2024-08-16] MEDS: FOLVITE 1 MG PO (08:39)
--- NOTE | 2024-08-16 09:38 | W.PN.HOSP.TC ---
Today's Communication/Plan
-
D/C after last dose of phenobarb 68.4mg
Assessment / Plan
Assessment / Plan
38yo M with PMHX of alcohol abuse came after he relapsed for alcohol withdrawal management and abdominal pain on admission that rapidly resolved. Most liekly patient with alcoholic gastritis. Strict alcohol cessation advised. Patient already has
substane abuse Case mgmt in '[employer] No significant signs of withdrawal, reasonable for rapid phenobarb taper to d/c with 3 more doses of low dose Phenobarb after completion of second day tapered dose in hospital. Patient tolerated food well
A/P:
#Alcohol abuse with withdrawal
Thiamine/Folate
MSAS with ativan
Phenobarb taper
CM for rehab materials
Alcohol cessation counseling provided
#Hypokalemia
2/2
#Abdominal pain
Lipase WNL
most likely alcoholic gastritis
PPI
#Elevated bilirubin
2/2 Alcoholic liver disease and steatohepatosis
follow LFT
DVT ppx lovenox
Full code
I have spent at least 38min reviewing chart, test results, direct patient care
Anticipated Discharge: Today
Subjective/Interval History
-
Date of Service: August 16, 2024
Objective Data
-
Labs:
Laboratory Results
08/16/24
07:05
WBC 5.8
Hgb 14.5
Hct 41.0
Plt Count 240
Sodium 132 L
Potassium 3.8
Chloride 100
Carbon Dioxide 24
BUN 5 L
Creatinine 0.7
Glucose 91
Calcium 9.1
Total Bilirubin 2.1 H
AST 48
ALT 41
Alkaline Phosphatase 85
Vital Signs:
Vital Signs
Temp Pulse Resp BP Pulse Ox
98.3 F 72 18 124/81 100
08/16/24 07:00 02/09/25 07:00 08/16/24 07:00 08/16/24 07:00 08/16/24 07:00
I&O
08/15/24 08/16/24 08/17/24
06:59 06:59 06:59
Intake Total 2160 / 2160 960 / 960
Output Total 900 / 900 1500 / 1500
Balance 1260 / 1260 -540 / -540
Review of Systems
-
History Source: Patient
All other systems: Reviewed and negative
Physical Exam
-
General: No Apparent Distress
HEENT: Normocephalic
Neuro: Awake, Alert, Oriented and AO x 3; Negative Tremors
Psych: Calm
--- NOTE | 2024-08-16 09:43 | W.DCSUMMARY ---
Discharge Summary
Discharge Data
Date of Admission: 08/14/24
Date of Discharge: 08/16/24
-
Pending Results: No
Hospital Course
38yo M with PMHX of alcohol abuse came after he relapsed for alcohol withdrawal management and abdominal pain on admission that rapidly resolved. Most liekly patient with alcoholic gastritis. Strict alcohol cessation advised. Patient already has
substane abuse Case mgmt in '[facility]'. No significant signs of withdrawal, reasonable for rapid phenobarb taper to d/c with 3 more doses of low dose Phenobarb after completion of second day tapered dose in hospital. Patient tolerated food well.
Long half life of phenobarb will be useful to control residual withdrawal symptoms when at home, however no tremors, hallucinations or agitation, no ativan doses over past 24h of hospitalization.
I have spent at least 38min reviewing chart, test results, direct patient care
A/P:
#Alcohol abuse with withdrawal
#Hypokalemia
#Abdominal pain
#Elevated bilirubin
2/2 Alcoholic liver disease and steatohepatitis
Discharge Plan
-
Patient Disposition: Home (Routine Discharge)
Discharge Diagnosis/Procedures: Alcohol withdrawal
Diet: Regular
Activity: As tolerated
Driving Restrictions: As prior to admission
Referrals:
UNKNOWN - PT NOT,INTERVIEWE [Family Provider] -
Prescriptions:
New
phenobarbital 32.4 mg Tablet
32.4 mg PO TID Qty: 3 0RF
Continued
ascorbic acid (vitamin C) [Vitamin C] 500 mg Tablet
500 mg PO DAILY
magnesium oxide 400 mg magnesium Tablet
400 mg PO Q48H
pantoprazole [Protonix] 40 mg tablet,delayed release (DR/EC)
40 mg PO DAILY Qty: 30 0RF
thiamine HCl (vitamin B1) 100 mg tablet
100 mg PO BID
folic acid 1 mg tablet
1 mg PO DAILY
Discharge Orders:
Discharge Patient (As Directed); Ordered 08/16/24
Ordered By: Rodrigo Mccullough
Discharge Date and Time
Print Language: AUSTRIAN
[2024-08-16 11:00] VITALS: BP 117/82
[2024-08-16 15:00] VITALS: BP 147/90
[2024-08-16] MEDS: THIAMINE INJECTION IV (15:28)
== END 2024-08-16 16:16 | disposition home or self-care (01) | DRG 392 ==
LOC: 3 WEST ACU 16:05
PROVIDERS: Clinical Nurse Specialist Family Health; Physician Assistant; ADMITTING PHYSICIAN Hospitalist; ATTENDING PHYSICIAN Internal Medicine; EMERGENCY PHYSICIAN Emergency Medicine
DX: K29.20 Alcoholic gastritis without bleeding (principal); F10.239 Alcohol dependence with withdrawal, unspecified; I10 Essential (primary) hypertension; K21.9 Gastro-esophageal reflux disease without esophagitis; E83.42 Hypomagnesemia; E87.6 Hypokalemia; K70.9 Alcoholic liver disease, unspecified; F12.90 Cannabis use, unspecified, uncomplicated; F17.210 Nicotine dependence, cigarettes, uncomplicated; Z88.2 Allergy status to sulfonamides; Z11.52 Encounter for screening for COVID-19
CPT/HCPCS: 71046; 80053; 80306; 80307; 81003; 81015; 82010; 82077; 82977; 83690; 83735; 84100; 84484; 85025; 85610; 85730; 87086; 87502; 87811; 93005; 96361; 96374; 96375; 96376; 97161; 99285

== ENCOUNTER 2024-09-12 13:21 | Emergency (ER) | payer OTHER, SELFPAY ==
[2024-09-12 13:23] VITALS: BP 164/115
--- NOTE | 2024-09-12 13:56 | ED.GENMED ---
History of Present Illness
General
Chief Complaint: Withdrawal Symptoms
Time Seen by Provider: 09/12/24 13:42
History of Present Illness
History of Present Illness:
Patient is a 38-year-old male with history of alcohol use disorder, esophagitis presenting to the emergency department with withdrawal. Per chart review patient was admitted to the hospital last month for alcohol withdrawal and was discharged on a
phenobarbital taper. Patient states that he was doing better up until last week when he started drinking again. He drinks about half pint of vodka a day. Last drink 24 hours ago. He states that he drinks out of boredom and depression and the
lack of coping skills. No suicidal thoughts or homicidal thoughts. This is not in an effort to kill himself or hurt himself. He states that he would like to go to rehab this time. He last went to rehab 2 years ago. He states that he usually
gets admitted here because his alcohol withdrawal is so severe however he believes at this time he came earlier so the withdrawal is not as bad. Otherwise patient denies any complaints. His withdrawal symptoms currently are nauseous, vomiting and
some tingling to his extremities.
Past History
Past History
ED Past Medical History: HTN and Other (Alcohol abuse, reflux)
ED Past Surgical History: None
Social History
Tobacco: Smoker
Alcohol: Chronic alcoholic
Drug: Marijuana
Personal: Single
Living: with family
Employment: Employed
Family History
Family History: Other (Noncontributory)
Phy Exam
Physical Exam
Physical Exam:
GENERAL: in no acute distress
HEENT: normocephalic, extraocular movements intact, moist oral mucosa
NECK: normal inspection
RESPIRATORY: no respiratory distress, clear to auscultation bilaterally
CARDIOVASCULAR: regular rhythm, tachycardic rate
ABDOMEN/: soft, non-distended, non-tender to palpation, no rebound or guarding
EXTREMITIES: non-tender, no edema/swelling
NEUROLOGIC: awake and alert, moves all extremities
SKIN: warm
Course
Orders/Labs/Results
Orders:
Orders
09/12/24 13:55
Lorazepam [Ativan] 1 mg PO NOW STA
Ondansetron Orally Disint [Zofran Odt (Orally Disintegrating)] 4 mg PO NOW STA
09/12/24 16:12
Electrocardiogram (*1) Urgent
Reason for Study: Tachycardia
EKG- Treatment ONCE
Ondansetron Orally Disint [Zofran Odt (Orally Disintegrating)] 4 mg PO NOW STA
Vital Signs
Initial and Last Documented VS:
Initial Vital Signs
Pulse Resp BP Pulse Ox
117 18 164/115 99
09/12/24 13:23 09/12/24 13:23 09/12/24 13:23 09/12/24 13:23
Last Documented Vital Signs
Temp Pulse Resp BP Pulse Ox
97.4 F 109 18 151/91 99
09/12/24 13:25 09/12/24 15:16 09/12/24 15:16 09/12/24 15:16 09/12/24 15:16
MDM/Problems Addressed
Differential Diagnosis Includes:
38-year-old man presenting to the emergency department with alcohol withdrawal symptoms. Vitals are notable for heart rate in the 1 teens. Exam is otherwise reassuring. His CIWA score is 4. Will trial Zofran as well as Ativan and monitor his
MSAS score. Will discuss with [facility] for placement. At this time patient does not meet any criteria for inpatient admission for detox. EKG per my interpretation sinus tachycardia. Normal QTc.
*Critical Care Note
Total Time (30-74mins, 75-104mins- exclusive of procedures): Not Applicable
Update Note
Update Note:
On reevaluation patient tolerating p.o. His heart rate has improved. He did not need any additional Ativan. He did talk to [facility] who placed him at a facility for detox. He is stable for transfer at this time.
ED Attending Note
-
Portions of this chart may have been created with voice recognition software.� Occasional wrong word or��sound alike� substitutions may have occurred due to the inherent limitations of voice recognition software.
Discharge Plan
Departure
Patient Disposition: Acute Rehab Facility
Date of Disposition: 09/12/24
Time of Disposition: 16:49
Patient with high blood pressure during this ER visit?: No
Discharge Problem:
Alcohol withdrawal
Instructions: Alcohol Withdrawal (DC)
Prescriptions:
No Action
ascorbic acid (vitamin C) [Vitamin C] 500 mg Tablet
500 mg PO DAILY
magnesium oxide 400 mg magnesium Tablet
400 mg PO Q48H
pantoprazole [Protonix] 40 mg tablet,delayed release (DR/EC)
40 mg PO DAILY Qty: 30 0RF
thiamine HCl (vitamin B1) 100 mg tablet
100 mg PO BID
folic acid 1 mg tablet
1 mg PO DAILY
phenobarbital 32.4 mg Tablet
32.4 mg PO TID Qty: 3 0RF
Referrals:
NONE,* [Family Provider] -
Interventions
Interventions:
*Risk Screen - Suicide Last Done: 09/12/24 14:11
*General Assessment Last Done: 09/12/24 14:11
*Neglect/Abuse Screening Last Done: 09/12/24 14:11
*ED- Fall Risk Assessment Last Done: 09/12/24 14:11
*ED COVID-19 Vaccine History Last Done: 09/12/24 14:11
ED- Neurological Assessment Last Done: 09/12/24 14:00
ED-Psychological Assessment Last Done: 09/12/24 14:11
Discharge Date and Time
Print Language: FAROESE
[2024-09-12 14:00] VITALS: BP 144/118
[2024-09-12] MEDS: ZOFRAN ODT (ORALLY DISINTEGRATING) 4 MG PO ×2 (14:03→16:15)
[2024-09-12] MEDS: ATIVAN 1 MG PO ×2 (14:03→17:26)
[2024-09-12 15:16] VITALS: BP 151/91
[2024-09-12 17:23] VITALS: BP 148/98
== END 2024-09-12 18:10 ==
LOC: EMR 13:21
PROVIDERS: EMERGENCY PHYSICIAN Student in an Organized Health Care Education/Training Program
DX: F10.239 Alcohol dependence with withdrawal, unspecified (principal); R11.2 Nausea with vomiting, unspecified; R20.2 Paresthesia of skin; I10 Essential (primary) hypertension; F17.200 Nicotine dependence, unspecified, uncomplicated
CPT/HCPCS: 99285; 93005